=== PATIENT | male | born 1990 | race Caucasian/White ===

== ENCOUNTER 2023-05-20 00:02 | Emergency (ER) | payer OTHER, SELFPAY ==
[2023-05-20 00:04] VITALS: BP 143/91; PULSE 80; RESP 20; TEMP 37; O2SAT 100; BMI 19.9
--- NOTE | 2023-05-20 00:23 | CT_ITS ---
EXAM: CT ANGIOGRAPHY CHEST WITHOUT AND WITH INTRAVENOUS CONTRAST CLINICAL INDICATION: CP TECHNIQUE: Helically acquired angiography images were obtained of the chest without and with intravenous contrast. This CT exam was performed using one or more of the following dose reduction techniques: automated exposure control, adjustment of the mA and/or kV according to patient size, and/or use of iterative reconstruction technique. MIP reconstructed images were created and reviewed. CONTRAST: IV 100mL Isovue-370 RADIATION DOSE: CTDIvol = 5.55 mGy, DLP = 129.13 mGy-cm COMPARISON: No relevant prior studies available. FINDINGS: PULMONARY ARTERIES: Prior surgical changes involving the pulmonary outflow tract. No evidence of pulmonary embolism. AORTA: Unremarkable. Normal in caliber. No evidence of dissection. GREAT VESSELS OF AORTIC ARCH: Unremarkable. Normal in caliber. No evidence of dissection. SUPERIOR VENA CAVA: Left-sided SVC draining to the right atrium. LUNGS AND PLEURAL SPACES: No mass. No pleural effusion or thickening. No pneumothorax. HEART: Mild cardiomegaly. MEDIASTINUM: Unremarkable. No mediastinal or hilar adenopathy. Esophagus is unremarkable. No hiatal hernia. THYROID: Unremarkable. No thyroid lesions. BONES/JOINTS: Unremarkable. No suspicious lytic or blastic abnormality. CT/CTA Chest W/WO Contrast IMPRESSION: 1. No pulmonary embolism or other acute abnormality identified in the chest. 2. Cardiomegaly, and surgical changes consistent with the clinical history. Electronically Signed: Miguel Ángel Jackson MD at 1:26 EDT ,
[2023-05-20 00:30] LABS: Absolute Lymphocyte Count 2.98 X10^3/uL (0.83-4.51); Absolute Neutrophil Count 5.9 X10^3/uL (2.0-7.7); Basophil# 0.08 X10^3/uL; Basophil% 0.7 % (0-1); Eosinophil# 1.11 X10^3/uL; Eosinophils% 9.9 % (0-5); Hematocrit 49.3 % (40-54); Hemoglobin 16.4 g/dL (13.0-16.5); Lymphocyte # 2.98 X10^3/ul (0.83-4.51); Lymphocyte % 26.6 % (19-41); Mean Corp Hgb Conc 33.3 g/dL (32-36); Mean Corpuscular Hgb 29.7 pg (27.0-32.0); Mean Corpuscular Volume 89.2 fL (80-94); Mean Platelet Vol. 10.4 fl (6.2-12.0); Monocyte# 1.11 X10^3/uL; Monocyte% 9.9 % (0-10); NRBC Flagged by Analyzer 0 % (0-5); Neutrophil # 5.88 X10^3/uL (2.7-7.7); Neutrophil % 52.5 % (47-70); Platelet Count 153 K/mm3 (150-450); RBC Distribution Width CV 13.1 % (11.6-14.6); RBC Distribution Width SD 43.1 fl (35.1-43.9); Red Blood Count 5.53 M/mm3 (4.6-6.2); White Blood Count 11.2 K/mm3 (4.4-11.0)
[2023-05-20] MEDS: Ketorolac 30 MG/ML Syringe IV (00:40)
[2023-05-20] MEDS: 0.9% Normal Saline 1,000 ML 999 ML IV (00:40)
[2023-05-20 00:44] LABS: International Normalized Ratio 1.1; Prothrombin Time (Protime)PT. 13.9 SECONDS (11.7-14.9)
[2023-05-20 00:45] LABS: Partial Thromboplast Time 28.4 Seconds (24.1-36.2)
[2023-05-20 00:50] LABS: AST(SGOT) 32 U/L (15-37); Alanine Aminotransfer ALT/SGPT 36 U/L (16-61); Albumin, Serum 4.2 g/dL (3.2-5.0); Alkaline Phosphatase 98 U/L (45-117); Anion Gap 9 (5-15); BUN 12 mg/dL (7-18); BUN/Creat Ratio 12.4 RATIO (10-20); Bilirubin, Direct 0.23 mg/dL (0.00-0.30); Calcium,Total 8.9 mg/dL (8.5-10.1); Chloride 103 mmol/L (98-107); Creatinine, Serum 0.97 mg/dL (0.70-1.30); EST Glomerular Filtration Rate 96 mL/min (>60); Est Glom Filt Rate - Afr Amer 116 mL/min (>60); Globulin 4.1 g/dL (2.2-4.2); Glucose 112 mg/dL (74-106); Lipase 29 U/L (13-75); Magnesium 1.9 mg/dL (1.6-2.6); Potassium 3.4 mmol/L (3.5-5.1); Protein, Total 8.3 g/dL (6.4-8.2); Sodium Level 139 mmol/L (136-145); Troponin-I HS 10 pg/mL (3.0-78.0)
[2023-05-20 01:02] VITALS: BP 113/78; PULSE 65; RESP 19; O2SAT 98
--- NOTE | 2023-05-20 01:14 | EX.ED.DYSGE1 ---
HPI History of Present Illness Chief Complaint: Chest Pain Informant: patient and spouse/S.O. Narrative Narrative: Patient is a 32-year-old male with past medical history of Tetralogy of Fallot. He states he had 3 different cardiac surgeries when he was younger to correct this. He reports that he has been having chronic intermittent chest discomfort and has not been evaluated in multiple years. He does state he had similar event roughly 1 month ago and was seen at an outside hospital where his work-up was negative. He states that this evening he developed some midsternal to left-sided chest discomfort which has been constant for the last 3 hours. He states that this is abnormal for his recurrent chest pain as it is not typically last this long. Secondary to concern this could be cardiac in nature he does present for evaluation. He denies any previous surgery or history of DVT/PE. He states that there are no medications that he takes on a daily basis and he denies any history of illicit drug use 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 S/P TOF (tetralogy of Fallot) repair (~04/1996) Social History Smoking Status: Current every day smoker tobacco type: cigarettes alcohol intake: never substance use type: marijuana caffeine: Yes (all the time) Type: carbonated beverages ROS ROS ED Constitutional Constitutional ED: Denies chills or fever(s) ENT ENT ED: Denies sore throat Cardiovascular Cardiovascular: Reports chest pain; Denies palpitations or racing heartbeat Respiratory/Chest Respiratory/Chest: Denies cough or dyspnea Gastrointestinal Gastrointestinal: Denies abdominal pain, diarrhea, nausea or vomiting Genitourinary Genitourinary ED: Denies dysuria Musculoskeletal Musculoskeletal: Denies back pain, myalgias or neck pain Integumentary Denies rash Neurologic Neurologic: Denies headache(s) Hematologic/Lymphatic Hematologic/Lymphatic: Denies easy bleeding or easy bruising EXAM Physical Exam Const Vital Signs: 05/20/23 00:04 05/20/23 00:04 05/20/23 01:02 Temperature 98.6 F Temperature Source Oral Pulse Rate 80 65 Respiratory Rate 20 H 19 H Respiratory Effort Normal Blood Pressure 143/91 H 113/78 Blood Pressure Mean 108 89 Pulse Ox 100 98 05/20/23 02:00 Temperature Temperature Source Pulse Rate 65 Respiratory Rate 20 H Respiratory Effort Blood Pressure 111/85 H Blood Pressure Mean 93 Pulse Ox 97 Positive well nourished and well developed General Appearance ED: well developed HEENT Reports moist mucous membranes Eyes PERRL and EOMs intact bilaterally General Eye ED: Negative for scleral icterus Neck supple Neck Narrative: No nuchal rigidity or meningeal signs noted Chest Wall palpation of chest normal Chest Narrative: No bony deformity or crepitance palpated. Resp normal respiratory effort and clear to auscultation bilaterally Cardio regular rate and regular rhythm Rate: other Other Details: Radial and carotid pulses equal and symmetric Patient has a grade 5 out of 6 holosystolic murmur GI non-distended GI Narrative: There is faint tenderness to palpation in the midepigastric region without voluntary guarding or rigidity. No pulsatile mass or fluid wave Auscultation: normoactive bowel sounds Palpation: soft Extremity normal to inspection Extremity Narrative: No asymmetric edema no pitting edema negative Homans' sign bilaterally Neuro oriented x3, CN's II-XII intact bilaterally and no sensory deficits noted Sensorium / Orientation: alert Motor Exam: strength 5/5 throughout Psych mental status grossly normal Skin no rashes or lesions noted General Skin Exam: Negative for jaundice MDM MDM MDM Narrative Medical decision making narrative: Patient arrived to the ER no acute distress. He reported he has a history of recurrent chest pain but this 1 was lasting longer than his normal which was concerning for him. Chart review reveals he was seen roughly 1 month ago at an outside hospital for similar event and had a negative work-up. Therefore with recurrent symptoms I did elect to perform a CTA of the chest at this time along with cardiac work-up. Initial and delta troponin are normal at 10 his EKG is at his baseline with a right bundle branch block and his CTA reveals no acute chest pathology. On reevaluation the patient is resting comfortably. As differential is for acute coronary syndrome versus pulmonary embolus versus dissection versus pneumothorax versus pneumonia and those been ruled out by labs and imaging studies I do not feel there is need for further work-up and patient is otherwise safe for discharge. History & Record Review Discussion w/independent historian: Patient and Significant other Lab Data Attestation: I reviewed the patient's lab results. Labs: Laboratory Results - last 24 hr 05/20/23 05/20/23 00:06 01:57 WBC 11.2 H RBC 5.53 Hgb 16.4 Hct 49.3 MCV 89.2 MCH 29.7 MCHC 33.3 RDW Std Deviation 43.1 RDW Coeff of Boris 13.1 Plt Count 153 MPV 10.4 Immature Gran % (Auto) 0.400 Neut % (Auto) 52.5 Lymph % (Auto) 26.6 [place] % (Auto) 9.9 Eos % (Auto) 9.9 H Baso % (Auto) 0.7 Absolute Neuts (auto) 5.9 Absolute Lymphs (auto) 2.98 Nucleated RBC % 0 PT 13.9 INR 1.1 APTT 28.4 Sodium 139 Potassium 3.4 L Chloride 103 Carbon Dioxide 27.0 Anion Gap 9 BUN 12 Creatinine 0.97 Estim Creat Clear Calc 77.10 Est GFR (MDRD) Af Amer 116 Est GFR (MDRD) Non-Af 96 BUN/Creatinine Ratio 12.4 Glucose 112 H Calcium 8.9 Magnesium 1.9 Total Bilirubin 0.60 Direct Bilirubin 0.23 AST 32 ALT 36 Alkaline Phosphatase 98 Troponin I High Sens 10 10 Total Protein 8.3 H Albumin 4.2 Globulin 4.1 Lipase 29 Discharge Plan Triage Chief Complaint: Chest Pain ED Provider: Roman Palma Dx/Rx/DC Orders Clinical Impression: Nonspecific chest pain, Cardiac murmur, S/P TOF (tetralogy of Fallot) repair Instructions: ED Chest Pain, Uncertain Cause Prescriptions: No Action NK Primary Care Provider: Care Physician,No Primary Referrals: Care Physician,No Primary [Primary Care Provider] - Activity Restrictions/Additional Instructions: Your work-up today showed no signs of active heart damage blood clots or injury to your blood vessels. Follow-up with your health data administrator that you have scheduled for mid May and return to the ER should you have any further concerns Disposition Disposition: Home, Self Care
[2023-05-20 02:00] VITALS: BP 111/85; PULSE 65; RESP 20; O2SAT 97
[2023-05-20 02:25] LABS: Troponin-I HS 10 pg/mL (3.0-78.0)
[2023-05-20 02:46] VITALS: BP 109/83; PULSE 91; RESP 16; O2SAT 99
== END 2023-05-20 02:46 | disposition home or self-care (01) ==
PROVIDERS: Emergency Provider Emergency Medicine; Visit Provider Emergency Medicine
DX: R07.9 Chest pain, unspecified (principal); R01.1 Cardiac murmur, unspecified; Q21.3 Tetralogy of Fallot; F12.90 Cannabis use, unspecified, uncomplicated; F17.210 Nicotine dependence, cigarettes, uncomplicated
CPT/HCPCS: 71275; 80048; 80076; 83690; 83735; 84484; 85025; 85610; 85730; 93005; 96374; 99283; Q9967

== ENCOUNTER 2023-05-22 15:18 | Emergency (ER) | payer OTHER, SELFPAY ==
[2023-05-22 15:18] VITALS: BP 119/74; PULSE 71; RESP 16; TEMP 36.4; O2SAT 100; BMI 19.2
[2023-05-22 16:35] LABS: Absolute Lymphocyte Count 2.12 X10^3/uL (0.83-4.51); Absolute Neutrophil Count 8.1 X10^3/uL (2.0-7.7); Basophil# 0.09 X10^3/uL; Basophil% 0.7 % (0-1); Eosinophil# 0.79 X10^3/uL; Eosinophils% 6.5 % (0-5); Hematocrit 43.3 % (40-54); Lymphocyte # 2.12 X10^3/ul (0.83-4.51); Lymphocyte % 17.5 % (19-41); Mean Corp Hgb Conc 32.3 g/dL (32-36); Mean Corpuscular Hgb 29.5 pg (27.0-32.0); Mean Corpuscular Volume 91.4 fL (80-94); Mean Platelet Vol. 10.2 fl (6.2-12.0); Monocyte% 7.5 % (0-10); NRBC Flagged by Analyzer 0 % (0-5); Neutrophil # 8.14 X10^3/uL (2.7-7.7); Neutrophil % 67.5 % (47-70); Platelet Count 129 K/mm3 (150-450); RBC Distribution Width CV 13.1 % (11.6-14.6); RBC Distribution Width SD 44.1 fl (35.1-43.9); Red Blood Count 4.74 M/mm3 (4.6-6.2); White Blood Count 12.1 K/mm3 (4.4-11.0)
[2023-05-22 16:49] LABS: ALB/GLOB Ratio 1.2 RATIO (0.9-2.4); AST(SGOT) 50 U/L (15-37); Alanine Aminotransfer ALT/SGPT 59 U/L (16-61); Albumin, Serum 3.7 g/dL (3.2-5.0); Alkaline Phosphatase 84 U/L (45-117); Anion Gap 3 (5-15); BUN 21 mg/dL (7-18); BUN/Creat Ratio 19.3 RATIO (10-20); Calcium,Total 8.4 mg/dL (8.5-10.1); Chloride 108 mmol/L (98-107); Creatinine, Serum 1.09 mg/dL (0.70-1.30); EST Glomerular Filtration Rate 84 mL/min (>60); Est Glom Filt Rate - Afr Amer 101 mL/min (>60); Estimated Creatinine Clearance 66.15 ml/min; Globulin 3.2 g/dL (2.2-4.2); Glucose 103 mg/dL (74-106); Potassium 3.7 mmol/L (3.5-5.1); Protein, Total 6.9 g/dL (6.4-8.2); Sodium Level 139 mmol/L (136-145)
--- NOTE | 2023-05-22 17:29 | US_ITS ---
We are attempting to reach an attending provider to discuss findings. An addendum with communication details will be sent when the communication is complete. STUDY: ABDOMINAL ULTRASOUND - RIGHT UPPER QUADRANT REASON FOR VISIT: Male, 32 years old PAIN-RUQ TECHNIQUE: Ultrasound evaluation of the right upper quadrant was performed with real-time and static drummond-scale imaging. TECHNICAL QUALITY: Adequate. COMPARISON: None. FINDINGS: Liver: The liver measures 15.2 cm. There is normal echogenicity of the liver. The bile ducts are within normal limits. There is hepatic color flow. The direction of portal flow is hepatopetal. There is no demonstrated mass lesion. Gallbladder: Normal distended gallbladder. The gallbladder wall measures 7 mm. There is a positive sonographic Gaines''s sign. There is pericholecystic fluid. There are no gallstones. Common Bile Duct (C.B.D.): The common bile duct measures 3 mm. Pancreas: Normal size of the head, body and tail of the pancreas. There is normal echogenicity of the pancreas. There is no demonstrated pancreatic mass or cyst. Right Kidney: Normal size of the right kidney. The right kidney measures 9.5 cm. Normal renal cortex. The right cortex measures 1.1 cm. There is no demonstrated renal mass or cyst. There is no right hydronephrosis. US/Gallbladder IMPRESSION: Suspect acute acalculous cholecystitis. Electronically Signed: Sami Issa MD at 19:01 EDT ,
--- NOTE | 2023-05-22 17:30 | EX.ED.DYSGE1 ---
HPI <YONG Kathleen - Last Filed: 05/22/23 19:55> History of Present Illness Chief Complaint: Abd Pain Narrative Narrative: 32-year-old male with history of cardiac murmur, presenting to the emergency department with 3 days of right upper quad abdominal pain. Patient dates the pain started after he was eating, however now is all the time. Patient states the pain is worse with any movement, palpation. He did have 1 episode of vomitus however none the last 24 hours. He states he has been more constipated over the last several days. He states that his diet is poor, he does not eat a lot of fruits and vegetables, does not drink water and drinks a lot of soda. He denies any blood in his vomit or stool. 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 S/P TOF (tetralogy of Fallot) repair (~04/1996) Social History Smoking Status: Current every day smoker tobacco type: cigarettes alcohol intake: never substance use type: marijuana caffeine: Yes (all the time) Type: carbonated beverages ROS <YONG Kathleen - Last Filed: 05/22/23 19:55> ROS ED ROS Narrative Constitutional: Negative for fever, chills, weight loss, weakness Eyes: Negative for vision loss, vision change, double vision ENT: Negative for any sore throat, ear pain, congestion Cardiovascular: Negative for any chest pain, tightness, palpitations Respiratory: Negative for any cough, sputum production, hemoptysis, dyspnea, dyspnea on exertion, orthopnea Gastrointestinal: Negative for any nausea, vomiting, diarrhea, blood in stool, blood in vomit. Positive for abdominal pain, constipation : Negative for any urinary frequency, dysuria, retention, blood in urine Muscle skeletal: Negative for any muscle joint pain, stiffness, myalgias, arthralgias, neck pain, back pain Neurological: Negative for any headache, syncope, numbness or tingling, dizziness Skin: Negative for any rashes, lumps, itching, abrasions, lacerations Psychiatric: Negative for any depression, anxiety, stress, suicidal ideation, homicidal ideation Hematologic: Negative for any easy bruising, excessive bruising, easy bleeding Allergies: Negative for any eczema, hives, rash EXAM <YONG Kathleen - Last Filed: 05/22/23 19:55> Physical Exam Narrative Exam Narrative: Vital signs reviewed. HEET: Head normocephalic atraumatic, TMs clear bilaterally. Posterior pharynx is clear, moist mucous membranes. Nares clear bilaterally. Neck: Supple with no lymphadenopathy or tenderness. No signs of meningismus, negative jolt sign. Cardiac: Regular rate and rhythm no murmurs gallops or rubs, equal peripheral pulses bilaterally. Respiratory: Lungs clear to auscultation bilaterally. No chest tenderness. Abdomen: Soft, patient does have pain to the right upper quadrant, positive Gaines sign. No peritoneal signs. Nondistended. No abdominal bruit or pulsatile masses. No hepatosplenomegaly Extremities: No peripheral edema, no signs of gross trauma or deformity. Active full range of motion of all extremities. Neuro: Cranial nerves II through XII intact, no focal neurological deficits. Skin: Clean dry and intact with no rash, purpura, petechiae, vesicles or pustules. Backs/flank: No CVA tenderness, no midline spinal tenderness, no deformity. Psych: Normal mood and affect. No SI, HI or acute psychosis. Const Vital Signs: 05/22/23 15:18 05/22/23 19:35 05/22/23 20:23 Temperature 97.5 F L 98.0 F Temperature Source Temporal Pulse Rate 71 76 69 Respiratory Rate 16 18 16 Blood Pressure 119/74 126/83 H 116/84 H Blood Pressure Mean 89 97 94 Pulse Ox 100 99 96 Oxygen Delivery Method Room Air Room Air <Dr. Shane Porter MD - Last Filed: 05/22/23 20:36> Physical Exam Const Vital Signs: 05/22/23 15:18 05/22/23 19:35 05/22/23 20:23 Temperature 97.5 F L 98.0 F Temperature Source Temporal Pulse Rate 71 76 69 Respiratory Rate 16 18 16 Blood Pressure 119/74 126/83 H 116/84 H Blood Pressure Mean 89 97 94 Pulse Ox 100 99 96 Oxygen Delivery Method Room Air Room Air MDM <YONG Kathleen - Last Filed: 05/22/23 19:55> MDM Lab Data Labs: Laboratory Results - last 24 hr 05/22/23 05/22/23 16:18 18:33 WBC 12.1 H RBC 4.74 Hgb 14.0 Hct 43.3 MCV 91.4 MCH 29.5 MCHC 32.3 RDW Std Deviation 44.1 H RDW Coeff of Boris 13.1 Plt Count 129 L MPV 10.2 Immature Gran % (Auto) 0.300 Neut % (Auto) 67.5 Lymph % (Auto) 17.5 L [place] % (Auto) 7.5 Eos % (Auto) 6.5 H Baso % (Auto) 0.7 Absolute Neuts (auto) 8.1 H Absolute Lymphs (auto) 2.12 Nucleated RBC % 0 Sodium 139 Potassium 3.7 Chloride 108 H Carbon Dioxide 28.0 Anion Gap 3 L BUN 21 H Creatinine 1.09 Estim Creat Clear Calc 66.15 Est GFR (MDRD) Af Amer 101 Est GFR (MDRD) Non-Af 84 BUN/Creatinine Ratio 19.3 Glucose 103 Calcium 8.4 L Total Bilirubin 0.80 AST 50 H ALT 59 Alkaline Phosphatase 84 Total Protein 6.9 Albumin 3.7 Globulin 3.2 Albumin/Globulin Ratio 1.2 Lipase 18 Urine Color Yellow Urine Clarity Clear Urine pH 7.0 Ur Specific [place] 1.010 Urine Protein 30 H Urine Glucose (UA) Normal Urine Ketones Negative Urine Occult Blood Negative Urine Nitrite Negative Urine Bilirubin Negative Urine Urobilinogen 1 H Ur Leukocyte Esterase Negative Urine RBC 0 SEEN Urine WBC 0 SEEN Ur Squamous Epith Cells 0 SEEN Urine Bacteria 0 SEEN Urine Mucus 0 SEEN Radiography Diagnostic Testing: Clinical Impression(s) from Imaging Studies Gallbladder Ultrasound 05/22/23 17:29 IMPRESSION: Suspect acute acalculous cholecystitis. Electronically Signed: Sami Issa MD at 19:01 EDT , ADDENDUM: 05/22/231924 IMPRESSION: Suspect acute acalculous cholecystitis. N.B. : The above Results were Read Back by Sami Issa MD to Shane Porter MD, and understanding confirmed on 05/22/2023 19:18:57 (ET). Electronically Signed: Sami Issa MD at 19:01 EDT , Treatment and Re-Evaluation :: Patient appears to be in no obvious distress, patient's vital signs are stable, patient is in no distress. Patient presents to the emergency department for right upper quadrant abdominal pain. Secondary to the positive Gaines sign, patient will be given a right upper quadrant work-up. Patient received upper abdominal labs, right upper quadrant ultrasound. Patient laboratory values showed a CBC with a leukocytosis at 12.1. Patient's chemistries showed slight elevation in AST however no other abnormalities. Patient was given IV Toradol, GI cocktail. Patient reevaluate was feeling slightly improved. Patient's right upper quadrant ultrasound shows suspected acute acalculous cholecystitis. I spoke with surgery who came down to see the patient. Unfortunately patient does have tetralogy of Fallot, and has not had any work-up done on this for several years. Secondary this being a community hospital, the anesthesiologist feels uncomfortable. The patient will need to be transferred to a tertiary facility for work-up and cholecystectomy. Patient remained stable, patient looks nontoxic. We started on Zosyn, I spoke with Dr. Aguilera at [facility]. She will accept the patient, the patient be an ER to ER transfer. The patient was made aware, all questions answered, patient stable for transfer. <Dr. Shane Porter MD - Last Filed: 05/22/23 20:36> MDM MDM Narrative Medical decision making narrative: I have personally performed a face to face assessment of the patient and have reviewed the ANDREIA Note. I performed a substantive portion of the visit including all aspects of the following. My [place] findings include: History is remarkable for decreased appetite, right upper quadrant pain with nausea. He is uncertain whether his family history cholelithiasis. He denies intolerance to greasy or fried foods. He had 2 Samoan fries at 11:00. Pain presently does not radiate through to his back. Denies dysuria, frequency, urgency or hematuria. Denies history of renal ureterolithiasis. Denies cardiac or respiratory symptoms Exam is remarkable for significant tenderness in right upper quadrant with clinical Gaines sign. Patient states his pain did improve after the IV Toradol he was administered. With patient having decreased appetite clinical Gaines sign elevated white count ultrasound the gallbladder was obtained to assess for cholelithiasis, cholecystitis versus other etiology. Medical Decision Making differential diagnosis would include right lower lobe pneumonia, cholelithiasis, cholecystitis, liver disease, alcoholic liver disease etc. Other additions or changes: Because patient has history of tetralogy of Fallot that was repaired and has not had follow-up in 20 years anesthesia is reluctant to perform case here and recommends referral to tertiary care center. Patient was excepted by on-call surgeon at [facility]. Lab Data Attestation: I reviewed the patient's lab results. Lab results narrative: Count is elevated with no shift. Comprehensive metabolic panel is remarkable for an elevated BUN at 21. GFR is 84. AST is slightly elevated 50. Liver enzymes are otherwise unremarkable. Labs: Laboratory Results - last 24 hr 05/22/23 05/22/23 16:18 18:33 WBC 12.1 H RBC 4.74 Hgb 14.0 Hct 43.3 MCV 91.4 MCH 29.5 MCHC 32.3 RDW Std Deviation 44.1 H RDW Coeff of Boris 13.1 Plt Count 129 L MPV 10.2 Immature Gran % (Auto) 0.300 Neut % (Auto) 67.5 Lymph % (Auto) 17.5 L [place] % (Auto) 7.5 Eos % (Auto) 6.5 H Baso % (Auto) 0.7 Absolute Neuts (auto) 8.1 H Absolute Lymphs (auto) 2.12 Nucleated RBC % 0 Sodium 139 Potassium 3.7 Chloride 108 H Carbon Dioxide 28.0 Anion Gap 3 L BUN 21 H Creatinine 1.09 Estim Creat Clear Calc 66.15 Est GFR (MDRD) Af Amer 101 Est GFR (MDRD) Non-Af 84 BUN/Creatinine Ratio 19.3 Glucose 103 Calcium 8.4 L Total Bilirubin 0.80 AST 50 H ALT 59 Alkaline Phosphatase 84 Total Protein 6.9 Albumin 3.7 Globulin 3.2 Albumin/Globulin Ratio 1.2 Lipase 18 Urine Color Yellow Urine Clarity Clear Urine pH 7.0 Ur Specific [place] 1.010 Urine Protein 30 H Urine Glucose (UA) Normal Urine Ketones Negative Urine Occult Blood Negative Urine Nitrite Negative Urine Bilirubin Negative Urine Urobilinogen 1 H Ur Leukocyte Esterase Negative Urine RBC 0 SEEN Urine WBC 0 SEEN Ur Squamous Epith Cells 0 SEEN Urine Bacteria 0 SEEN Urine Mucus 0 SEEN Radiography Diagnostic Testing: Clinical Impression(s) from Imaging Studies Gallbladder Ultrasound 05/22/23 17:29 IMPRESSION: Suspect acute acalculous cholecystitis. Electronically Signed: Sami Issa MD at 19:01 EDT Reading Location ID and State: [id number] / [place] Tel , Service support , ADDENDUM: 05/22/231924 IMPRESSION: Suspect acute acalculous cholecystitis. N.B. : The above Results were Read Back by Sami Issa MD to Shane Porter MD, and understanding confirmed on 05/22/2023 19:18:57 (ET). Electronically Signed: Sami Issa MD at 19:01 EDT , Management Discussion w/another healthcare provider: Radiologist (Radiologist contacted me at 1916, Dr. Sami Issa to inform the patient has a calculus cholecystitis.) Discharge Plan Triage Chief Complaint: Abd Pain ED Midlevel Provider: James Dean ED Provider: Shane Porter Dx/Rx/DC Orders Clinical Impression: Tetralogy of Fallot, Acute acalculous cholecystitis Prescriptions: No Action NK Primary Care Provider: Care Physician,No Primary Referrals: Care Physician,No Primary [Primary Care Provider] - Disposition Disposition: Acute Care Hospital Discharge Location: [facility]
[2023-05-22] MEDS: Ketorolac 15 MG/ML Vial IV (18:00)
[2023-05-22] MEDS: 0.9% Normal Saline 1,000 ML 1000 ML IV (18:00)
[2023-05-22] MEDS: Mag Hydrox/Al Hydrox/Simeth 30 ML UDC PO (18:01)
[2023-05-22 18:35] LABS: Lipase 18 U/L (13-75)
[2023-05-22 18:46] LABS: Bacteria 0 SEEN /hpf (None Seen); Mucous, Urine 0 SEEN /hpf (<or=2+); Red Blood Cells-Urine 0 SEEN /hpf (0-5); Squamous Epithelial Cells - UA 0 SEEN /hpf (0-5); White Blood Cells 0 SEEN /hpf (0-5)
[2023-05-22 18:48] LABS: Color, Urine Yellow (Yellow); Glucose, Dipstick Normal (Normal); Ketone-Dipstick Negative (Negative); Leukocyte Esterase-Dipstick Negative /ul (Negative); Nitrite-Dipstick Negative (Negative); Occult Blood-Urine Negative /ul (Negative); Protein-Dipstick 30 mg/dl (Negative); Urine Bilirubin Dipstick Negative (Negative); Urine Clarity Clear (Clear); Urine Urobilinogen 1 mg/dl (Normal)
--- NOTE | 2023-05-22 19:26 | PCM.HP.STD ---
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 S/P TOF (tetralogy of Fallot) repair (~04/1996) Social History Smoking Status: Current every day smoker tobacco type: cigarettes alcohol intake: never substance use type: marijuana caffeine: Yes (all the time) Type: carbonated beverages Vital Signs Vital Signs Vital Signs: 05/22/23 15:18 Temperature 97.5 F L Temperature Source Temporal Pulse Rate 71 Respiratory Rate 16 Blood Pressure 119/74 Blood Pressure Mean 89 Pulse Ox 100 Oxygen Delivery Method Room Air Weight Weight: 105 lb Body Mass Index (BMI) 19.2 Results Lab / Micro Data 05/22/23 16:18 05/22/23 16:18 Labs: Laboratory Results - last 24 hr 05/22/23 16:18: WBC 12.1 H, RBC 4.74, Hgb 14.0, Hct 43.3, MCV 91.4, MCH 29.5, MCHC 32.3, RDW Std Deviation 44.1 H, RDW Coeff of Boris 13.1, Plt Count 129 L, MPV 10.2, Immature Gran % (Auto) 0.300, Neut % (Auto) 67.5, Lymph % (Auto) 17.5 L, [place] % (Auto) 7.5, Eos % (Auto) 6.5 H, Baso % (Auto) 0.7, Absolute Neuts (auto) 8.1 H, Absolute Lymphs (auto) 2.12, Nucleated RBC % 0, Sodium 139, Potassium 3.7, Chloride 108 H, Carbon Dioxide 28.0, Anion Gap 3 L, BUN 21 H, Creatinine 1.09, Estim Creat Clear Calc 66.15, Est GFR (MDRD) Af Amer 101, Est GFR (MDRD) Non-Af 84, BUN/Creatinine Ratio 19.3, Glucose 103, Calcium 8.4 L, Total Bilirubin 0.80, AST 50 H, ALT 59, Alkaline Phosphatase 84, Total Protein 6.9, Albumin 3.7, Globulin 3.2, Albumin/Globulin Ratio 1.2, Lipase 18 05/22/23 18:33: Urine Color Yellow, Urine Clarity Clear, Urine pH 7.0, Ur Specific [place] 1.010, Urine Protein 30 H, Urine Glucose (UA) Normal, Urine Ketones Negative, Urine Occult Blood Negative, Urine Nitrite Negative, Urine Bilirubin Negative, Urine Urobilinogen 1 H, Ur Leukocyte Esterase Negative, Urine RBC 0 SEEN, Urine WBC 0 SEEN, Ur Squamous Epith Cells 0 SEEN, Urine Bacteria 0 SEEN, Urine Mucus 0 SEEN Radiology Impression Gallbladder Ultrasound 05/22/23 17:29 IMPRESSION: Suspect acute acalculous cholecystitis. Electronically Signed: Sami Issa MD at 19:01 EDT , ADDENDUM: 05/22/23 192 IMPRESSION: Suspect acute acalculous cholecystitis. N.B. : The above Results were Read Back by Sami Issa MD to Shane Porter MD, and understanding confirmed on 05/22/2023 19:18:57 (ET). Electronically Signed: Sami Issa MD at 19:01 EDT ,
[2023-05-22 19:35] VITALS: BP 126/83; PULSE 76; RESP 18; O2SAT 99
--- NOTE | 2023-05-22 19:38 | CON.PCM.SX_ITS ---
Assessment & Plan Assessment/Plan (1) Acute cholecystitis: (2) Nonspecific chest pain: (3) S/P TOF (tetralogy of Fallot) repair: PLAN: Plan Patient has not followed up with cardiology for many years after his tetralogy of Fallot repair-about 15 years per pt. He does have appointment next month. Discussed with patient due to this along with the complex cardiac history would recommend transfer to tertiary care facility for surgery. Did discuss with anesthesia who also agreed. Mery Torrez M.D. Pager: [phone] [facility] [address] [place] [address], Outpatient Pavilion, [address] [place] [address] Office: [phone] HPI Consult Data Date of Consult: 05/22/23 HPI Narrative HPI Narrative: CECILIA LE, is a 32 M who presents to the ER due to right upper quadrant pain. Patient states has had this for about 3 days. Initially did come and go but for last day has been pretty constant. Patient has not really been able to eat much for the last 3 days. Patient states that did get worse try to eat some fries. Patient states in the past he did have symptoms like this but they did not last this long. Patient has a complex cardiac history with status post tetralogy of Fallot repair?in total 3 heart surgeries by the age of 11. Patient states he has not followed up with cardiology for about 15 years his first appointment is next month. Patient states he does have chest pain daily. Asked patient what he does for this he stated that he just breathes through it. Patient had ultrasound of the gallbladder showed gallbladder wall thickening of 7 mm no gallstones were seen on ultrasound, normal common bile duct, positive Gaines's. Patient's white blood count is 12.1. Patient's LFTs are within normal meds except for lipase AST. 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 S/P TOF (tetralogy of Fallot) repair (~04/1996) Social History Smoking Status: Current every day smoker tobacco type: cigarettes alcohol intake: never substance use type: marijuana caffeine: Yes (all the time) Type: carbonated beverages ROS Constitutional Constitutional: Reports anorexia Eyes Eyes: Denies change in vision ENT HEENT: Denies dysphagia Cardiovascular Cardiovascular: Reports chest pain Respiratory/Chest Respiratory/Chest: Denies cough Gastrointestinal Gastrointestinal: Reports abdominal pain and nausea; Denies dysphagia Genitourinary Genitourinary: Denies dysuria Musculoskeletal Musculoskeletal: Denies joint swelling Integumentary Integumentary: Denies jaundice Neurologic Neurologic: Denies dizziness Psychiatric Psychiatric: Denies depression Hematologic/Lymphatic Hematologic/Lymphatic: Denies easy bleeding Physical Exam Const alert and oriented x3 General Appearance: cooperative HEENT head/scalp atraumatic Neck supple Chest Chest Narrative: Well-healed sternal incision Resp normal respiratory effort Cardio Rate: regular rate GI soft to palpation Palpation: tender epigastric, RUQ and Gaines's sign Extremity normal to inspection Skin no rashes or lesions noted Neuro CN's II-XII intact bilaterally Psych mental status grossly normal Lab / Micro Data 05/22/23 16:18 05/22/23 16:18 Labs: Laboratory Results - last 24 hr 05/22/23 16:18: WBC 12.1 H, RBC 4.74, Hgb 14.0, Hct 43.3, MCV 91.4, MCH 29.5, MCHC 32.3, RDW Std Deviation 44.1 H, RDW Coeff of Boris 13.1, Plt Count 129 L, MPV 10.2, Immature Gran % (Auto) 0.300, Neut % (Auto) 67.5, Lymph % (Auto) 17.5 L, [place] % (Auto) 7.5, Eos % (Auto) 6.5 H, Baso % (Auto) 0.7, Absolute Neuts (auto) 8.1 H, Absolute Lymphs (auto) 2.12, Nucleated RBC % 0, Sodium 139, Potassium 3.7, Chloride 108 H, Carbon Dioxide 28.0, Anion Gap 3 L, BUN 21 H, Creatinine 1.09, Estim Creat Clear Calc 66.15, Est GFR (MDRD) Af Amer 101, Est GFR (MDRD) Non-Af 84, BUN/Creatinine Ratio 19.3, Glucose 103, Calcium 8.4 L, Total Bilirubin 0.80, AST 50 H, ALT 59, Alkaline Phosphatase 84, Total Protein 6.9, Albumin 3.7, Globulin 3.2, Albumin/Globulin Ratio 1.2, Lipase 18 05/22/23 18:33: Urine Color Yellow, Urine Clarity Clear, Urine pH 7.0, Ur Specific [place] 1.010, Urine Protein 30 H, Urine Glucose (UA) Normal, Urine Ketones Negative, Urine Occult Blood Negative, Urine Nitrite Negative, Urine Bilirubin Negative, Urine Urobilinogen 1 H, Ur Leukocyte Esterase Negative, Urine RBC 0 SEEN, Urine WBC 0 SEEN, Ur Squamous Epith Cells 0 SEEN, Urine Josette teria 0 SEEN, Urine Mucus 0 SEEN Radiology Impression Gallbladder Ultrasound 05/22/23 17:29 IMPRESSION: Suspect acute acalculous cholecystitis. Electronically Signed: Sami Issa MD at 19:01 EDT , ADDENDUM: 05/22/231924 IMPRESSION: Suspect acute acalculous cholecystitis. N.B. : The above Results were Read Back by Sami Issa MD to Shane Porter MD, and understanding confirmed on 05/22/2023 19:18:57 (ET). Electronically Signed: Sami Issa MD at 19:01 EDT , Charges/Coding Visit Charges Office Visits / Consults: [id number] OP Consult L4
[2023-05-22 20:23] VITALS: BP 116/84; PULSE 69; RESP 16; TEMP 36.7; O2SAT 96
== END 2023-05-22 22:58 | disposition short-term general hospital (02) ==
PROVIDERS: Nurse Practitioner; Emergency Provider Emergency Medicine; Visit Provider Emergency Medicine
DX: Q21.3 Tetralogy of Fallot (principal); K81.0 Acute cholecystitis; F12.90 Cannabis use, unspecified, uncomplicated; F17.210 Nicotine dependence, cigarettes, uncomplicated
CPT/HCPCS: 76705; 80053; 81001; 83690; 85025; 96365; 96366; 96375; 99283; J7030

== ENCOUNTER 2023-05-31 13:10 | Emergency (ER) | payer OTHER, MEDICAID, SELFPAY ==
[2023-05-31 13:11] VITALS: BP 132/97; PULSE 79; RESP 22; TEMP 36.4; O2SAT 99; BMI 18.6
--- NOTE | 2023-05-31 13:25 | EKG12_ITS ---
Test Reason : CP Blood Pressure : / mmHG Vent. Rate : 081 BPM Atrial Rate : 081 BPM P-R Int : 132 ms QRS Dur : 180 ms QT Int : 450 ms P-R-T Axes : 033 251 059 degrees QTc Int : 522 ms Normal sinus rhythm Right bundle branch block , plus right ventricular hypertrophy Abnormal ECG Confirmed by DARREL LEDEZMA, CLARA ([id number]), editorial writer KWAN PEREZ ([id number]) on 06/03/2023 10:45:32 AM Referred By: Confirmed By:CLARA ROJO MD
--- NOTE | 2023-05-31 13:26 | EDS_ITS ---
HPI History of Present Illness Chief Complaint: Chest Pain Narrative Narrative: 32-year-old male past medical history of tetralogy of Fallot, status postrepair in 1995, also states he has a leaky pulmonary valve presents with chest pain that he was having problems with yesterday evening, then again today. He relates history that he was admitted to [facility] on Thursday of last week and transferred up to [facility] for cholecystectomy. It was because he was having heart issues and he has had history of tetralogy of Fallot repair. They did not end up taking out his gallbladder because they found he did have a leaky pulmonary valve for which he takes Lasix. He was referred to [facility] to get his heart fixed prior to removal of his gallbladder. He states that he did not qualify because of his insurance so he quit his job and is trying to get Medicaid so he can have heart surgery. He states he was driving today, and felt chest pain and pressure all across his chest. He denies any nausea or vomiting. It is similar to when he had what he describes as a panic attack. 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 Severe pulmonic insufficiency Tetralogy of Fallot Home Medications NK 04/16/23 [History Last Taken Unknown] hydroxyzine pamoate 25 mg capsule (Vistaril) 25 mg PO TID PRN anxiety #15 caps 05/31/23 [Rx Last Taken Unknown] Allergy/AdvReac Type Severity Reaction Status Date / Time No Known Allergies Allergy Verified 05/31/23 13:11 Surgical History Hx of Kiko-Taussig shunt (~09/1991) Hx of cardiac catheterization (~05/12/01) Hx of pulmonic valve replacement (~11/03/00) 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 HEENT: No sore throat. No neck pain. No loss of vision. No rhinorrhea. Cardiovascular: Positive chest pressure/chest pain. No palpitations. No pedal edema. Respiratory: No cough, positive shortness of breath. Abdominal: No abdominal pain. No nausea. No vomiting. Genitourinary: No dysuria. No hematuria. Musculoskeletal: No myalgias. No arthralgias. Neurologic: No headaches. No dizziness. No lightheadedness. Skin: No rash. No change in color. Psychiatric: No depression. Mild anxiety. EXAM Physical Exam Narrative Exam Narrative: Afebrile. Vital signs noted. HEENT: Normocephalic. Atraumatic. PERRL, EOMI. Neck soft and supple. No point tenderness or step off. Cardiovascular: Regular rate and rhythm. Positive murmurs, rubs, or gallops appreciated. Respiratory: No tachypnea. Lungs clear to auscultation bilaterally. Gastrointestinal: Abdomen soft, nontender, with normoactive bowel sounds. No rebound or guarding. Neurological: Awake. Alert. Nonfocal, nonlateralizing. Skin: No rash. Normal color. No pallor. Musculoskeletal: No pedal edema. Full range of motion extremities. Const Vital Signs: 05/31/23 13:11 05/31/23 13:49 05/31/23 15:10 Temperature 97.5 F L Temperature Source Temporal Pulse Rate 79 74 Respiratory Rate 22 H 17 Blood Pressure 132/97 H 110/79 Blood Pressure Mean 108 89 Pulse Ox 99 97 Oxygen Delivery Method Room Air Room Air Room Air Heart Score History: Slightly/Non-Suspicious ECG: Normal Age: </= 45 years Risk Factors: 1 or 2 Risk Factors Score: 1 MDM MDM MDM Narrative Medical decision making narrative: I reviewed the patient's prior records. It had problems with chest pains and palpitations in the past and is a chronic cardiac murmur. He has had pulmonary insufficiency which is severe. There is no signs of fluid overload currently. Chest pain work-up will be pursued. EKG was obtained and interpreted by myself independently as normal sinus rhythm at 81 bpm without ectopy or acute ST changes. No STEMI. He does have a right bundle branch block and right ventricular hypertrophy, but no significant change from EKG dated May 20, 2023. Serial troponins will be obtained along with chest x-ray to rule out any pneumonia as a cause of his chest pressure. However, this is lower on the differential as he is afebrile and history and physical is not suggestive of this. He has had nonspecific chest pain in the past. I do feel that it may be related to panic attacks, and/or chronic conditions. I reviewed his laboratory work from today and he has slightly elevated leukocytosis of 16.2, but is chronically elevated, slight hemoconcentration of 17.4 with hematocrit 50.4, platelet count normal at 239. Review of his electrolyte panel shows sodium slightly low at 133, I am hesitant to give him a large amount of fluid given his pulmonic valve insufficiency. BUN slightly elevated 24 with creatinine 1.12. Glucose is appropriately elevated at 118 with a normal anion gap of 10. Initial high-sensitivity troponin is 6 with 2-hour being 8. I do feel he has been ruled out by biomarkers for cardiac ischemia. Chest x-ray in 1 view was interpreted by myself independently as no acute process, no pneumothorax or pneumonia. I reviewed the radiology report which confirms my independent interpretation. Upon repeat examination his blood pressure has normalized to 110/79. He is not hyperventilating any longer. I do feel that there is an anxiety component to this. He was told to follow-up with psychology and/or psych Yulia westbrook, or even his primary care physician. I do not feel benzodiazepines are indicated, but he will be given a short course of therapy of Vistaril to take as needed for anxiety. At this point in time, I feel he can be discharged safely home with follow-up and that he does not require observation. Return instructions to the emergency department were reviewed. Disposition is discharged home, in stable condition. History & Record Review Discussion w/independent historian: Patient Additional record(s) reviewed:: Prior ED visit and Prior labs Lab Data Attestation: I reviewed the patient's lab results. Labs: Laboratory Results - last 24 hr 05/31/23 05/31/23 13:25 15:26 WBC 16.2 H RBC 5.91 Hgb 17.4 H Hct 50.4 MCV 85.3 MCH 29.4 MCHC 34.5 RDW Std Deviation 38.9 RDW Coeff of Boris 12.6 Plt Count 239 MPV 10.1 Immature Gran % (Auto) 0.400 Neut % (Auto) 60.5 Lymph % (Auto) 21.7 [place] % (Auto) 6.9 Eos % (Auto) 9.3 H Baso % (Auto) 1.2 H Absolute Neuts (auto) 9.8 H Absolute Lymphs (auto) 3.50 Nucleated RBC % 0 Sodium 133 L Potassium 3.5 Chloride 99 Carbon Dioxide 24.0 Anion Gap 10 BUN 24 H Creatinine 1.12 Estim Creat Clear Calc 62.29 Est GFR (MDRD) Af Amer 98 Est GFR (MDRD) Non-Af 81 BUN/Creatinine Ratio 21.4 H Glucose 118 H Calcium 9.1 Troponin I High Sens 6 8 Radiography Diagnostic Testing: Clinical Impression(s) from Imaging Studies Chest X-Ray 05/31/23 13:50 IMPRESSION: No radiographic evidence of acute cardiopulmonary disease. Electronically Signed: Miguel Ángel Woodward MD at 14:05 EDT Reading Location ID and State: [facility] [place] , Service support , Discharge Plan Triage Chief Complaint: Chest Pain ED Provider: Nehemias Maldonado Dx/Rx/DC Orders Clinical Impression: Anxiety attack, S/P TOF (tetralogy of Fallot) repair, Chest pain Instructions: ED Chest Pain, Uncertain Cause, ED Panic Attack Prescriptions: New hydroxyzine pamoate [Vistaril] 25 mg capsule 25 mg PO TID PRN (Reason: anxiety) Qty: 15 0RF No Action NK Primary Care Provider: Care Physician,No Primary Referrals: James Covington MD [Med Staff - Active Staff] - As Needed Care Physician,No Primary [Primary Care Provider] - Activity Restrictions/Additional Instructions: Follow-up with your primary care provider as needed. Return with increased pain, new or worsening symptoms. Disposition Disposition: Home, Self Care
[2023-05-31 13:36] LABS: Absolute Neutrophil Count 9.8 X10^3/uL (2.0-7.7); Basophil# 0.19 X10^3/uL; Basophil% 1.2 % (0-1); Eosinophils% 9.3 % (0-5); Hematocrit 50.4 % (40-54); Hemoglobin 17.4 g/dL (13.0-16.5); Lymphocyte % 21.7 % (19-41); Mean Corp Hgb Conc 34.5 g/dL (32-36); Mean Corpuscular Hgb 29.4 pg (27.0-32.0); Mean Corpuscular Volume 85.3 fL (80-94); Mean Platelet Vol. 10.1 fl (6.2-12.0); Monocyte# 1.11 X10^3/uL; Monocyte% 6.9 % (0-10); NRBC Flagged by Analyzer 0 % (0-5); Neutrophil # 9.78 X10^3/uL (2.7-7.7); Neutrophil % 60.5 % (47-70); Platelet Count 239 K/mm3 (150-450); RBC Distribution Width CV 12.6 % (11.6-14.6); RBC Distribution Width SD 38.9 fl (35.1-43.9); Red Blood Count 5.91 M/mm3 (4.6-6.2); White Blood Count 16.2 K/mm3 (4.4-11.0)
--- NOTE | 2023-05-31 13:50 | RAD_ITS ---
EXAM: XR CHEST, 1 VIEW CLINICAL INDICATION: chest pain TECHNIQUE: Frontal view of the chest. COMPARISON: No relevant prior studies available. FINDINGS: LUNGS AND PLEURAL SPACES: Unremarkable. No consolidation or edema. No pneumothorax. No effusion. HEART: Unremarkable. Cardiac silhouette not enlarged. MEDIASTINUM: Central airways and mediastinal contour are unremarkable. BONES/JOINTS: Unremarkable. SOFT TISSUES: Unremarkable. RAD/Chest 1 View (Portable) IMPRESSION: No radiographic evidence of acute cardiopulmonary disease. Electronically Signed: Miguel Ángel Woodward MD at 14:05 EDT ,
[2023-05-31 13:56] LABS: Anion Gap 10 (5-15); BUN 24 mg/dL (7-18); BUN/Creat Ratio 21.4 RATIO (10-20); Calcium,Total 9.1 mg/dL (8.5-10.1); Chloride 99 mmol/L (98-107); Creatinine, Serum 1.12 mg/dL (0.70-1.30); EST Glomerular Filtration Rate 81 mL/min (>60); Est Glom Filt Rate - Afr Amer 98 mL/min (>60); Estimated Creatinine Clearance 62.29 ml/min; Glucose 118 mg/dL (74-106); Potassium 3.5 mmol/L (3.5-5.1); Sodium Level 133 mmol/L (136-145); Troponin-I HS (w/2H Reflex) 6 pg/mL (3.0-78.0)
[2023-05-31 15:10] VITALS: BP 110/79; PULSE 74; RESP 17; O2SAT 97
[2023-05-31 15:32] LABS: Reflex Troponin-HS? (from REC) Y
[2023-05-31 15:53] LABS: Troponin-I HS 8 pg/mL (3.0-78.0)
[2023-05-31 16:11] VITALS: BP 111/80
== END 2023-05-31 16:12 | disposition home or self-care (01) ==
PROVIDERS: Emergency Provider Emergency Medicine; Visit Provider Emergency Medicine
DX: F41.1 Generalized anxiety disorder (principal); Q21.3 Tetralogy of Fallot; R07.9 Chest pain, unspecified; F12.90 Cannabis use, unspecified, uncomplicated; F17.210 Nicotine dependence, cigarettes, uncomplicated; Z79.899 Other long term (current) drug therapy
CPT/HCPCS: 71045; 80048; 83880; 84484; 85025; 93005; 99284; A4216

== ENCOUNTER → 2023-10-15 | Outpatient (CLI) | payer OTHER, MEDICAID, SELFPAY ==
--- NOTE | 2023-10-15 11:06 | VDLE_ITS ---
Reason For Study: R/O Occlusion / DVT RIGHT LEFT GSV is normal. GSV is normal. CFV is compressible, spontaneous, competent CFV is compressible, spontaneous, competent, and demonstrates pulsatile venous flow. and demonstrates pulsatile venous flow. FV is compressible, spontaneous, competent FV is compressible, spontaneous, competent and demonstrates pulsatile venous flow. and demonstrates pulsatile venous flow. POP V is compressible, spontaneous, competent POP V is compressible, spontaneous, competent and demonstrates pulsatile venous flow. and demonstrates pulsatile venous flow. T/P Trunk is compressible. T/P Trunk is compressible. PTV is compressible. PTV is compressible. RT PerV is compressible. LT PerV is compressible. Procedure SSV is PARTIALLY COMPRESSIBLE with Vein Wall This is a venous duplex using B-mode, color thickening noted throughout the vessel. flow and spectral Doppler. Exam performed in department. The exam was diagnostic. VL/Venous Duplex US - Manjit Extrem Interpretation Summary Chronic superficial vein thrombosis is noted in the left small saphenous vein. Deep veins of the bilateral lower extremities are patent and compressible segme ntally. There is no evidence of bilateral lower extremity deep vein thrombosis. The bilateral great saphenous veins appear patent and compressible segmentally. Ordering Physician: LUKE CASAS Referring Physician: LUKE CASAS Performed By: Jag Pelletier RVT
--- OUTSIDE RECORDS SUMMARY | 2023-10-15 11:36 | XMS RPT_ITS | CCD ---
Author Name Unknown Address [address] [place] [address] Organization [facility] Care Team Providers Care Salon Designer Name Role Phone PHYSICIAN, NONE Primary Care Physician Unavailab dunia AYON MD, DR OBRIEN Attending Unavailab dunia PHYSICIAN, NONE Primary Care Unavailable NANY LEDEZMA, DR OBRIEN Attending Unavailab duque PHYSICIAN, NONE Primary Care Unavailable Unavailable Primary Care Provider Unavailabl e Unavailable Primary Care Provider Unavailabl e NONE, PCP Referring Unavailable VERNA BECKWITH Admitting Unavailable BRAD TOBAR Consulting Unavailable JERED BARRETO Attending Unavailable No algologist, Md Primary Care Provider Lesly vailable NO PRIMARY CAREMD Primary Care Unavailable TREE CARMONA Attending Unavailable TREE CARMONA Referring Unavailable NO PRIMARY MD CHARELNE Primary Care Unavailable TREE CARMONA Attending Unavailable KRISTINETREE ABDALLA P Referring Unavailable DOC, [facility] Primary Care Unavailable REFERRED, SELF Referring Unavailable KRISTINETREE ABDALLA Attending Unavailable DOC, MISC Primary Care Unavailable ARTIE MENDENHALL Attending Unavailable BELKIS, MISC Referring Unavailable NO PRIMARY CAREMD Primary Care Unavailable DOC, MISC Referring Unavailable KRISTINETREE ADBALLA P Attending Unavailable DOC, MISC Primary Care Unavailable JULIETA MARQUES Attending Unavailable JULIETA MARQUES Referring Unavailable Doc , [facility] [place] Care Provider Unavailabl e Medications Current Medications Medication Drug Class(es) Dates Sig (Normalized) Sig (Original) amoxicillin 500 mg oral capsule (3 sources) Penicillin-class Antibacterial Start: 06-12-2023 amoxicillin (AMOXIL) 500 MG capsule Take 4 Capsules (2,000 mg) by mouth as needed for Other (SBE prophylaxis) Take 1 hour before dental cleanings and procedures 4 Capsule 6 06/12/2023 Active amoxicillin 875 mg / clavulanate 125 mg oral tablet (6 sources) Penicillin-class Antibacterial Start: 05-25-2023 End: 05-28-2023 take 1 tablet by mouth in the morning amoxicillin-clavu lanate (Augmentin) 875-125 MG tablet Take 1 tablet by mouth in the morning and 1 tablet before bedtime. Do all this for 3 days. 6 tablet 0 05/25/2023 05/28/2023 Active Completed/Discontinued Medications Medication Drug Class(es) Dates Sig (Normalized) Sig (Original) Acetaminophen (2 sources) Start: 05-23-2023 End: 05-25-2023 take 1 tablet by mouth every six hours as needed for pain and fever acetaminophen (Tylenol) tablet 650 mg 100 ml calcium gluconate 20 mg/ml injection (2 sources) Start: 05-23-2023 End: 05-23-2023 calcium gluconate 2000 mg in 100 mL IVPB premix 1 ml HYDROmorphone hydrochloride 1 mg/ml cartridge (2 sources) Opioid Agonist Start: 05-23-2023 End: 05-25-2023 HYDROmorphone (Dilaudid) injection 0.5 mg melatonin 3 mg oral tablet (2 sources) Start: 05-23-2023 End: 05-25-2023 take 3 mg by mouth once daily as needed for sleep 3 mg, Oral, Nightly PRN, sleep, Starting on 05/23/23 at 0445 ondansetron ODT (Zofran-ODT) disintegrating tablet 4 mg (2 sources) Start: 05-23-2023 End: 05-25-2023 take 1 tablet by mouth every eight hours as needed for nausea and vomiting ondansetron ODT (Zofran-ODT) disintegrating tablet 4 mg oxyCODONE hydrochloride 5 mg oral tablet (2 sources) Opioid Agonist Start: 05-23-2023 End: 05-25-2023 take 1 tablet by mouth every four hours as needed for pain and pain oxyCODONE (Roxicodone) immediate release tablet 5 mg piperacillin 3000 mg / tazobactam 375 mg injection (2 sources) Penicillin-clas s Antibacterial, beta Lactamase Inhibitor Start: 05-23-2023 End: 05-24-2023 take 3375 mg intravenously every eight hours 3,375 mg, IntraVENous, at 12.5 mL/hr, Administer over 4 Hours, Every 8 hours, First dose on 05/23/23 at 0500, For 4 doses Dosage or interval has been adjusted per P&T Renal Dosing policy. premix bag Suspected Indication (Select all that apply): Intra-Abdominal Infection polyethylene glycol 3350 15021 mg powder for oral solution (2 sources) Osmotic Laxative Start: 05-23-2023 End: 05-25-2023 polyethylene glycol (PEG) 3350 (Miralax) packet 17 g Problems Problem Classification Problem Date Documented Date Episodic/Chronic Abdominal pain (11 sources) Right upper quadrant pain; Translations: [Right upper quadrant pain] Onset: 05-23-2023 05-22-2023 Episodic Cardiac and circulatory congenital anomalies (2 sources) Tetralogy of Fallot; Translations: [Tetralogy of Fallot] Onset: 08-28-2023 06-02-2023 Chronic Cardiac and circulatory congenital anomalies (8 sources) History of repair of tetralogy of Fallot; Translations: [Personal history of (corrected) congenital malformations of heart and circulatory system] Onset: 05-23-2023 05-23-2023 Episodic Complication of device; implant or graft (2 sources) Cardiac complication; Translations: [Other mechanical complication of other cardiac and vascular devices and implants, initial encounter] Onset: 08-28-2023 10-14-2023 Episodic Hemorrhoids (1 source) Thrombosed hemorrhoids; Translations: [Perianal venous thrombosis] Onset: 01-20-2023 Episodic Nonspecific chest pain (1 source) Chest pain; Translations: [Other chest pain] Onset: 04-01-2023 Episodic Other and ill-defined heart disease (1 source) Disorder of right cardiac ventricle ; Translations: [Cardiomegaly] Onset: 08-28-2023 08-28-2023 Chronic Other lower respiratory disease (3 sources) Orthopnea; Translations: [Orthopnea] Onset: 05-23-2023 05-23-2023 Episodic Other lower respiratory disease (1 source) Orthopnea; Translations: [Orthopnea] Onset: 05-23-2023 Episodic Residual codes; unclassified (1 source) H/O cardiac surgery; Translations: [Other specified postprocedural states] Onset: 08-28-2023 08-28-2023 Episodic Results Test Name Value Interpretation Reference Range Facil ity Vital Signs Date Time Vital Sign Value Performing Clinician Facility 05-25-2023 10:00-0400 Body mass index (BMI) [Ratio] 18.39 kg/m2 Glaileo Weathers MD Work Phone: [facility] 05-25-2023 10:00-0400 Body weight 45.6 kg Galileo Weathers MD Work Phone: [facility] 05-25-2023 09:02-0400 Body temperature 97.59 [degF] Galileo Weathers MD Work Phone: [facility] 05-25-2023 09:02-0400 Diastolic blood pressure 70 mm[Hg] Galileo Weathers MD Work Phone: [facility] 05-25-2023 09:02-0400 Heart rate 59 /min Galileo Weathers MD Work Phone: [facility] 05-25-2023 09:02-0400 Respiratory rate 15 /min Galileo Weathers MD Work Phone: [facility] 05-25-2023 09:02-0400 SaO2% (BldA) [Mass fraction] 100 % Galileo Weathers MD Work Phone: [facility] 05-25-2023 09:02-0400 Systolic blood pressure 105 mm[Hg] Galileo Weathers MD Work Phone: [facility] 05-25-2023 08:55-0400 Body height 157.5 cm Galileo Weathers MD Work Phone: [facility] 05-22-2023 14:39-0400 Body temperature 97.9 [degF] Misty Schwab APRN.ELECTRICAL LABORATORY TECHNICIAN Work Phone: [facility] 05-22-2023 14:39-0400 Body weight 49.9 kg Misty Schwab APRN.ELECTRICAL LABORATORY TECHNICIAN Work Phone: [facility] 05-22-2023 14:39-0400 Diastolic blood pressure 82 mm[Hg] Misty Schwab APRN.ELECTRICAL LABORATORY TECHNICIAN Work Phone: [facility] 05-22-2023 14:39-0400 Heart rate 68 /min Misty Schwab [employer] CAPTAIN.ELECTRICAL LABORATORY TECHNICIAN Work Phone: [facility] 05-22-2023 14:39-0400 Respiratory rate 18 /min Misty Schwab [employer] CAPTAIN.ELECTRICAL LABORATORY TECHNICIAN Work Phone: [facility] 05-22-2023 14:39-0400 SaO2% (BldA) [Mass fraction] 100 % Misty Zaheer [employer] CAPTAIN.ELECTRICAL LABORATORY TECHNICIAN Work Phone: [facility] 05-22-2023 14:39-0400 Systolic blood pressure 117 mm[Hg] Misty Schwab [employer] CAPTAIN.ELECTRICAL LABORATORY TECHNICIAN Work Phone: [facility] 04-01-2023 11:34-0400 Diastolic Blood Pressure Non-Invasive [address] MICAH AYON MD [facility] 04-01-2023 11:34-0400 Heart rate 60 /min DR MICAH AYON MD [facility] 04-01-2023 11:34-0400 Respiratory rate 19 /min DR MICAH AYON MD [facility] 04-01-2023 11:34-0400 Systolic Blood Pressure Non-Invasive [address] MICAH AYON MD [facility] 04-01-2023 10:13-0400 Diastolic Blood Pressure Non-Invasive [address] MICAH AYON MD [facility] 04-01-2023 10:13-0400 Systolic Blood Pressure Non-Invasive [address] MICAH AYON MD [facility] 04-01-2023 10:09-0400 Heart rate 63 /min DR MICAH AYON MD [facility] 04-01-2023 10:09-0400 Respiratory rate 15 /min DR MICAH AYON MD [facility] 04-01-2023 09:10-0400 Body height 157.[address] MICAH AYON MD [facility] 04-01-2023 09:10-0400 Body temperature 98.06 [degF] DR MICAH AYON MD [facility] 04-01-2023 09:10-0400 Body weight 47.[address] MICAH AYON MD [facility] 04-01-2023 09:10-0400 Diastolic Blood Pressure Non-Invasive [address] MICAH AYON MD [facility] 04-01-2023 09:10-0400 Heart rate 68 /min DR MICAH AYON MD [facility] 04-01-2023 09:10-0400 Respiratory rate 18 /min DR MICAH AYON MD [facility] 04-01-2023 09:10-0400 Systolic Blood Pressure Non-Invasive [address] MICAH AYON MD [facility] 01-20-2023 16:06-0400 Body temperature 98.78 [degF] DR MICAH AYON MD [facility] 01-20-2023 16:06-0400 Body weight [address] MICAH AYON MD [facility] 01-20-2023 16:06-0400 Diastolic Blood Pressure Non-Invasive [address] MICAH AYON MD [facility] 01-20-2023 16:06-0400 Heart rate 75 /min DR MICAH AYON MD [facility] 01-20-2023 16:06-0400 Respiratory rate 16 /min DR MICAH AYON MD [facility] 01-20-2023 16:06-0400 Systolic Blood Pressure Non-Invasive [address] MICAH AYON MD [facility] Encounters Encounter Date Encounter Type Care Provider Facility Start: 10-14-2023 End: 10-14-2023 Subsequent hospital visit by physician Verónica Lamb Handwork [employer]TAIN-ELECTRICAL LABORATORY TECHNICIAN Work Phone: [facility] - [facility] Procedures Date Procedure Procedure Detail Performing Clinician Start: 10-14-2023 Basic metabolic 2000 panel - Serum or Plasma Verónica Lamb Handwork [employer] CAPTAIN-ELECTRICAL LABORATORY TECHNICIAN Work Phone: Start: 10-14-2023 COMPLETE BLOOD COUNT WITH DIFFERENTIAL Verónica Adonis Handwork [employer] CAPTAIN-ELECTRICAL LABORATORY TECHNICIAN Work Phone: Start: 10-14-2023 TYPE & SCREEN Verónica Lmab Handwork [employer] CAPTAIN-ELECTRICAL LABORATORY TECHNICIAN Work Phone: Start: 06-24-2023 Natriuretic peptide Jose julia Carmona MD Work Phone: Start: 05-25-2023 Echo tthrc r-t 2d w/wom-mode compl spec&colr d Zachary Curry MD Work Phone: Start: 05-24-2023 Comprehensive metabo lic panel Verna Beckwith MD Work Phone: Start: 05-23-2023 Us abdominal real ti me w/image limited Karthikeyan Mccall MD Work Phone: Start: 05-23-2023 Radiologic exam ches t single view Karthikeyan Mccall MD Work Phone: Start: 05-23-2023 ABO and Rh group [Ty pe] in Blood by Confirmatory method Karthikeyan Mccall MD Work Phone: Start: 05-23-2023 Basic metabolic pane l calcium total Karthikeyan Mccall MD Work Phone: Start: 05-23-2023 C-reactive protein Gregory Baker MD Work Phone: Start: 05-23-2023 Ecg routine ecg w/le ast 12 lds trcg only w/o i&r Karthikeyan Mccall MD Work Phone: Plan of Treatment Date Care Activity Detail Author Start: 2041 Zoster Vaccines (1 of 2) Zoste r Vaccines (1 of 2) [employer] Start: 11-13-2023 End: 11-13-2023 Patient encounter procedure 11/13/2023 1:30 PM EST Office Visit [place] [address] [place], [place] [id number] Tree Carmona MD [address] [place], [place] [id number] [facility] Start: 10-20-2023 End: 10-20-2023 Admission to same day surgery center 10/20/2023 8:00 AM EST - 10/20/2023 1:40 PM EST Surgery [facility] [address] [place], [place] [id number] Artie Mendenhall MD [address] [place], [place] [id number] Cardiac Right Ventricle To Pulmonary Artery Conduit Placement [facility] Payers Date Payer Category [place] [id number] 2023-Present [address] [place] [address] [id number] 2023 Unknown [id number] 2022 Unknown [id number] 2022 Unknown [id number] 1990 Unknown [id number] 1990 Unknown [id number] 1990 Unknown [id number] 1990 Unknown [id number] 1990 Unknown [id number] Unknown [id number] Unknown [id number] Unknown [id number] Unknown [id number] Unknown [id number] Social History Date Type Detail Facility Tobacco smoking status [facility] Start: 1990 Sex Assigned At Male A [facility] Start: 05-22-2023 Tobacco smoking stat [facility] Never smoked tobacco [facility] Start: 05-22-2023 End: 05-23-2023 Tobacco use and exposure Smokeless tobacco non-user [facility] Start: 05-22-2023 End: 05-23-2023 History of Social function [facility] Start: 05-22-2023 End: 05-23-2023 Tobacco use panel [facility] Start: 1990 Sex Assigned At Not on file [facility] Start: 05-23-2023 [facility] History of tobacco use Cigarette Smoker [facility] Start: 05-23-2023 Alcohol intake Ex-drinker (finding) [facility] Within the last year , have you been afraid of your partner or ex-partner? No [facility] How often to you hav e a drink containing alcohol? Never [facility] How many standard drinks containing alcohol do you have on a typical day? Patient does not drink [facility] Start: 05-23-2023 Sexual orientation Heterosexual (fin ding) [facility] Start: 05-13-2023 End: 05-23-2023 Exposure to SARS-CoV-2 (event) Not sure [facility] Tobacco smoking stat [facility] Tobacco smoking consumption unknown [facility] Functional Status Date Assessment Result Facility 04-01-2023 Functional Status Up ad dustin [facility] 01-20-2023 Functional Status Independent [facility] 01-20-2023 Functional Status Standard Safet y ID band on, Call device within reach, Bed in low position, Wheels locked, Visitor at bedside [facility] Mental Status Date Assessment Result Facility 04-01-2023 Mental Status Orientation Oriented x 4 [facility] 04-01-2023 Mental [facility] 01-20-2023 Mental Status Orientation Oriented x 4 [facility] Clinical Notes 01-20-2023 to 08-14-2023 Telephone Encounter - Aishwarya Escobar - 06/03/2023 8:51 AM EDTTelephone Encounter - Penelope Finnegan RN - 05/27/2023 4:22 PM EDTTelephone Encounter - Penelope Finnegan RN - 05/27/2023 4:22 PM EDTAppointments Note Date & Type Note Facility 08-14-2023 Note CARDIAC CATHERIZATIO N CONFERENCE DISCUSSION Date of Discussion: 08/14/2023 Name: Omega Le : 1990 Age: 32 y.o. Traffic Survey Technician: FARHAT Discussed by: FARHAT Discussion: Omega Le is a 32 y.o. 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 He is s/p left lateral thoracotomy and subsequent 2 sternotomies. He had placement of 20 mm pulmonary homograft as RV to PA conduit in 2000. This conduit is dysfunctional and now has severe conduit stenosis. Omega has exercise intolerance and documented decreased exercise capacity on cardiopulmonary stress testing. He has not had any significant documented tachy or bradycardia arrhythmias. There is mild tricuspid valve regurgitation. His right ventricle is hypertrophied plus dilated. There is right atrial dilatation also. Reason(s) for discussion: Surgical versus transcatheter conduit replacement Studies reviewed: Cardiac MRI and echocardiogram Recommendations/Plan: Because of the size of the previous RV to PA conduit (20 mm) as well as prior history of endocarditis, he is not an ideal candidate for transcatheter replacement of the RV to PA conduit. Transcatheter replacement perhaps is technically feasible but will not serve this patient over her lifetime. It was felt that if we perform surgical re-replacement of the RV to PA conduit with the hope of placing a larger size valve such as 27 mm or so, then the future interventions could be transcatheter based. Although he has history of substance abuse, he has been clean for last few months. He quit smoking about 3 months ago. No other comorbidities noted. The group felt that he could not have his surgical RV to PA conduit replacement here at [facility]. Schedule CT surgery consult with Dr. Mendenhall Omega's is and due in November, it would be preferred to schedule this Omega in early September so that he recovers by the time his delivers. Summarized By: Tree Carmona MD Portions of this medical record have been created using voice recognition software and may have minor errors which are inherent in voice recognition systems. [facility] 08-13-2023 Note Omega gu is here for consultation at the request of Self Referred for Chief Complaint Patient presents with Follow Up TOF repair History of Presenting Problem Omega is a 32 y.o. male who returns for routine follow up. He reports no new complaints. Omega was born in July 1990, born at 32 weeks of gestation, stayed at [facility] for 8 weeks. First operation was left-sided BT shunt by Dr. 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 It was a 20 mm pulmonary homograft valve. Surgery performed in October 2000 at [facility] by Dr. Yo Zuniga. Subsequent to admissions for rule out endocarditis No medical records subsequent to April 2001 were available. Overall, it appears that he has a left lateral thoracotomy as well as 2 previous sternotomies. History of suspected endocarditis twice with no prior cardiac surgeries for endocarditis. He is adopted. He said his biological mother did a lot of drugs. His adopted mother in 2020 and his father is still alive. He is here with his younger brother today, who is also adopted. He was admitted 05/22-05/25 at [facility]. He was being evaluated for RUQ abdominal pain, concern for gallbladder disease. An echocardiogram was completed, it showed RV is severely dilated w moderately reduced systolic function,Tricuspid Valve: Severe (4+) regurgitation. He was started on IV Lasix and transitioned to daily oral dosing with Aldactone. His symptoms improved and he was discharged home. He has had shortness of breath recently with stair climbing, he feels heaviness in his chest. 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 He has 2 sons, a 10 and an 8 y.o and a baby on the way with his current girlfriend. Cardiac Review of System Cardiovascular: Patient's ECG reviewed. Patient has a murmur and palpitations (frequent). Patient has no chest pain, cyanosis, dizziness, edema or syncope. Patient has dyspnea with vigorous activity. He has no diaphoresis. He has no hypertension. Patient has a history of congenital heart defect. 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 Review of Systems Constitutional: Negative for diaphoresis and fever. Respiratory: Negative for cough, hemoptysis and shortness of breath. Cardiovascular: Positive for dyspnea on exertion (going up steps) and palpitations (frequent). Negative for syncope and cyanosis. Gastrointestinal: Positive for abdominal pain (3 weeks ago; resolved now). Negative for nausea and vomiting. Neurological: Negative for dizziness and weakness. Psychiatric/Behavioral: Positive for substance abuse (History of substance abuse, he is clean now. Occasionally takes weed). Negative for depression. The patient is not nervous/anxious. Past Medical History Past Medical History: Diagnosis Date TOF (tetralogy of Fallot) Past Surgical History: Procedure Laterality Date TETRALOGY OF FALLOT REPAIR Medications: Current Outpatient Medications: amoxicillin (AMOXIL) 500 MG capsule, Take 4 Capsules (2,000 mg) by mouth as needed for Other (SBE prophylaxis) Take 1 hour before dental cleanings and procedures, Disp: 4 Capsule, Rfl: 6 hydrOXYzine (VISTARIL) 25 MG capsule, Take by mouth every 6 hours (Patient not taking: Reported on 08/13/2023), Disp: , Rfl: Allergies: No Known Allergies Family Medical History: Omega is adopted. Omega History reviewed. No pertinent family history. Social History: Lives with his girlfriend. He is expecting a baby in November 2023. Past history of smoking. No current smoking or illicit drug use. Physical Exam: Vitals: 08/13/23 1142 BP: 119/72 Pulse: 83 Resp: 16 SpO2: 98% Height: (!) 156.9 cm Weight - Scale: 50 kg Body mass index is 20.31 kg/m . Physical Exam Vitals reviewed. Constitutional: General: He is not in acute distress. Appearance: He is well-developed. He is not diaphoretic. Eyes: General: No scleral icterus. Neck: Thyroid: No thyromegaly. Vascular: No JVD. Trachea: No tracheal deviation. Cardiovascular: Normal rate, regular rhythm and S1 normal. No extrasystoles are present. PMI is (more content not included)... [facility] 06-25-2023 Note CARDIAC CATHETERIZAT ION CONFERENCE DISCUSSION Date of Discussion: 06/25/2023 Name: Omega Le : 1990 Age: 32 y.o. Traffic Survey Technician: Kristine Discussed by: Mary Carmona Discussion: 32 y.o. male with history of Tetralogy of Fallot, poor historian. Two surgeries as an - likely BT shunt then full repair based on thoracotomy and sternotomy scars. Reports two additional surgeries for infections, could not clarify. No surgical records available - procedures not done at [facility]. 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 Symptomatic with SOB and easy fatigue with activity. Admitted at OSH for heart failure, and RUQ pain. Echo done, showing moderate to severe TR = 81 mm Hg, dilated RV with depressed systolic function, significant valvar PS with peak 67 mm Hg, at least moderate PI, small LV with good function. Holter with scattered PVC's, wide QRS with duration about 200 msec. Cardiac MRI performed and reviewed. Moderate to significant RVH with RV mass 53.1g. RV EDV/BSA is 103.8 cc/m2. RVEF is depressed, EF = 33%. LV mildly decreased in size, function normal. Flow void/dark oblong density seen adherent to the MPA wall in the region of the pulmonary valve which significantly restricts valve leaflet motion and creates PS. Peak velocity on MRI = 3.1 m/sec. There is moderate W[place] with PRF = 26-32%. Tricuspid regurgitant fraction is only 11% on this study, not well characterized. Normal MPA and branch PA dimensions. Cannot determine etiology of dark flow void/oblong density at the pulmonary valve - could be calcification, could be vestige of endocarditis. Given the symptoms present and depressed RV function, patient should have an intervention at this time. Discussion regarding next best steps in management. Recommendations/Plan: Obtain surgical records to understand what repair was done, if surgery done for endocarditis as patient suggests. Plan for cardiac catheterization once surgical notes are reviewed and history determined so as to plan for best intervention to help alleviate the gradient present and hopefully restore RV function. Summarized By: Mar Hernandez MD [facility] Television Operator [facility] Clinical Inspector Balance Wheel Motion of Pediatrics [facility] 06-12-2023 Note Omega Chandra Liana gu is here for consultation at the request of [facility] for Chief Complaint Patient presents with New Patient Visit H/O tetralogy of Fallot repair History of Presenting Problem Omega presents today to establish care with [facility]. He has Tetralogy of Fallot. He had 2 surgeries in infancy, his first was from the left thoracotomy approach and the second from the front, sternal approach. He has had 2 other surgeries, one around 6 y.o. and the last around 11 y.o. He thinks those were needed because of infections. His surgeries were done at [facility]. He was seen at [facility] by Dr Saucedo until age 13. He has not seen a Traffic Survey Technician since that time (about 19 to 20 years of lost to follow-up). He is adopted. He said his biological mother did a lot of drugs. His adopted mother in 2020 and his father is still alive. He is here with his younger brother today, who is also adopted. He was admitted 05/22-05/25 at [facility]. He was being evaluated for RUQ abdominal pain, concern for gallbladder disease. An echocardiogram was completed, it showed RV is severely dilated w moderately reduced systolic function,Tricuspid Valve: Severe (4+) regurgitation. He was started on IV Lasix and transitioned to daily oral dosing with Aldactone. His symptoms improved and he was discharged home. He has had shortness of breath recently with stair climbing, he feels heaviness in his chest. He had been smoking about a pack of cigarettes a day, but quit during the hospitalization. 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 He has 2 sons, a 10 and an 8 y.o and a baby on the way with his current girlfriend. Cardiac Review of System Cardiovascular: Patient's ECG reviewed. Patient has a murmur and palpitations (frequent). Patient has no chest pain, cyanosis, dizziness, edema or syncope. Patient has dyspnea with vigorous activity. He has no diaphoresis. He has no hypertension. Patient has a history of congenital heart defect. 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 Review of Systems Constitutional: Negative for diaphoresis and fever. Respiratory: Negative for cough, hemoptysis and shortness of breath. Cardiovascular: Positive for dyspnea on exertion (going up steps) and palpitations (frequent). Negative for syncope and cyanosis. Gastrointestinal: Positive for abdominal pain (3 weeks ago; resolved now). Negative for nausea and vomiting. Neurological: Negative for dizziness and weakness. Psychiatric/Behavioral: Positive for substance abuse (History of substance abuse, he is clean now. Occasionally takes weed). Negative for depression. The patient is not nervous/anxious. Past Medical History Past Medical History: Diagnosis Date TOF (tetralogy of Fallot) Past Surgical History: Procedure Laterality Date TETRALOGY OF FALLOT REPAIR Medications: Outpatient Encounter Medications as of 06/12/2023 Medication Sig Dispense Refill hydrOXYzine (VISTARIL) 25 MG capsule Take by mouth every 6 hours spironolactone (ALDACTONE) 25 MG tablet Take by mouth furosemide (LASIX) 20 MG TABS tablet Take by mouth 2 times daily No facility-administered encounter medications on file as of 06/12/2023. Allergies: Not on File Family Medical History: Omega is adopted. Omega History reviewed. No pertinent family history. Social History: Lives with his girlfriend. He is expecting a baby in November 2023. Past history of smoking. No current smoking or illicit drug use. Physical Exam: Vitals: 06/12/23 0934 BP: 134/89 Resp: 20 SpO2: 100% Height: 157.5 cm Weight - Scale: (!) 46.5 kg Body mass index is 18.75 kg/m . Physical Exam Vitals reviewed. Constitutional: General: He is not in acute distress. Appearance: He is well-developed. He is not diaphoretic. Eyes: General: No scleral icterus. Neck: Thyroid: No thyromegaly. Vascular: No JVD. Trachea: No tracheal deviation. Cardiovascular: Normal rate, regular rhythm and S1 normal. No extrasystoles are present. PMI is not displaced. Exam reveals no gallop, no S3, no friction rub and no aortic ejection click. Pulses are strong and palpable. Murmur heard. Systolic murmur is present with a grade of 3/6. No diastolic murmur is present. Pulses: Radial pulses are 2+ on the right side. Femoral pulses are 2+ on the right side. S2 to appear to be single and loud Pulmonary: Effort: Pulmonary effort is normal. No respiratory distress. Breath sounds: Normal breath sounds. No wheezing. Abdominal: General: Bowel sounds are normal. There is no distension. Palpations: Abdomen is soft. Tenderness: There is no abdominal tenderness. Musculoskeletal: Cervical back: Neck supple. Skin: General: Skin is dry. Coloration: Skin is not pale. Nails: There is no clubbing or cyanosis. Sternotomy scar and left thoracotamy scar noted (more content not included)... [facility] 06-03-2023 Miscellaneous Notes Reminder has been placed in the mail. Aishwarya Escobar June 03, 2023 8:52 AM documented in this encounter [facility] 05-27-2023 Telephone encounter Note LMOVM for pt with meds and follow up appt information s/p hsop call. [facility] 05-27-2023 Miscellaneous Notes LMOVM for pt with meds and follow up appt information s/p hsop call. Discharged with heart failure on 05/25. Needs 72 hour post discharge phone call. (Has appointment [facility]12 with congenital cardiology) documented in this encounter [facility] 05-25-2023 Telephone encounter Note Discharged with heart failure on 05/25. Needs 72 hour post discharge phone call. (Has appointment with [facility] on 06/12 with congenital cardiology) [facility] Work Phone: 05-25-2023 Miscellaneous Notes Discharged with heart failure on 05/25. Needs 72 hour post discharge phone call. (Has appointment with [facility] on 06/12 with congenital cardiology) documented in this encounter [facility] 05-25-2023 Note Discharge Summary Omega Le : 1990 ADMIT DATE: 05/22/2023 DISCHARGE DATE: 05/25/2023 PRIMARY CARE PHYSICIAN: No primary care provider on file. VISIT STATUS: Admission CODE STATUS: Full Code DISCHARGE DIAGNOSES: Principal Problem: RUQ pain HOSPITAL COURSE: Omega is a 32 y.o. male who was diagnosed with chest wall pain one month ago (04/01/23) at [facility], then on the day of ED presentation he went to [facility] for 3-days of progressively worsening RUQ pain that was exacerbated by eating. He had peritoneal signs and was directed to the ED. Went to [place] ED where he reported several months of intermittent chest & years of intermittent abdominal pain. US was c/f acute cholecystitis, so he was transferred to [facility] ED. Imaging here with edematous gallbladder wall and negative sonographic Gaines's. Patient also complaining of orthopnea & CALDERÓN there was concern that he might be in decompensated CHF given his tetrology, with cholecystalgia due to congestion--with potential to resolve GB issues by treating his cardiac status without resorting to cholecystectomy. Was lost to cardiology follow-up and has not been seen since age 13, though he has an upcoming appt in May to reestablish care. The following is a summary of his diagnosis/management during his stay here at [facility]: Acute, acute on chronic, unstable/uncontrolled chronic problems: # Volume overload possibly pulmonary insufficiency with RV dysfunction - cardiology saw. Dr. Hernandez states severe RV dysfunction, 4+ TR, possible severe pulmonic stenosis. He appears euvolemic on exam and feels well today. He's had 2 doses of Lasix 20 mg IV. He will likely need further imaging and repeat procedure/surgery. Given his young age, he should also establish with a transplant program as well. This would be best established at [facility] or [facility]. Otherwise, Dr. Hernandez states okay for discharge on lasix 20mg daily and aldactone daily as well. # Acute cholecystalgia suspected d/t #1 - surgery has seen, states no surgery. EXTREMELY low probability of cholecystitis given prior evaluation and unequivocally normal CRP & PCT this AM, dc'd pip/tazo earlier, however as per surgery rec will order amox/clav with final day 05/28; discussed this with patient, agrees to remain on antibx # Thrombocytopenia, mild # Elevated AST, mild # Elevated INR, mild # Leukocytosis, resolved # Hypocalcemia, resolved Stable chronic problems affecting care, new non-acute diagnoses: Tetrology of Fallot s/p repair & PV replacement Bifascicular block/RBBB and LAFB Polysubstance abuse (tobacco, cocaine, heroin) Physical exam: Eyes: no scleral icterus Oral: moist Heart: S1S2 heard, RRR, loud SM 3-4/6 heard Lungs: CTAB Abdomen: soft NT ND BS+ SIGNIFICANT DIAGNOSTIC STUDIES: 2D echo: Left Ventricle: Left ventricle is smaller than normal. Normal wall thickness. Normal left ventricular systolic function. The EF by visual approximation is 70%. Normal wall motion. Septal flattening in diastole and systole consistent with right ventricular volume and pressure overload. Right Ventricle: Right ventricle is severely dilated. Moderately reduced systolic function. Tricuspid Valve: Severe (4+) regurgitation. Unable to assess RVSP reliably because of severe PS/Moderate PI. However the RVSP is severely elevated as TR peak velocity is 4.5 m/s (peak gradient 81 mmhg) Pulmonic Valve: The pulmonic valve was not well visualized. Severely thickened cusps. Moderate (2+) regurgitation. Severe stenosis noted. PV mean gradient is 39 mmHg. PV peak velocity is 4.1 m/s. PV peak gradient is 68 mmHg. Right Atrium: Right atrium is severely dilated. Patient has had had TOF repair surgeries as a child, but no details are available . Recommend Cardiac MR for further evaluation of anatomy, RV and pulmonic valve. CONSULTANTS: Cardiology General surgery RECOMMENDED NEXT STEPS: Follow up at DISCHARGE MEDICATIONS: Medication List START taking these medications amoxicillin-clavulanate 875-125 MG tablet Commonly known as: Augmentin Take 1 tablet by mouth in the morning and 1 tablet before bedtime. Do all this for 3 days. furosemide 20 MG tablet Commonly known as: Lasix Take 1 tablet (20 mg) by mouth daily. Do not start before May 26, 2023. Start taking on: May 26, 2023 spironolactone 25 MG tablet Commonly known as: Aldactone Take 1 tablet (25 mg) by mouth daily. Where to Get Your Medications These medications were sent to [id number] - [place], [place] - [address] [place] [address] amoxicillin-clavulanate 875-125 MG tablet furosemide 20 MG tablet spironolactone 25 MG tablet DIET: Adult diet Regular ACTIVITY: as recommended per cardiology (Dr. Hernandez spoke with him about avoiding heavy lifting/pulling but states he's okay to go back to work. ) (more content not included)... [facility] 05-25-2023 Hospital Discharg e instructions Corky Hernandez MD - 05/25/2023 2:08 PM EDT Activity restrictions: Patient advised to avoid heavy pushing, pulling, and lifting (>15 lbs). Low- to moderate-level activity such as walking, light lifting, climbing step stools/ladders are not restricted. Margaret Sprague RN - 05/25/2023 2:22 PM EDT [place] [phone] [place] [address] Next Steps: Appointment: TBD Instructions: Dr Pauline Oilvia [address] [place] [phone] Cardiology [facility] Next Steps: Appointment: TBD Instructions: Heart and Vascular [facility] [phone] Cardiology documented in this encounter [facility] 05-25-2023 Hospital course Narrative Discharge Summary Omega Le : 1990 ADMIT DATE: 05/22/2023 DISCHARGE DATE: 05/25/2023 PRIMARY CARE PHYSICIAN: No primary care provider on file. VISIT STATUS: Admission CODE STATUS: Full Code DISCHARGE DIAGNOSES: Principal Problem: RUQ pain HOSPITAL COURSE: Omega is a 32 y.o. male who was diagnosed with chest wall pain one month ago (04/01/23) at [facility], then on the day of ED presentation he went to [facility] for 3-days of progressively worsening RUQ pain that was exacerbated by eating. He had peritoneal signs and was directed to the ED. Went to [place] ED where he reported several months of intermittent chest & years of intermittent abdominal pain. US was c/f acute cholecystitis, so he was transferred to [facility] ED. Imaging here with edematous gallbladder wall and negative sonographic Gaines's. Patient also complaining of orthopnea & CALDERÓN there was concern that he might be in decompensated CHF given his tetrology, with cholecystalgia due to congestion--with potential to resolve GB issues by treating his cardiac status without resorting to cholecystectomy. Was lost to cardiology follow-up and has not been seen since age 13, though he has an upcoming appt in May to reestablish care. The following is a summary of his diagnosis/management during his stay here at [facility]: Acute, acute on chronic, unstable/uncontrolled chronic problems: # Volume overload possibly pulmonary insufficiency with RV dysfunction - cardiology saw. Dr. Hernandez states severe RV dysfunction, 4+ TR, possible severe pulmonic stenosis. He appears euvolemic on exam and feels well today. He's had 2 doses of Lasix 20 mg IV. He will likely need further imaging and repeat procedure/surgery. Given his young age, he should also establish with a transplant program as well. This would be best established at [facility] or [facility]. Otherwise, Dr. Hernandez states okay for discharge on lasix 20mg daily and aldactone daily as well. # Acute cholecystalgia suspected d/t #1 - surgery has seen, states no surgery. EXTREMELY low probability of cholecystitis given prior evaluation and unequivocally normal CRP & PCT this AM, dc'd pip/tazo earlier, however as per surgery rec will order amox/clav with final day 05/28; discussed this with patient, agrees to remain on antibx # Thrombocytopenia, mild # Elevated AST, mild # Elevated INR, mild # Leukocytosis, resolved # Hypocalcemia, resolved Stable chronic problems affecting care, new non-acute diagnoses: Tetrology of Fallot s/p repair & PV replacement Bifascicular block/RBBB and LAFB Polysubstance abuse (tobacco, cocaine, heroin) Physical exam: Eyes: no scleral icterus Oral: moist Heart: S1S2 heard, RRR, loud SM 3-4/6 heard Lungs: CTAB Abdomen: soft NT ND BS+ SIGNIFICANT DIAGNOSTIC STUDIES: 2D echo: Left Ventricle: Left ventricle is smaller than normal. Normal wall thickness. Normal left ventricular systolic function. The EF by visual approximation is 70%. Normal wall motion. Septal flattening in diastole and systole consistent with right ventricular volume and pressure overload. Right Ventricle: Right ventricle is severely dilated. Moderately reduced systolic function. Tricuspid Valve: Severe (4+) regurgitation. Unable to assess RVSP reliably because of severe PS/Moderate PI. However the RVSP is severely elevated as TR peak velocity is 4.5 m/s (peak gradient 81 mmhg) Pulmonic Valve: The pulmonic valve was not well visualized. Severely thickened cusps. Moderate (2+) regurgitation. Severe stenosis noted. PV mean gradient is 39 mmHg. PV peak velocity is 4.1 m/s. PV peak gradient is 68 mmHg. Right Atrium: Right atrium is severely dilated. Patient has had had TOF repair surgeries as a child, but no details are available . Recommend Cardiac MR for further evaluation of anatomy, RV and pulmonic valve. CONSULTANTS: Cardiology General surgery RECOMMENDED NEXT STEPS: Follow up at DISCHARGE MEDICATIONS: Medication List START taking these medications amoxicillin-clavulanate 875-125 MG tablet Commonly known as: Augmentin Take 1 tablet by mouth in the morning and 1 tablet before bedtime. Do all this for 3 days. furosemide 20 MG tablet Commonly known as: Lasix Take 1 tablet (20 mg) by mouth daily. Do not start before May 26, 2023. Start taking on: May 26, 2023 spironolactone 25 MG tablet Commonly known as: Aldactone Take 1 tablet (25 mg) by mouth daily. Where to Get Your Medications These medications were sent to [id number] - [place], [place] - [address] [place] [address] amoxicillin-clavulanate 875-125 MG tablet furosemide 20 MG tablet spironolactone 25 MG tablet DIET: Adult diet Regular ACTIVITY: as recommended per cardiology (Dr. Hernadnez spoke with him about avoiding heavy lifting/pulling but states he's okay to go back to work. ) COMPLEXITY OF FOLLOW UP: [] Moderate Complexity: follow up within 7-14 calendar days (10122) [] Severe Complexity: follow up within 7 calendar days (63212) FOLLOW UP TESTING, PENDING RESULTS OR REFERRALS AT TRANSITIONAL CARE VISIT: [] Yes [] No PENDING STUDIES: DISPOSITION: Home FACILITY/HOME CARE AGENCY NAME: Follow up with Loretta Aguilera MD [address] [place] [address] [address] [facility] [phone] Schedule an appointment as soon as possible for a visit if right upper quadrant pain persists. [place] [address] [facility] [phone] INSTRUCTIONS TO MA/SW: Please call patient on day after discharge (must document patient contacted within 2 business days of discharge). FOLLOW UP QUESTIONS FOR MA/SW: 1. Did you get medications filled and taking them as instructed from discharge? 2. Are you following your discharge instructions from your hospital stay? 3. Please confirm patient is scheduled for a follow up appointment within the above time frame. DISCHARGE TIME: > 31 minutes SIGNED: JERED BARRETO MD 05/25/2023, 12:51 PM documented in this encounter [facility] 05-25-2023 Note Formatting of this n ote might be different from the original. Care Managment Initial Assessment Date: 05/25/2023 Patient Name: Omega Le : 1990 Patient Information Source of Information: Patient Cognition/Language: WFL - Within Functional Limits Permission given to speak with patient residential sales representative/caregiver as indicated: Confirmation of Payer with patient/family: Payer Name: : No Confirmation of Primary Care Physician: No PCP Primary Caregiver: Self If assistance needed, confirmed caregiver ready, willing and able to care for patient at discharge: Confirmed with: Living Arrangements Current Residence: Apartment Number of Floors 2 Number of Entry Steps: 5 or more Bed/Bath Levels: Both second floor Facility: Facility Name: Plan to Return: Lives with: Spouse/significant other Support Systems: Spouse/significant other Activities of Daily Living Ambulation: Independent Bathing/Dressing: Independent Elimination/Continence/Toileting : Independent Feeding: Independent Who Assists with Activities of Daily Living: Instrumental Activities of Daily Living Prescription Coverage: Yes Pharmacy Used: [facility] [place] Medication Management: Independent Transportation/Shopping: Independent Transportation Mode: Car Needs Assistance with Transportation at Discharge: No Meal Preparation: Independent Laundry/Cleaning: Independent Finances/Bill Paying: Independent Communication: Independent Types of Care Services/Equipment Utilized Care Services: Dialysis Type: Durable Medical Equipment: Patient's Goal/Discharge Plan Patient expects to be discharged to: home Discharge Planning Actions: No needs identified Patient's Choice Rights and [employer] and Collaborative Relationships Disclosed as Indicated for Post-Acute Care: Interdisciplinary Team Engagement: Social Work Referral for: Additional Information: Pt admitted for orthopnea, acute cholecystitis, RUQ pain. HX Tof. His pain has resolved, denies SOB, orthopnea. Diuresed with 2 doses of Lasix. Cardiology, gen surg following. Met with pt at bedside, introduced self and role. Pt resides with his girlfriend, is ind with ADLs, drives. States he has healthcare ins - copy of insurance cards given to bed control to be entered into system. States he is in the process of getting set up with a PCP in [place] and plans to follow up with cardiology - it's all catching up with me now. Anticipate home, no needs. Sherine Baker RN [facility] [employer] 05-25-2023 Note Formatting of this n ote might be different from the original. Care Managment Initial Assessment Date: 05/25/2023 Patient Name: Omega Le : 1990 Patient Information Source of Information: Patient Cognition/Language: WFL - Within Functional Limits Permission given to speak with patient residential sales representative/caregiver as indicated: Confirmation of Payer with patient/family: Payer Name: [place]: No Confirmation of Primary Care Physician: No PCP Primary Caregiver: Self If assistance needed, confirmed caregiver ready, willing and able to care for patient at discharge: Confirmed with: Living Arrangements Current Residence: Apartment Number of Floors 2 Number of Entry Steps: 5 or more Bed/Bath Levels: Both second floor Facility: Facility Name: Plan to Return: Lives with: Spouse/significant other Support Systems: Spouse/significant other Activities of Daily Living Ambulation: Independent Bathing/Dressing: Independent Elimination/Continence/Toileting : Independent Feeding: Independent Who Assists with Activities of Daily Living: Instrumental Activities of Daily Living Prescription Coverage: Yes Pharmacy Used: [facility] [place] Medication Management: Independent Transportation/Shopping: Independent Transportation Mode: Car Needs Assistance with Transportation at Discharge: No Meal Preparation: Independent Laundry/Cleaning: Independent Finances/Bill Paying: Independent Communication: Independent Types of Care Services/Equipment Utilized Care Services: Dialysis Type: Durable Medical Equipment: Patient's Goal/Discharge Plan Patient expects to be discharged to: home Discharge Planning Actions: No needs identified Patient's Choice Rights and [employer] and Collaborative Relationships Disclosed as Indicated for Post-Acute Care: Interdisciplinary Team Engagement: Social Work Referral for: Additional Information: Pt admitted for orthopnea, acute cholecystitis, RUQ pain. HX Tof. His pain has resolved, denies SOB, orthopnea. Diuresed with 2 doses of Lasix. Cardiology, gen surg following. Met with pt at bedside, introduced self and role. Pt resides with his girlfriend, is ind with ADLs, drives. States he has healthcare ins - copy of insurance cards given to bed control to be entered into system. States he is in the process of getting set up with a PCP in [place] and plans to follow up with cardiology - it's all catching up with me now. Anticipate home, no needs. Sherine Baker RN T [facility] 05-25-2023 Miscellaneous Notes Care Managment Initial Assessment Date: 05/25/2023 Patient Name: Omega Le : 1990 Patient Information Source of Information: Patient Cognition/Language: WFL - Within Functional Limits Permission given to speak with patient residential sales representative/caregiver as indicated: Confirmation of Payer with patient/family: Payer Name: : No Confirmation of Primary Care Physician: No PCP Primary Caregiver: Self If assistance needed, confirmed caregiver ready, willing and able to care for patient at discharge: Confirmed with: Living Arrangements Current Residence: Apartment Number of Floors 2 Number of Entry Steps: 5 or more Bed/Bath Levels: Both second floor Facility: Facility Name: Plan to Return: Lives with: Spouse/significant other Support Systems: Spouse/significant other Activities of Daily Living Ambulation: Independent Bathing/Dressing: Independent Elimination/Continence/Toileting : Independent Feeding: Independent Who Assists with Activities of Daily Living: Instrumental Activities of Daily Living Prescription Coverage: Yes Pharmacy Used: [facility] [place] Medication Management: Independent Transportation/Shopping: Independent Transportation Mode: Car Needs Assistance with Transportation at Discharge: No Meal Preparation: Independent Laundry/Cleaning: Independent Finances/Bill Paying: Independent Communication: Independent Types of Care Services/Equipment Utilized Care Services: Dialysis Type: Durable Medical Equipment: Patient's Goal/Discharge Plan Patient expects to be discharged to: home Discharge Planning Actions: No needs identified Patient's Choice Rights and [employer] and Collaborative Relationships Disclosed as Indicated for Post-Acute Care: Interdisciplinary Team Engagement: Social Work Referral for: Additional Information: Pt admitted for orthopnea, acute cholecystitis, RUQ pain. HX Tof. His pain has resolved, denies SOB, orthopnea. Diuresed with 2 doses of Lasix. Cardiology, gen surg following. Met with pt at bedside, introduced self and role. Pt resides with his girlfriend, is ind with ADLs, drives. States he has healthcare ins - copy of insurance cards given to bed control to be entered into system. States he is in the process of getting set up with a PCP in [place] and plans to follow up with cardiology - it's all catching up with me now. Anticipate home, no needs. Sherine Baker RN Problem: Pain - Adult Goal: Verbalizes/displays adequate comfort level or baseline comfort level Outcome: Progressing Problem: Safety - Adult Goal: Free from fall injury Outcome: Progressing The patient is Moderately Stable - Low risk of patient condition declining or worsening The patient's goals for the shift include good night sleep The clinical goals for the shift include keep me safe Still having RUQ pain, but vastly improved. On exam does still have +Gaines. Tolerating CLD w/o issue, would like to advance. Two loose stools overnight, currently feels bloated but does not feel that it is constipation. - advance to FLD, if tolerating can go to regular - pain & bowel regimen available Gregory Baker MD Division of Hospitalist Medicine Inpatient Medical Services[place] documented in this encounter [facility] 05-25-2023 History of Presen t illness Narrative Spoke with patient about echo results. He has severe RV dysfunction, 4+ TR, possible severe pulmonic stenosis. He appears euvolemic on exam and feels well today. He's had 2 doses of Lasix 20 mg IV. He will likely need further imaging and repeat procedure/surgery. Given his young age, he should also establish with a transplant program as well. This would be best established at [facility] or [facility]. All questions answered. Will provide him low dose Lasix and Spironolactone to maintain euvolemia. 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 on 05/22/23 with right upper quadrant pain- concern for cholecystitis. Cardiology consulted due to elevated NT Pro BNP and cardiac clearance for possible surgical intervention. He was given Lasix 20 mg IV x1 dose. Today he reports he is feeling much better than before. He denies shortness of breath, chest pain, leg swelling, light-headedness, dizziness, and syncope. Assessment/Plan #Hx of tetrology of fallot s/p repair -Patient is warm and does appear mildly hypervolemic today, + JVD mid-neck -He is s/p Lasix 20 mg IV x1 dose, we will give one more dose today, monitor response, may need Lasix PO at time of discharge -Last labs show stable renal function, Na and K+ WNL, CTM with diuretic therapy -Repeat echocardiogram pending, suspected RV dysfunction per Dr. Cardona note -Has follow-up scheduled with [facility] on 06/12/2023 -Strict I&Os, daily standing weights, 1.8 g Na diet, and 64 oz fluid restriction Addendum: Discussed plan with Dr. Cardona. Medications: polyethylene glycol (PEG) 3350, 17 g, Oral, BID Infusion Medications: Physical Examination: Vitals: 05/23/23 1053 05/23/23 2007 05/24/23 0814 05/24/23 1119 BP: 116/81 108/75 108/57 108/64 BP Location: Left arm Left arm Left arm Left arm Patient Position: Sitting Sitting Lying Lying Pulse: 60 63 57 58 Resp: 17 18 16 16 Temp: 36.1 C (97 F) 36.6 C (97.8 F) 36 C (96.8 F) 36.4 C (97.6 F) TempSrc: Temporal Temporal Temporal Temporal SpO2: 98% 98% 98% 100% Weight: Height: Intake/Output Summary (Last 24 hours) at 05/24/2023 1131 Last data filed at 05/24/2023 1100 Gross per 24 hour Intake 200 ml Output -- Net 200 ml Wt Readings from Last 3 Encounters: 05/23/23 107 lb 9.4 oz (48.8 kg) Physical Exam Vitals reviewed. Constitutional: General: He is not in acute distress. Appearance: Normal appearance. He is not ill-appearing or toxic-appearing. HENT: Head: Normocephalic and atraumatic. Neck: Vascular: JVD present. Comments: Mid-neck Cardiovascular: Rate and Rhythm: Normal rate and regular rhythm. Heart sounds: Murmur heard. Musculoskeletal: Right lower leg: No edema. Left lower leg: No edema. Skin: General: Skin is warm and dry. Neurological: General: No focal deficit present. Mental Status: He is alert and oriented to person, place, and time. Psychiatric: Mood and Affect: Mood normal. Behavior: Behavior normal. Laboratory Tests: Recent Labs 05/23/235405/24/23219 NA 138 138 K 3.6 3.7 CL 107 103 CO2 22 25 BUN 20 20 CREATININE 0.92 0.94 Recent Labs 05/23/235405/24/23219 WBC 11.1* 10.1 HGB 13.6 13.7 HCT 41.1 40.7 MCV 90.4 89.8 PLT 112* 114* Recent Labs 05/23/2354 TROPONINI <0.012 Recent Labs 05/23/2354 BNP 1,390* No results for input(s): TRIG, HDL, LDLCALC, CHOL in the last 72 hours. No results found for: LDLCHOLESTER No results found for: TSH No results found for: EFBP, PLVEF, LVEFPHYS, LVEF2D, EF No results found for this or any previous visit. Other reports reviewed: Cardiac Tests: Telemetry findings reviewed: NSR No results found for: EFBP, PLVEF, LVEFPHYS, LVEF2D, EF Cornell Rowe PA-C Date Of Service 05/24/2023 Nutrition rescreen completed. Chart reviewed. Patient to be monitored and followed by the diet field operations technician. Images from the original note were not included. Hospitalist Progress Note 05/24/2023 [id number]: Please page [facility] Hospitalist for any issues. Admit Date: 05/22/2023 PCP: No primary care provider on file. Room#: E5517/D9-220 A Brief hospital course: Patient admitted 05/22/2023 for acute acalculus cholecystitis, later determined to be cholecystalgia. Chronic medical conditions include tetrology of Fallot s/p repair and PV replacement, bifasc/BRBB & LAFB, polysubstance abuse (tobacco, cocaine, heroin). Initially presented with progressively worsening acute on chronic/intermittent RUQ pain exacerbated by eating. Was transferred from OSH due to c/f cholecystitis in setting of heightened surgical risk due to TOF. On arrival, also reported orthopnea and had elevated JVD & BNP, raising c/f CHF. On surgery eval they were concerned that patient with cholecystalgia secondary to CHF, not cholecystitis, with need for addressing the cardiac issues rather than cholecystectomy; cardiology was consulted. PCT and CRP were both normal, which also argued strongly against cholecystitis so antibx were discontinued. On cardiology eval, patient with volume overload and c/f pulmonary insufficiency with RV dysfunction. Subjective: Interval History: No overnight issues. Has had complete resolution of pain, including when eating. We discussed findings, the cholecystalgia, the very low probability of ever having had cholecystitis, and the plan for today and into tomorrow. Dawit squires and father were present, all questions answered. Adult diet Regular 24HR INTAKE/OUTPUT: No intake or output data in the 24 hours ending 05/24/23 0811 Past Medical History: Past Medical History: Diagnosis Date Tetralogy of Fallot Objective: Vitals: BP 108/75 (BP Location: Left arm, Patient Position: Sitting) Pulse 63 Temp 36.6 C (97.8 F) (Temporal) Resp 18 Ht 5' 2 (1.575 m) Wt 107 lb 9.4 oz (48.8 kg) SpO2 98% BMI 19.68 kg/m Pulse Ox: SpO2 Av % Min: 98 % Max: 98 % General appearance: NAD. Cooperative with exam. Respiratory: CTAB. Normal effort. Cardiovascular: RRR. 4+ systolic murmur. No pedal edema. Abdomen: NBS. Soft. Nontender to deep palpation. Labs/Studies: The following labs and/or studies were reviewed by me as part of today's encounter. HEME: Recent Labs 05/23/23 0055 05/24/23 0220 WBC 11.1* 10.1 RBC 4.55 4.53 HGB 13.6 13.7 HCT 41.1 40.7 MCV 90.4 89.8 RDW 13.9 13.5 PLT 112* 114* CHEM: Recent Labs 05/23/23 0055 05/24/23 0220 NA 138 138 K 3.6 3.7 CL 107 103 CO2 22 25 BUN 20 20 CREATININE 0.92 0.94 EGFR >90.0 >90.0 GLUCOSE 80 80 CALCIUM 7.9* 8.4 ANIONGAP 9 10 CRP 7.8 -- LIVER: Recent Labs 05/23/235405/24/23 0220 AST 51* 44 ALT 47 41 BILITOT 1.3 1.2 ALKPHOS 67 63 ALBUMIN 3.9 2.5* PROT 6.5 6.7 COAG: Recent Labs 05/23/2354 PROTIME 12.3* INR 1.2* CARDIAC: Recent Labs 05/23/2354 TROPONINI <0.012 Lab Results Component Value Date BNP 1,390 (H) 05/23/2023 No results for input(s): POCGLU in the last 72 hours. No results for input(s): LACTATE in the last 72 hours. Lab Results Component Value Date PROCAL 0.02 05/23/2023 Urine Culture: No results found for this or any previous visit. Blood Culture: No results found for this or any previous visit. CXR portable: Prominence of the cardiac silhouette. Lesion within the left humeral neck and greater tuberosity. Imaging features are nonaggressive. If the patient has or develops corresponding focal pain, recommend further evaluation with dedicated left shoulder radiographs. US RUQ: Nonspecific edematous gallbladder wall thickening and mild pericholecystic edema. No gallstones. Negative sonographic Gaines's sign. Minimal right upper quadrant ascites. Currently Ordered Medications: Current Facility-Administered Medications: acetaminophen (Tylenol) tablet 650 mg, 650 mg, Oral, q6h PRN OR acetaminophen (Tylenol) suppository 650 mg, 650 mg, Rectal, q6h PRN, Verna Beckwith MD HYDROmorphone (Dilaudid) injection 0.5 mg, 0.5 mg, IntraVENous, q3h PRN, Gregory Baker MD melatonin tablet 3 mg, 3 mg, Oral, Nightly PRN, Verna Beckwith MD ondansetron ODT (Zofran-ODT) disintegrating tablet 4 mg, 4 mg, Oral, q8h PRN OR ondansetron (Zofran) injection 4 mg, 4 mg, IntraVENous, q6h PRN, Verna Beckwith MD oxyCODONE (Roxicodone) immediate release tablet 5 mg, 5 mg, Oral, q4h PRN, Gregory Baker MD piperacillin-tazobactam (Zosyn) IVPB 3,375 mg, 3,375 mg, IntraVENous, q8h, Verna Beckwith MD, Last Rate: 12.5 mL/hr at 05/24/23 0458, 3,375 mg at 05/24/23 0458 polyethylene glycol (PEG) 3350 (Miralax) packet 17 g, 17 g, Oral, BID, Gregory Baker MD Medical Decision Making: Acute, acute on chronic, unstable/uncontrolled chronic problems: Volume overload possibly pulmonary insufficiency with RV dysfunction Acute cholecystalgia suspected d/t #1 Thrombocytopenia, mild Elevated AST, mild Elevated INR, mild Leukocytosis, resolved Hypocalcemia, resolved Stable chronic problems affecting care, new non-acute diagnoses: Tetrology of Fallot s/p repair & PV replacement Bifascicular block/RBBB and LAFB Polysubstance abuse (tobacco, cocaine, heroin) As a result of the above findings & factors, the following mgmt was pursued: - cardiology following, appreciate recs - echo remains pending - one more dose today, still some evidence of volume excess, reassess tomorrow - may need daily/standing diuretic as home med - already scheduled to re-establish care with 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 on 06/12 - general surgery following, appreciate recs - no surgery planned, outpatient follow-up if there is any recurrence - recommend 4-days more days antbx with amox/clav - EXTREMELY low probability of cholecystitis given prior evaluation and unequivocally normal CRP & PCT this AM, dc'd pip/tazo earlier, however as per surgery rec will order amox/clav with final day 05/28; discussed this with patient, agrees to remain on antibx - pain control (acetaminophen PO prn, oxycodone PO prn, hydromorphone IV prn); bowel regimen - delirium precautions: increase activity - DVT prophylaxis: SCDs and encourage ambulation Data: (CAT1) Reviewed 3 or more notes from different specialty or health system (each=1). (CAT1) Reviewed 3 or more labs/studies previously ordered by me not previously counted (each=1, panels count as 1). (Note: labs/studies can only be counted once--either when ordered or when reviewed--not both.) Data: Moderate (3x CAT1 -OR- 1x CAT2 -OR- 1x CAT3) Complexity: Acute illness with systemic symptoms (MOD). Risk: Prescription drug/IVF/colloid was initiated, discontinued, adjusted; or reviewed with decision to maintain current orders (MOD). Advance Directive: Full Code Anticipated Discharge - Date - 05/25 - Location - Home - Pending the following - anya, cardio recs Gregory Baker MD [facility] MDM: Medium ([id number]) Department of Surgery - Progress Note PATIENT NAME: Omega Le : 1990 ATTENDING PHYSICIAN: Gregory Baker MD ADMIT DATE: 05/22/2023 TODAY'S DATE: 05/24/2023 SUBJECTIVE Patient doing well. Pain has resolved completely. States that it improved significantly after lasix yesterday. Does report that the pain had been worse with eating. Review of Systems Constitutional: Negative for chills and fever. HENT: Negative for ear discharge and facial swelling. Eyes: Negative for discharge and redness. Respiratory: Negative for shortness of breath and stridor. Cardiovascular: Negative for chest pain and palpitations. Gastrointestinal: Negative for abdominal distention and abdominal pain. Genitourinary: Negative for difficulty urinating and hematuria. Musculoskeletal: Negative for joint swelling and myalgias. Skin: Negative for color change and rash. Neurological: Negative for tremors and seizures. Psychiatric/Behavioral: Negative for agitation and behavioral problems. OBJECTIVE VITALS: BP 108/75 (BP Location: Left arm, Patient Position: Sitting) Pulse 63 Temp 36.6 C (97.8 F) (Temporal) Resp 18 Ht 1.575 m (5' 2 ) Wt 48.8 kg (107 lb 9.4 oz) SpO2 98% BMI 19.68 kg/m PHYSICAL EXAM: Physical Exam Constitutional: Appearance: He is not ill-appearing. HENT: Right Ear: External ear normal. Left Ear: External ear normal. Mouth/Throat: Pharynx: Oropharynx is clear. No oropharyngeal exudate. Eyes: Extraocular Movements: Extraocular movements intact. Pupils: Pupils are equal, round, and reactive to light. Cardiovascular: Rate and Rhythm: Normal rate and regular rhythm. Pulmonary: Effort: No respiratory distress. Breath sounds: No stridor. Abdominal: General: There is no distension. Tenderness: There is abdominal tenderness. Comments: Very minor pain in RUQ with deep palpation Musculoskeletal: General: No deformity or signs of injury. Cervical back: No rigidity or tenderness. Skin: Coloration: Skin is not jaundiced. Findings: No bruising. Neurological: Mental Status: He is alert. Sensory: No sensory deficit. Motor: No weakness. Psychiatric: Mood and Affect: Mood normal. Behavior: Behavior normal. Data Recent Labs 05/23/235405/24/23219 WBC 11.1* 10.1 HGB 13.6 13.7 HCT 41.1 40.7 PLT 112* 114* Recent Labs 05/23/235405/24/23219 NA 138 138 K 3.6 3.7 CL 107 103 CO2 22 25 BUN 20 20 CREATININE 0.92 0.94 GLUCOSE 80 80 Recent Labs 05/23/235405/24/23219 AST 51* 44 ALT 47 41 BILITOT 1.3 1.2 ALKPHOS 67 63 ASSESSMENT AND PLAN 32 y.o. male with concern for acalculous cholecystitis versus liver congestion from heart failure. He has improved on antibiotics and lasix. -Suspect symptoms were from liver congestion related to CHF; however, we cannot be completely sure since he has also been on antibiotics. Recommend 4 days of abx for treatment of cholecystitis. Ok to be discharged on Augmentin when leaving the hospital. -General surgery will signoff. He will follow up with us if he has abdominal pain with eating moving forward now that he will be on appropriate CHF medications. Associated attestation - Loretta Aguilera MD - 05/24/2023 10:43 AM EDT ~~~~~~~~~~~~~~~~~~~~~~~~~~~~~~~~ ~~~~~~~~~~~~~~~~~~~~~~~~~~~~~ ATTENDING ADDENDUM Patient Active Problem List Diagnosis RUQ pain I independently saw the above patient and reviewed the recent events, imaging, labs, vital signs; I performed a physical exam and ROS on the same date of service as above. My findings agree with the above note except for any details corrected below. A complete review of systems was obtained and is negative except as stated in HPI. 32M pmhx of ToF s/p repair as an infant, no follow up, previous cocaine and heroin abuse pw RUQ pain RUQ pain resolved Tolerating diet Leukocytosis resolved Afebrile ULT -nonspecific edematous gallbladder wall thickening and mild pericholecystic fluid, no sonographic Gaines signs, no gallstones, right upper quadrant ascites Problem list: Right upper quadrant pain ToF Management: Appreciate medical admission and management Diet Bowel regimen Recommend cardiology consultation and work-up - concern for congestive hepatopathy less likely acute acalculous cholecystitis Follow up outpatient PRN RUQ pain Thank you for this consultation and allowing us to participate in the management of your patient. Please contact me for any concerns or questions regarding the recommendations above. Level of Medical Decision Making: risk of morbidity from additional diagnostic testing or treatment due to RUQ pain []High [x]Moderate []Low Personally Reviewed/Independently interpreted patient's: [x]Epic notes []Radiology studies [x]Labs []EKG []Ordering tests []Other Discussed/ With: [x]Patient/Family []RN []Consultants []SW/TCC []Other I spent total time of 45 minutes reviewing previous notes, test results, and face to face with Omega Le discussing the diagnosis and importance of compliance with the treatment plan as well as documenting on the day of the visit. Time was spent, Reviewing medical record including recent tests and results Ordering prescription medications/tests and procedures Communicating results to the patient/family/caregiver Counseling/educating the patient/family/caregiver Documenting clinical information the patient's electronic record Coordination of care for the patient Performing a medical appropriate exam and evaluation Loretta Aguilera MD, FACS Division of Trauma Department of Surgery [facility] ~~~~~~~~~~~~~~~~~~~~~~~~~~~~~~~~ ~~~~~~~~~~~~~~~~~~~~~~~~~~~~~ This note may have been dictated using [id number] Edition 2.6 and/or [employer] Voice Recognition Feature. The document was proofread; however, unrecognized voice recognition cargo station worker errors may be present. documented in this encounter [facility] 05-24-2023 Note 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 on 05/22/23 with right upper quadrant pain- concern for cholecystitis. Cardiology consulted due to elevated NT Pro BNP and cardiac clearance for possible surgical intervention. He was given Lasix 20 mg IV x1 dose. Today he reports he is feeling much better than before. He denies shortness of breath, chest pain, leg swelling, light-headedness, dizziness, and syncope. Assessment/Plan #Hx of tetrology of fallot s/p repair -Patient is warm and does appear mildly hypervolemic today, + JVD mid-neck -He is s/p Lasix 20 mg IV x1 dose, we will give one more dose today, monitor response, may need Lasix PO at time of discharge -Last labs show stable renal function, Na and K+ WNL, CTM with diuretic therapy -Repeat echocardiogram pending, suspected RV dysfunction per Dr. Cardona note -Has follow-up scheduled with [facility] on 06/12/2023 -Strict I&Os, daily standing weights, 1.8 g Na diet, and 64 oz fluid restriction Addendum: Discussed plan with Dr. Cardona. Medications: polyethylene glycol (PEG) 3350, 17 g, Oral, BID Infusion Medications: Physical Examination: Vitals: 05/23/23 1053 05/23/23200605/24/23 0814 05/24/23 1119 BP: 116/81 108/75 108/57 108/64 BP Location: Left arm Left arm Left arm Left arm Patient Position: Sitting Sitting Lying Lying Pulse: 60 63 57 58 Resp: 17 18 16 16 Temp: 36.1 ?C (97 ?F) 36.6 ?C (97.8 ?F) 36 ?C (96.8 ?F) 36.4 ?C (97.6 ?F) TempSrc: Temporal Temporal Temporal Temporal SpO2: 98% 98% 98% 100% Weight: Height: Intake/Output Summary (Last 24 hours) at 05/24/2023 1131 Last data filed at 05/24/2023 1100 Gross per 24 hour Intake 200 ml Output -- Net 200 ml Wt Readings from Last 3 Encounters: 05/23/23 107 lb 9.4 oz (48.8 kg) Physical Exam Vitals reviewed. Constitutional: General: He is not in acute distress. Appearance: Normal appearance. He is not ill-appearing or toxic-appearing. HENT: Head: Normocephalic and atraumatic. Neck: Vascular: JVD present. Comments: Mid-neck Cardiovascular: Rate and Rhythm: Normal rate and regular rhythm. Heart sounds: Murmur heard. Musculoskeletal: Right lower leg: No edema. Left lower leg: No edema. Skin: General: Skin is warm and dry. Neurological: General: No focal deficit present. Mental Status: He is alert and oriented to person, place, and time. Psychiatric: Mood and Affect: Mood normal. Behavior: Behavior normal. Laboratory Tests: Recent Labs 05/23/235405/24/230 NA 138 138 K 3.6 3.7 CL 107 103 CO2 22 25 BUN 20 20 CREATININE 0.92 0.94 Recent Labs 05/23/235 05/24/23 0220 WBC 11.1* 10.1 HGB 13.6 13.7 HCT 41.1 40.7 MCV 90.4 89.8 PLT 112* 114* Recent Labs 05/23/23 0055 TROPONINI <0.012 Recent Labs 05/23/23 005 BNP 1,390* No results for input(s): TRIG, HDL, LDLCALC, CHOL in the last 72 hours. No results found for: LDLCHOLESTER No results found for: TSH No results found for: EFBP, PLVEF, LVEFPHYS, LVEF2D, EF No results found for this or any previous visit. Other reports reviewed: Cardiac Tests: Telemetry findings reviewed: NSR No results found for: EFBP, PLVEF, LVEFPHYS, LVEF2D, EF Cornell Rowe PA-C Date Of Service 05/24/2023 [facility] 05-24-2023 Note Hospitalist Progress Note 05/24/2023 [id number]: Please page [facility] Hospitalist for any issues. Admit Date: 05/22/2023 PCP: No primary care provider on file. Room#: Q5-523/E5-302 A Brief hospital course: Patient admitted 05/22/2023 for acute acalculus cholecystitis, later determined to be cholecystalgia. Chronic medical conditions include tetrology of Fallot s/p repair and PV replacement, bifasc/BRBB & LAFB, polysubstance abuse (tobacco, cocaine, heroin). Initially presented with progressively worsening acute on chronic/intermittent RUQ pain exacerbated by eating. Was transferred from OSH due to c/f cholecystitis in setting of heightened surgical risk due to TOF. On arrival, also reported orthopnea and had elevated JVD & BNP, raising c/f CHF. On surgery eval they were concerned that patient with cholecystalgia secondary to CHF, not cholecystitis, with need for addressing the cardiac issues rather than cholecystectomy; cardiology was consulted. PCT and CRP were both normal, which also argued strongly against cholecystitis so antibx were discontinued. On cardiology eval, patient with volume overload and c/f pulmonary insufficiency with RV dysfunction. Subjective: Interval History: No overnight issues. Has had complete resolution of pain, including when eating. We discussed findings, the cholecystalgia, the very low probability of ever having had cholecystitis, and the plan for today and into tomorrow. Fianc?e and father were present, all questions answered. Adult diet Regular 24HR INTAKE/OUTPUT: No intake or output data in the 24 hours ending 05/24/23 0811 Past Medical History: Past Medical History: Diagnosis Date Tetralogy of Fallot Objective: Vitals: BP 108/75 (BP Location: Left arm, Patient Position: Sitting) Pulse 63 Temp 36.6 ?C (97.8 ?F) (Temporal) Resp 18 Ht 5' 2 (1.575 m) Wt 107 lb 9.4 oz (48.8 kg) SpO2 98% BMI 19.68 kg/m? Pulse Ox: SpO2 Av % Min: 98 % Max: 98 % General appearance: NAD. Cooperative with exam. Respiratory: CTAB. Normal effort. Cardiovascular: RRR. 4+ systolic murmur. No pedal edema. Abdomen: NBS. Soft. Nontender to deep palpation. Labs/Studies: The following labs and/or studies were reviewed by me as part of today's encounter. HEME: Recent Labs 05/23/23 0055 08/27/23 0220 WBC 11.1* 10.1 RBC 4.55 4.53 HGB 13.6 13.7 HCT 41.1 40.7 MCV 90.4 89.8 RDW 13.9 13.5 PLT 112* 114* CHEM: Recent Labs 05/23/235405/24/23219 NA 138 138 K 3.6 3.7 CL 107 103 CO2 22 25 BUN 20 20 CREATININE 0.92 0.94 EGFR >90.0 >90.0 GLUCOSE 80 80 CALCIUM 7.9* 8.4 ANIONGAP 9 10 CRP 7.8 -- LIVER: Recent Labs 05/23/235405/24/23219 AST 51* 44 ALT 47 41 BILITOT 1.3 1.2 ALKPHOS 67 63 ALBUMIN 3.9 2.5* PROT 6.5 6.7 COAG: Recent Labs 05/23/2354 PROTIME 12.3* INR 1.2* CARDIAC: Recent Labs 05/23/2354 TROPONINI <0.012 Lab Results Component Value Date BNP 1,390 (H) 05/23/2023 No results for input(s): POCGLU in the last 72 hours. No results for input(s): LACTATE in the last 72 hours. Lab Results Component Value Date PROCAL 0.02 05/23/2023 Urine Culture: No results found for this or any previous visit. Blood Culture: No results found for this or any previous visit. CXR portable: Prominence of the cardiac silhouette. Lesion within the left humeral neck and greater tuberosity. Imaging features are nonaggressive. If the patient has or develops corresponding focal pain, recommend further evaluation with dedicated left shoulder radiographs. US RUQ: Nonspecific edematous gallbladder wall thickening and mild pericholecystic edema. No gallstones. Negative sonographic Gaines's sign. Minimal right upper quadrant ascites. Currently Ordered Medications: Current Facility-Administered Medications: acetaminophen (Tylenol) tablet 650 mg, 650 mg, Oral, q6h PRN OR acetaminophen (Tylenol) suppository 650 mg, 650 mg, Rectal, q6h PRN, Verna Beckwith MD HYDROmorphone (Dilaudid) injection 0.5 mg, 0.5 mg, IntraVENous, q3h PRN, Gregory Baker MD melatonin tablet 3 mg, 3 mg, Oral, Nightly PRN, Verna Beckwith MD ondansetron ODT (Zofran-ODT) disintegrating tablet 4 mg, 4 mg, Oral, q8h PRN OR ondansetron (Zofran) injection 4 mg, 4 mg, IntraVENous, q6h PRN, Verna Beckwith MD oxyCODONE (Roxicodone) immediate release tablet 5 mg, 5 mg, Oral, q4h PRN, Gregory Baker MD piperacillin-tazobactam (Zosyn) IVPB 3,375 mg, 3,375 mg, IntraVENous, q8h, Verna Beckwith MD, Last Rate: 12.5 mL/hr at 05/24/23 0458, 3,375 mg at 05/24/23 0458 polyethylene glycol (PEG) 3350 (Miralax) packet 17 g, 17 g, Oral, BID, Gregory Baker MD Medical Decision Making: Acute, acute on chronic, unstable/uncontrolled chronic problems: Volume overload 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 [facility] 05-23-2023 Plan of care note Problem: Pain - Adult Goal: Verbalizes/displays adequate comfort level or baseline comfort level Outcome: Progressing Problem: Safety - Adult Goal: Free from fall injury Outcome: Progressing The patient is Moderately Stable - Low risk of patient condition declining or worsening The patient's goals for the shift include good night sleep The clinical goals for the shift include keep me safe [facility] 05-23-2023 Consult note Associated Order (s): IP CONSULT TO CARDIOLOGY [facility] [place] [facility]iology Consult Note Reason for Consult/Chief Complaint: Hx of TOF. Cardiac clearance for possible need for surgery in the future. Referring provider: Dr. Baker Established well surveying engineer: None (Has appointment with [facility] on 06/12 with congenital cardiology) History of Present Illness: Omega Le is a 32 y.o. male with hx of TOF presenting for RUQ pain. He has hx of TOF (s/p repair with PV replacement), he is unsure about his other surgeries but reports he had three in total and last one was when he was 11 years old and lost to follow-up since he was 13 years of age. He denies SOB with exertion but reports orthopnea of the last 6 months to 1 year. He denies chest pain. He presents for 3 day hx of progressively worsening RUQ pain that was exacerbated by eating. He had peritoneal signs and was directed to the ED. Imaging showed acalculous cholecystitis and currently its being treated conservatively with antibiotics and possible plan for surgery as outpatient. Assessment/Plan Hx of TOF Elevated pro BNP. Exam JVD positive mild volume overload/elevated right sided filling pressures. - Will give 1x lasix 20mg once and re-assess tomorrow. He will likely need to be on standing lasix pill daily depending on echocardiogram findings. - Echocardiogram ordered. Based on murmur and history of TOF repairs , suspect PI/RV issues. - Will need to follow-up with congenital well surveying engineer on 06/12. He used to see Dr. Saucedo at [facility]. Preop risk stratification He denies any CP on exertion. ECG showing bifascicular block/RBBB and LAFB. - Will need echocardiogram to further risk stratify him due to concern for RV dilation and RV failure. I, Dr. Cardona, saw and evaluated the patient. I personally obtained the camargo and critical portions of the history and physical exam. I reviewed the chart, the fellow's documentation, and discussed the patient with the fellow. I agree with the fellow's medical decision making and have edited the note to reflect my clinical findings and my assessment and plan. Medications: furosemide, 20 mg, IntraVENous, Once piperacillin-tazobactam, 3,375 mg, IntraVENous, q8h polyethylene glycol (PEG) 3350, 17 g, Oral, BID Infusion Medications: Physical Examination: Vitals: 05/23/23 0316 05/23/23 0431 05/23/23 0829 05/23/23 1053 BP: 107/76 112/73 108/68 116/81 BP Location: Left arm Left arm Left arm Patient Position: Sitting Lying Sitting Pulse: 61 60 61 60 Resp: 16 18 17 17 Temp: 36.2 C (97.1 F) 36.5 C (97.7 F) 36.1 C (97 F) TempSrc: Temporal Temporal Temporal SpO2: 100% 98% 98% 98% Weight: 107 lb 9.4 oz (48.8 kg) Height: 5' 2 (1.575 m) No intake or output data in the 24 hours ending 05/23/23 1426 Wt Readings from Last 3 Encounters: 05/23/23 107 lb 9.4 oz (48.8 kg) Physical Exam Constitutional: General: He is not in acute distress. HENT: Head: Normocephalic and atraumatic. Right Ear: External ear normal. Left Ear: External ear normal. Mouth/Throat: Mouth: Mucous membranes are moist. Eyes: General: No scleral icterus. Conjunctiva/sclera: Conjunctivae normal. Neck: Thyroid: No thyromegaly. Vascular: JVD present. Cardiovascular: Rate and Rhythm: Regular rhythm. Chest Wall: PMI is not displaced. Heart sounds: Murmur heard. No S3 or S4 sounds. Pulmonary: Effort: Pulmonary effort is normal. Breath sounds: Normal breath sounds. No wheezing or rales. Abdominal: General: Bowel sounds are normal. There is no distension. Palpations: Abdomen is soft. Tenderness: There is no abdominal tenderness. Musculoskeletal: General: No swelling. Cervical back: Neck supple. Right lower leg: No edema. Left lower leg: No edema. Skin: General: Skin is warm and dry. Findings: No rash. Nails: There is no clubbing. Neurological: General: No focal deficit present. Mental Status: He is alert and oriented to person, place, and time. Gait: Gait is intact. Psychiatric: Mood and Affect: Mood normal. Thought Content: Thought content normal. Laboratory Tests: Recent Labs 05/23/2354 NA 138 K 3.6 CL 107 CO2 22 BUN 20 CREATININE 0.92 EGFR >90.0 Recent Labs 05/23/2354 TROPONINI <0.012 Recent Labs 05/23/2354 WBC 11.1* HGB 13.6 HCT 41.1 MCV 90.4 PLT 112* No results found for: HGBA1C No results found for: TSH No results found for: CHOL No results found for: HDL No results found for: LDLCALC No results found for: TRIG No results found for: CHOLHDL No results found for: LDLCHOLESTER Recent Labs 08/26/23 0055 BNP 1,390* Recent Labs 05/23/23 0055 INR 1.2* Results from last 7 days Lab Units 05/23/23 0055 AST U/L 51* ALT U/L 47 No results found for: IRON, TIBC, FERRITIN Radiology: CXR: personally reviewed: Cardiac Tests Personally Reviewed: Last EKG 05/22/23 ECG 12-LEAD 05/23/2023 10:23 AM (Final) Impression Sinus rhythm RBBB and LAFB no previous ecg for comparison LVH WITH IVCD, LAD AND SECONDARY REPOL ABNRM Electronically Signed On 05-23-2023 10:23:05 EDT by Julian Luevano Signed by: Julian Luevano DO on 05/23/2023 10:23 AM Telemetry findings: NSR Reports reviewed: Last Echo No results found for this or any previous visit. Last Cath No results found for this or any previous visit. Last Stress Test No results found for this or any previous visit. Last EP study No results found for this or any previous visit. No results found for: EFBP, PLVEF, LVEFPHYS, LVEF2D, EF Zachary Curry MD DATE of SERVICE: 05/23/2023 [facility]23-[facility]23 Consult note Associated Order (s): IP CONSULT TO CARDIOLOGY [facility] [place] [facility]Electrophysiology Consult Note Reason for Consult/Chief Complaint: Hx of TOF. Cardiac clearance for possible need for surgery in the future. Referring provider: Dr. Baker Established well surveying engineer: None (Has appointment with [facility] on [facility]/12 with congenital cardiology) History of Present Illness: Omega Le is a 32 y.o. male with hx of TOF presenting for RUQ pain. He has hx of TOF (s/p repair with PV replacement), he is unsure about his other surgeries but reports he had three in total and last one was when he was 11 years old and lost to follow-up since he was 13 years of age. He denies SOB with exertion but reports orthopnea of the last 6 months to 1 year. He denies chest pain. He presents for 3 day hx of progressively worsening RUQ pain that was exacerbated by eating. He had peritoneal signs and was directed to the ED. Imaging showed acalculous cholecystitis and currently its being treated conservatively with antibiotics and possible plan for surgery as outpatient. Assessment/Plan Hx of TOF Elevated pro BNP. Exam JVD positive mild volume overload/elevated right sided filling pressures. - Will give 1x lasix 20mg once and re-assess tomorrow. He will likely need to be on standing lasix pill daily depending on echocardiogram findings. - Echocardiogram ordered. Based on murmur and history of TOF repairs , suspect PI/RV issues. - Will need to follow-up with congenital well surveying engineer on 06/12. He used to see Dr. Saucedo at [facility]. Preop risk stratification He denies any CP on exertion. ECG showing bifascicular block/RBBB and LAFB. - Will need echocardiogram to further risk stratify him due to concern for RV dilation and RV failure. I, Dr. Cardona, saw and evaluated the patient. I personally obtained the camargo and critical portions of the history and physical exam. I reviewed the chart, the fellow's documentation, and discussed the patient with the fellow. I agree with the fellow's medical decision making and have edited the note to reflect my clinical findings and my assessment and plan. Medications: furosemide, 20 mg, IntraVENous, Once piperacillin-tazobactam, 3,375 mg, IntraVENous, q8h polyethylene glycol (PEG) 3350, 17 g, Oral, BID Infusion Medications: Physical Examination: Vitals: 05/23/23 0316 05/23/23 0431 05/23/23 0829 05/23/23 1053 BP: 107/76 112/73 108/68 116/81 BP Location: Left arm Left arm Left arm Patient Position: Sitting Lying Sitting Pulse: 61 60 61 60 Resp: 16 18 17 17 Temp: 36.2 C (97.1 F) 36.5 C (97.7 F) 36.1 C (97 F) TempSrc: Temporal Temporal Temporal SpO2: 100% 98% 98% 98% Weight: 107 lb 9.4 oz (48.8 kg) Height: 5' 2 (1.575 m) No intake or output data in the 24 hours ending 05/23/23 1426 Wt Readings from Last 3 Encounters: 05/23/23 107 lb 9.4 oz (48.8 kg) Physical Exam Constitutional: General: He is not in acute distress. HENT: Head: Normocephalic and atraumatic. Right Ear: External ear normal. Left Ear: External ear normal. Mouth/Throat: Mouth: Mucous membranes are moist. Eyes: General: No scleral icterus. Conjunctiva/sclera: Conjunctivae normal. Neck: Thyroid: No thyromegaly. Vascular: JVD present. Cardiovascular: Rate and Rhythm: Regular rhythm. Chest Wall: PMI is not displaced. Heart sounds: Murmur heard. No S3 or S4 sounds. Pulmonary: Effort: Pulmonary effort is normal. Breath sounds: Normal breath sounds. No wheezing or rales. Abdominal: General: Bowel sounds are normal. There is no distension. Palpations: Abdomen is soft. Tenderness: There is no abdominal tenderness. Musculoskeletal: General: No swelling. Cervical back: Neck supple. Right lower leg: No edema. Left lower leg: No edema. Skin: General: Skin is warm and dry. Findings: No rash. Nails: There is no clubbing. Neurological: General: No focal deficit present. Mental Status: He is alert and oriented to person, place, and time. Gait: Gait is intact. Psychiatric: Mood and Affect: Mood normal. Thought Content: Thought content normal. Laboratory Tests: Recent Labs 05/23/2354 NA 138 K 3.6 CL 107 CO2 22 BUN 20 CREATININE 0.92 EGFR >90.0 Recent Labs 05/23/2354 TROPONINI <0.012 Recent Labs 05/23/2354 WBC 11.1* HGB 13.6 HCT 41.1 MCV 90.4 PLT 112* No results found for: HGBA1C No results found for: TSH No results found for: CHOL No results found for: HDL No results found for: LDLCALC No results found for: TRIG No results found for: CHOLHDL No results found for: LDLCHOLESTER Recent Labs 05/23/2354 BNP 1,390* Recent Labs 05/23/2354 INR 1.2* Results from last 7 days Lab Units 05/23/23 005 AST U/L 51* ALT U/L 47 No results found for: IRON, TIBC, FERRITIN Radiology: CXR: personally reviewed: Cardiac Tests Personally Reviewed: Last EKG 05/22/23 ECG 12-LEAD 05/23/2023 10:23 AM (Final) Impression Sinus rhythm RBBB and LAFB no previous ecg for comparison LVH WITH IVCD, LAD AND SECONDARY REPOL ABNRM Electronically Signed On 05-23-2023 10:23:05 EDT by Julian Luevano Signed by: Julian Luevano DO on 05/23/2023 10:23 AM Telemetry findings: NSR Reports reviewed: Last Echo No results found for this or any previous visit. Last Cath No results found for this or any previous visit. Last Stress Test No results found for this or any previous visit. Last EP study No results found for this or any previous visit. No results found for: EFBP, PLVEF, LVEFPHYS, LVEF2D, EF Zachary Curry MD DATE of SERVICE: 05/23/2023 Associated Order(s): IP CONSULT TO GENERAL SURGERY Department of General Surgery Surgical Service - ACS Consult 05/23/2023 PATIENT NAME: Omega Le DATE OF : 1990 CHIEF COMPLAINT: Chief Complaint Patient presents with Abdominal Pain Patient sent from [facility] for cholecystitis. 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 Patient states he has been having right upper quadrant abdominal pain for 3 days. Denies nausea or vomiting, no fever. Reason for Admission: acute cholecystitis ADMIT DATE: 05/22/2023 Reason for Consult: RUQ pain HISTORY OF PRESENT ILLNESS: Omega Le is a 32 y.o. male with significant past medical history of Tetralogy of Fallot status post multiple pediatric cardiac surgeries, tobacco abuse, prior cocaine/heroin abuse who presents as a transfer from [facility] with RUQ pain. General surgery consulted for evaluation and treatment. Patient states about 3 days ago, he had sudden onset right upper quadrant abdominal pain that has persisted until now. For much of his life, he had had similar pain that had come on without identifiable pattern or precipitating factors, but all prior episodes had resolved spontaneously after a much shorter duration and without intervention. He had not seen any physicians for those symptoms in the past. 1 day prior to onset of symptoms during this episode, he endorsed feeling very ill with subjective fevers, nausea, emesis, and feeling as if he was having a heart attack. He presented to [facility] ED that day with a negative work-up. Denies recent travel or sick contacts. States he is passing flatus and having nonbloody BMs. Was tolerating PO at home. Denies fevers, chills. States he normally has exertional chest pain and shortness of breath at baseline. States abd pain is worse when upright, active, and eating and abates when lying flat. Has not seen a well surveying engineer since age 13 (all care previously at [facility]). Denies prior abdominal surgeries and has never had a colonoscopy. Unaware of family history due to being adopted. Endorses smoking 1 pack/day since the age of 10, cocaine and heroin abuse in 2016 and most recent cocaine use 6 months ago, daily marijuana use. Denies EtOH use. Upon evaluation, patient is AF, HDS. Labs notable for WBC 11.1, Cr 0.92, Hb 13.6, Plt 112, AST 51, ALT 47, TB 1.3, DB 0, INR 1.2, trop wnl. ECG SR. RUQ US shows nonspecific edematous GB wall thickening and mild pericholecystic edema, no stones, negative Gaines's sign, CBD 2mm. Past Medical History Past Medical History: Diagnosis Date Tetralogy of Fallot Past Surgical History No past surgical history on file. Medications Prior to Admission: No current facility-administered medications for this encounter. No current outpatient medications on file. Allergies: Patient has no known allergies. Social History Social History Socioeconomic History Marital status: Single Tobacco Use Smoking status: Every Day Types: Cigarettes Substance and Sexual Activity Alcohol use: Not Currently Drug use: Yes Types: Marijuana Family History No family history on file. REVIEW OF SYSTEMS: Review of Systems Constitutional: Negative for chills and fever. HENT: Negative for ear pain and trouble swallowing. Eyes: Negative for pain and discharge. Respiratory: Positive for chest tightness and shortness of breath. Cardiovascular: Negative for chest pain and palpitations. Gastrointestinal: Positive for abdominal distention and abdominal pain. Negative for blood in stool, constipation, diarrhea, nausea and vomiting. Endocrine: Negative for cold intolerance and heat intolerance. Genitourinary: Negative for flank pain and hematuria. Musculoskeletal: Negative for arthralgias and myalgias. Skin: Negative for pallor and wound. Neurological: Negative for speech difficulty and headaches. Psychiatric/Behavioral: Negative for agitation and confusion. PHYSICAL EXAM: Vitals: 05/23/23 0058 BP: 113/68 Pulse: 66 Resp: 16 Temp: 36.6 C (97.9 F) SpO2: 100% No intake/output data recorded. Physical Exam Constitutional: General: He is not in acute distress. HENT: Head: Normocephalic and atraumatic. Right Ear: External ear normal. Left Ear: External ear normal. Nose: Nose normal. No congestion. Mouth/Throat: Mouth: Mucous membranes are moist. Pharynx: Oropharynx is clear. Eyes: Extraocular Movements: Extraocular movements intact. Pupils: Pupils are equal, round, and reactive to light. Cardiovascular: Rate and Rhythm: Normal rate and regular rhythm. Pulses: Normal pulses. Pulmonary: Effort: Pulmonary effort is normal. No respiratory distress. Abdominal: General: There is distension. Palpations: Abdomen is soft. There is no mass. Tenderness: There is abdominal tenderness. There is no guarding or rebound. Hernia: No hernia is present. Musculoskeletal: General: No deformity or signs of injury. Normal range of motion. Cervical back: Normal range of motion and neck supple. Skin: General: Skin is warm and dry. Capillary Refill: Capillary refill takes less than 2 seconds. Neurological: General: No focal deficit present. Mental Status: He is alert and oriented to person, place, and time. DATA: CBC: Lab Results Component Value Date WBC 11.1 (H) 05/23/2023 RBC 4.55 05/23/2023 HGB 13.6 05/23/2023 HCT 41.1 05/23/2023 MCV 90.4 05/23/2023 MCH 29.9 05/23/2023 MCHC 33.1 05/23/2023 RDW 13.9 05/23/2023 PLT 112 (L) 05/23/2023 MPV 8.7 05/23/2023 BMP: Lab Results Component Value Date NA 138 05/23/2023 K 3.6 05/23/2023 CL 107 05/23/2023 CO2 22 05/23/2023 BUN 20 05/23/2023 CREATININE 0.92 05/23/2023 CALCIUM 7.9 (L) 05/23/2023 GLUCOSE 80 05/23/2023 Hepatic Function Panel: Lab Results Component Value Date ALKPHOS 67 05/23/2023 ALT 47 05/23/2023 AST 51 (H) 05/23/2023 PROT 6.5 05/23/2023 BILITOT 1.3 05/23/2023 BILIDIR 0.0 05/23/2023 PT/INR: Lab Results Component Value Date PROTIME 12.3 (H) 05/23/2023 INR 1.2 (H) 05/23/2023 Troponin: Lab Results Component Value Date TROPONINI <0.012 05/23/2023 LIPASE: No results found for: LIPASE Body mass index is 19.2 kg/m . IMAGING: All relevant imaging reviewed by surgery team US abdomen limited Result Date: 05/23/2023 Patient Name: OMEGA LE : 1990 Exam Date/Time: 05/23/2023 01:54 Procedure: US ABDOMEN LIMITED Ordering Provider: WEATHERS JAY Reason For Exam: Upper quadrant pain concern for cholecystitis, outside hospital ultrasound showed wall thickening and pericholecystic fluid ULTRASOUND ABDOMEN LIMITED CLINICAL INDICATION: Upper quadrant pain concern for cholecystitis, outside hospital ultrasound showed wall thickening and pericholecystic fluid TECHNIQUE: Ultrasound of the Right upper quadrant COMPARISON: No relevant prior study is available. FINDINGS: Pancreas: Imaged portion of the pancreas appears within normal limits. Liver: Liver is smooth in contour. No discrete lesion. Gallbladder: Marked gallbladder wall thickening. The gallbladder wall appears edematous. Thickness measures up to 8 mm. Mild pericholecystic fluid. No discrete gallstone. No abnormal gallbladder distention. Gaines's sign: Negative sonographic Gaines's sign. Bile ducts: Unremarkable Common bile duct: 2 mm Right kidney: No hydronephrosis. Right kidney is normal in contour. No calculus. No discrete renal lesion. Ascites: Minimal right upper quadrant ascites. Nonspecific edematous gallbladder wall thickening and mild pericholecystic edema. No gallstones.Negative sonographic Gaines's sign. Minimal right upper quadrant ascites. Report Dictated on Electronically Signed By: Terra Lobo MD Electronically Signed Date/Time: 05/23/2023 2:06 AM EDT XR chest 1 view Result Date: 05/23/2023 [facility] 1990 [id number] Exam Date/Time: 05/23/2023 01:01 Procedure: XR CHEST 1 VIEW Ordering Provider: WEATHERS JAY Reason For Exam: preop, hx of tetrology of fallot CHEST CLINICAL INDICATION: preop, hx of tetrology of fallot TECHNIQUE: AP portable chest COMPARISON: No relevant prior study. FINDINGS: SUPPORT DEVICES: None HEART AND MEDIASTINUM: Prominence of the cardiac silhouette. LUNGS AND PLEURA: No focal consolidation. No sizable pleural effusion . No pneumothorax is identified. OSSEOUS STRUCTURES: Chronic deformity of the left third rib. There is a subtle lucent lesion within the left humeral neck and greater tuberosity, measuring approximately 3.6 cm x 3.3 cm. This appears to have a narrow zone of transition. No cortical breakthrough or periosteal reaction. Lesion contains thin bony septations. This is suggestive of a benign lesion such as an intraosseous cyst, intraosseous lipoma, or hemangioma. Prominence of the cardiac silhouette. Lesion within the left humeral neck and greater tuberosity. Imaging features are nonaggressive. If the patient has or develops corresponding focal pain, recommend further evaluation with dedicated left shoulder radiographs. Report Dictated on Electronically Signed By: Terra Lobo MD Electronically Signed Date/Time: 05/23/2023 1:53 AM EDT ECG 12 lead Sinus rhythm RBBB and LAFB ASSESSMENT AND PLAN: This is a 32 y.o. male with h/o Tetralogy of Fallot and tobacco/cocaine/heroin abuse p/w RUQ pain likely d/t cholecystalgia 2/2 GB wall edema in setting of patient's chronic cardiac condition. Less likely acute cholecystitis at this time. - No acute surgical intervention - Pain control prn - Ok for diet from surgery standpoint - Recommend cardiology consult and perioperative risk stratification if patient were to need surgery at a later date - Recommend medical admission Discussed with attending, Dr. Willy VAZQUEZ MD General Surgery, PGY-3 #[id number] 05/23/2023 1:50 AM Associated attestation - Loretta Aguilera MD - 05/24/2023 10:41 AM EDT ~~~~~~~~~~~~~~~~~~~~~~~~~~~~~~~~ ~~~~~~~~~~~~~~~~~~~~~~~~~~~~~ ATTENDING ADDENDUM Patient Active Problem List Diagnosis RUQ pain I independently saw the above patient and reviewed the recent events, imaging, labs, vital signs; I performed a physical exam and ROS on the same date of service as above. My findings agree with the above note except for any details corrected below. A complete review of systems was obtained and is negative except as stated in HPI. 32M pmhx of ToF s/p repair as an infant, no follow up, previous cocaine and heroin abuse pw RUQ pain TTP RUQ ULT -nonspecific edematous gallbladder wall thickening and mild pericholecystic fluid, no sonographic Gaines signs, no gallstones, right upper quadrant ascites Problem list: Right upper quadrant pain ToF Management: Appreciate medical admission and management Okay for diet Recommend cardiology consultation and work-up - concern for congestive hepatopathy less likely acute acalculous cholecystitis Thank you for this consultation and allowing us to participate in the management of your patient. Please contact me for any concerns or questions regarding the recommendations above. Level of Medical Decision Making: risk of morbidity from additional diagnostic testing or treatment due to right upper quadrant pain []High [x]Moderate []Low Personally Reviewed/Independently interpreted patient's: [x]Epic notes [x]Radiology studies [x]Labs []EKG []Ordering tests []Other Discussed/ With: [x]Patient/Family []RN []Consultants []SW/TCC []Other I spent total time of 62 minutes reviewing previous notes, test results, and face to face with Omega Le discussing the diagnosis and importance of compliance with the treatment plan as well as documenting on the day of the visit. Time was spent, Reviewing medical record including recent tests and results Ordering prescription medications/tests and procedures Communicating results to the patient/family/caregiver Counseling/educating the patient/family/caregiver Documenting clinical information the patient's electronic record Coordination of care for the patient Performing a medical appropriate exam and evaluation Loretta Aguilera MD, FACS Division of Trauma Department of Surgery [facility] ~~~~~~~~~~~~~~~~~~~~~~~~~~~~~~~~ ~~~~~~~~~~~~~~~~~~~~~~~~~~~~~ This note may have been dictated using [id number] Edition 2.6 and/or [employer] Voice Recognition Feature. The document was proofread; however, unrecognized voice recognition cargo station worker errors may be present. documented in this encounter [facility] 05-23-2023 Plan of care note Still having RUQ pain, but vastly improved. On exam does still have +Gaines. Tolerating CLD w/o issue, would like to advance. Two loose stools overnight, currently feels bloated but does not feel that it is constipation. - advance to FLD, if tolerating can go to regular - pain & bowel regimen available Gregory Baker MD Division of Hospitalist Medicine Inpatient Medical Services[place] 05-23-2023 Note Attending History an d Physical Admit Date: 05/22/2023 PCP: No primary care provider on file. CHIEF COMPLAINT: RUQ pain Reason for Admission: acute cholecystitis History Obtained From: Patient HISTORY OF PRESENT ILLNESS: Omega is a 32 y.o. male with past medical history below who presents with chief complaint listed above. Was diagnosed with chest wall pain one month ago (04/01/23) at [facility], then on the day of ED presentation he went to [facility] for 3-days of progressively worsening RUQ pain that was exacerbated by eating. He had peritoneal signs and was directed to the ED. Went to [facility] ED where he reported several months of intermittent chest & years of intermittent abdominal pain. US was c/f acute cholecystitis, so he was transferred to [facility] ED. Imaging here with edematous gallbladder wall and negative sonographic Gaines's. Patient also complaining of orthopnea & CALDERÓN there was concern that he might be in decompensated CHF given his tetrology, with cholecystalgia due to congestion--with potential to resolve GB issues by treating his cardiac status without resorting to cholecystectomy. Was lost to cardiology follow-up and has not been seen since age 13, though he has an upcoming appt in May to reestablish care, so he will be admitted with cardiology & general surgery consults for further evaluation and management. Past Medical History: Past Medical History: Diagnosis Date Tetralogy of Fallot Past Surgical History: History reviewed. No pertinent surgical history. Social History: Social History Socioeconomic History Marital status: Single Spouse name: Not on file Number of children: Not on file Years of education: Not on file Highest education level: Not on file Occupational History Not on file Tobacco Use Smoking status: Every Day Packs/day: 1.50 Types: Cigarettes Smokeless tobacco: Never Vaping Use Vaping Use: Never used Substance and Sexual Activity Alcohol use: Not Currently Drug use: Yes Types: Marijuana Sexual activity: Yes Partners: Female control/protection: None Other Topics Concern Not on file Social History Narrative Not on file Social Determinants of Health Financial Resource Strain: Not on file Food Insecurity: Not on file Transportation Needs: No Transportation Needs (05/23/2023) PRAPARE - Transportation Lack of Transportation (Medical): No Lack of Transportation (Non-Medical): No Physical Activity: Not on file Stress: Not on file Social Connections: Not on file Intimate Partner Violence: Not At Risk (05/23/2023) Humiliation, Afraid, Rape, and Kick questionnaire Fear of Current or Ex-Partner: No Emotionally Abused: No Physically Abused: No Sexually Abused: No Housing Stability: Low Risk (05/23/2023) Housing Stability Vital Sign Unable to Pay for Housing in the Last Year: No Number of Places Lived in the Last Year: 1 Unstable Housing in the Last Year: No Family History: No family history on file. Medications Prior to Admission: No current facility-administered medications on file prior to encounter. No current outpatient medications on file prior to encounter. Allergies: No Known Allergies REVIEW OF SYSTEMS: See HPI. Vitals: BP 112/73 (BP Location: Left arm, Patient Position: Sitting) Pulse 60 Temp 36.2 ?C (97.1 ?F) (Temporal) Resp 18 Ht 5' 2 (1.575 m) Wt 107 lb 9.4 oz (48.8 kg) SpO2 98% BMI 19.68 kg/m? BMI Classification: Normal Weight (BMI 18.5-24.9) Pulse Ox: SpO2 Av.3 % Min: 98 % Max: 100 % Supplemental O2: PHYSICAL EXAM: General appearance: Appearance/dress appropriate to situation. NAD. Cooperative with exam. Fianc?e at bedside. HEENT: Atraumatic. PERRL. Conjunctiva/sclera clear. Bilateral plug earrings. Neck: Supple. Trachea midline. Moving neck w/o issue. Respiratory: CTAB. Normal effort. Cardiovascular: RRR. 4+ systolic murmur and clearly palpable pulse on anterior chest. No pedal edema. Abdomen: NBS. Soft. Moderately TTP to palpation RUQ, with +Gaines's. Integument: Examined skin was appropriately warm, with unremarkable turgor and color. Neurologic: Alert. Answering questions & following directions appropriately. LABS/STUDIES/REVIEW OF EXTERNAL RECORDS: The following labs and/or studies were reviewed by me as part of the admissions process. HEME: Recent Labs 05/23/2354 WBC 11.1* RBC 4.55 HGB 13.6 HCT 41.1 MCV 90.4 RDW 13.9 PLT 112* CHEM: Recent Labs 05/23/2354 NA 138 K 3.6 CL 107 CO2 22 BUN 20 CREATININE 0.92 EGFR >90.0 GLUCOSE 80 CALCIUM 7.9* ANIONGAP 9 LIVER: Recent Labs 05/23/2354 AST 51* ALT 47 BILITOT 1.3 ALKPHOS 67 ALBUMIN 3.9 PROT 6.5 COAG: Recent Labs 05/23/2354 PROTIME 12.3* INR 1.2* CARDIAC: Recent Labs 05/23/2354 TROPONINI <0.012 Encounter Date: 05/22/23 ECG 12 lead Result Value Heart Rate 61 QRSD Interval 193 QT Interval 51 (more content not included)... [facility] 05-23-2023 History and physical note Images from the original note were not included. Attending History and Physical Admit Date: 05/22/2023 PCP: No primary care provider on file. CHIEF COMPLAINT: RUQ pain Reason for Admission: acute cholecystitis History Obtained From: Patient HISTORY OF PRESENT ILLNESS: Omega is a 32 y.o. male with past medical history below who presents with chief complaint listed above. Was diagnosed with chest wall pain one month ago (04/01/23) at [facility], then on the day of ED presentation he went to [facility] for 3-days of progressively worsening RUQ pain that was exacerbated by eating. He had peritoneal signs and was directed to the ED. Went to [facility] ED where he reported several months of intermittent chest & years of intermittent abdominal pain. US was c/f acute cholecystitis, so he was transferred to [facility] ED. Imaging here with edematous gallbladder wall and negative sonographic Gaines's. Patient also complaining of orthopnea & CALDERÓN there was concern that he might be in decompensated CHF given his tetrology, with cholecystalgia due to congestion--with potential to resolve GB issues by treating his cardiac status without resorting to cholecystectomy. Was lost to cardiology follow-up and has not been seen since age 13, though he has an upcoming appt in May to reestablish care, so he will be admitted with cardiology & general surgery consults for further evaluation and management. Past Medical History: Past Medical History: Diagnosis Date Tetralogy of Fallot Past Surgical History: History reviewed. No pertinent surgical history. Social History: Social History Socioeconomic History Marital status: Single Spouse name: Not on file Number of children: Not on file Years of education: Not on file Highest education level: Not on file Occupational History Not on file Tobacco Use Smoking status: Every Day Packs/day: 1.50 Types: Cigarettes Smokeless tobacco: Never Vaping Use Vaping Use: Never used Substance and Sexual Activity Alcohol use: Not Currently Drug use: Yes Types: Marijuana Sexual activity: Yes Partners: Female control/protection: None Other Topics Concern Not on file Social History Narrative Not on file Social Determinants of Health Financial Resource Strain: Not on file Food Insecurity: Not on file Transportation Needs: No Transportation Needs (05/23/2023) PRAPARE - Transportation Lack of Transportation (Medical): No Lack of Transportation (Non-Medical): No Physical Activity: Not on file Stress: Not on file Social Connections: Not on file Intimate Partner Violence: Not At Risk (05/23/2023) Humiliation, Afraid, Rape, and Kick questionnaire Fear of Current or Ex-Partner: No Emotionally Abused: No Physically Abused: No Sexually Abused: No Housing Stability: Low Risk (05/23/2023) Housing Stability Vital Sign Unable to Pay for Housing in the Last Year: No Number of Places Lived in the Last Year: 1 Unstable Housing in the Last Year: No Family History: No family history on file. Medications Prior to Admission: No current facility-administered medications on file prior to encounter. No current outpatient medications on file prior to encounter. Allergies: No Known Allergies REVIEW OF SYSTEMS: See HPI. Vitals: BP 112/73 (BP Location: Left arm, Patient Position: Sitting) Pulse 60 Temp 36.2 C (97.1 F) (Temporal) Resp 18 Ht 5' 2 (1.575 m) Wt 107 lb 9.4 oz (48.8 kg) SpO2 98% BMI 19.68 kg/m BMI Classification: Normal Weight (BMI 18.5-24.9) Pulse Ox: SpO2 Av.3 % Min: 98 % Max: 100 % Supplemental O2: PHYSICAL EXAM: General appearance: Appearance/dress appropriate to situation. NAD. Cooperative with exam. Fianc e at bedside. HEENT: Atraumatic. PERRL. Conjunctiva/sclera clear. Bilateral plug earrings. Neck: Supple. Trachea midline. Moving neck w/o issue. Respiratory: CTAB. Normal effort. Cardiovascular: RRR. 4+ systolic murmur and clearly palpable pulse on anterior chest. No pedal edema. Abdomen: NBS. Soft. Moderately TTP to palpation RUQ, with +Gaines's. Integument: Examined skin was appropriately warm, with unremarkable turgor and color. Neurologic: Alert. Answering questions & following directions appropriately. LABS/STUDIES/REVIEW OF EXTERNAL RECORDS: The following labs and/or studies were reviewed by me as part of the admissions process. HEME: Recent Labs 05/23/2354 WBC 11.1* RBC 4.55 HGB 13.6 HCT 41.1 MCV 90.4 RDW 13.9 PLT 112* CHEM: Recent Labs 05/23/2354 NA 138 K 3.6 CL 107 CO2 22 BUN 20 CREATININE 0.92 EGFR >90.0 GLUCOSE 80 CALCIUM 7.9* ANIONGAP 9 LIVER: Recent Labs 05/23/2354 AST 51* ALT 47 BILITOT 1.3 ALKPHOS 67 ALBUMIN 3.9 PROT 6.5 COAG: Recent Labs 05/23/2354 PROTIME 12.3* INR 1.2* CARDIAC: Recent Labs 05/23/2354 TROPONINI <0.012 Encounter Date: 05/22/23 ECG 12 lead Result Value Heart Rate 61 QRSD Interval 193 QT Interval 513 QTC Interval 515 P Dows 0 QRS Dows -54 T Wave Dows 54 [place] Interval 163 Impression Sinus rhythm RBBB and LAFB CXR portable: Prominence of the cardiac silhouette. Lesion within the left humeral neck and greater tuberosity. Imaging features are nonaggressive. If the patient has or develops corresponding focal pain, recommend further evaluation with dedicated left shoulder radiographs. US RUQ: Nonspecific edematous gallbladder wall thickening and mild pericholecystic edema. No gallstones. Negative sonographic Gaines's sign. Minimal right upper quadrant ascites. Records reviewed from other sources: - Records from ED provider, Dr. Mccall , were reviewed. - Records from ED peoplesoft financials consultant, Dr. Vazquez, were reviewed. - Records from [facility], on date 04/01/23, were reviewed. - Records from [facility], on date 05/22/23, were reviewed. MEDICAL DECISION MAKING: Acute, acute on chronic, unstable/uncontrolled chronic problems: Acute cholecystalgia possibly d/t #2 Decompensated CHF? 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 Bifascicular block/RBBB and LAFB Polysubstance abuse (tobacco, cocaine, heroin) As a result of the above findings & factors, the following mgmt was pursued: - general surgery consulted, appreciate recs - hold-off on any surgical intervention for now, potentially outpatient / later date - okay for diet - await cardiology recs - pip/tazo (05/23-present) -- will check CRP & PCT, if wnl then this strongly argues against cholecystitis & supports cholecystalgia, would double-check with general surgery but likely okay to dc antibx at that point - pain control (acetaminophen PO prn, oxycodone PO prn, hydromorphone IV prn); bowel regimen - check BNP - cardiology consulted, appreciate recs - delirium precautions: increase activity - DVT prophylaxis: SCDs and encourage ambulation Data: (CAT1) Reviewed 3 or more labs and/or studies obtained by the ED (each=1, lab panels count as 1). (CAT1) Reviewed 1 notes from different specialty or health system (each=1). Data: Moderate (3x CAT1 -OR- 1x CAT2 -OR- 1x CAT3) Complexity: Acute or chronic illness or injury posing a threat to life or body function (HIGH). Risk: Admission to hospital-level care was considered or occurred (HIGH). Code status: Full Code Please forward a copy of this H&P to the patient's PCP. Thank you. Gregory Baker MD Division of Hospitalist Medicine Inpatient Medical Services/[facility] MDM: High ([id number]) [facility] 05-23-2023 History and physical note Images from the original note were not included. Attending History and Physical Admit Date: 05/22/2023 PCP: No primary care provider on file. CHIEF COMPLAINT: RUQ pain Reason for Admission: acute cholecystitis History Obtained From: Patient HISTORY OF PRESENT ILLNESS: Omega is a 32 y.o. male with past medical history below who presents with chief complaint listed above. Was diagnosed with chest wall pain one month ago (04/01/23) at [facility], then on the day of ED presentation he went to [facility] for 3-days of progressively worsening RUQ pain that was exacerbated by eating. He had peritoneal signs and was directed to the ED. Went to [facility] ED where he reported several months of intermittent chest & years of intermittent abdominal pain. US was c/f acute cholecystitis, so he was transferred to [facility] ED. Imaging here with edematous gallbladder wall and negative sonographic Gaines's. Patient also complaining of orthopnea & CALDERÓN there was concern that he might be in decompensated CHF given his tetrology, with cholecystalgia due to congestion--with potential to resolve GB issues by treating his cardiac status without resorting to cholecystectomy. Was lost to cardiology follow-up and has not been seen since age 13, though he has an upcoming appt in May to reestablish care, so he will be admitted with cardiology & general surgery consults for further evaluation and management. Past Medical History: Past Medical History: Diagnosis Date Tetralogy of Fallot Past Surgical History: History reviewed. No pertinent surgical history. Social History: Social History Socioeconomic History Marital status: Single Spouse name: Not on file Number of children: Not on file Years of education: Not on file Highest education level: Not on file Occupational History Not on file Tobacco Use Smoking status: Every Day Packs/day: 1.50 Types: Cigarettes Smokeless tobacco: Never Vaping Use Vaping Use: Never used Substance and Sexual Activity Alcohol use: Not Currently Drug use: Yes Types: Marijuana Sexual activity: Yes Partners: Female control/protection: None Other Topics Concern Not on file Social History Narrative Not on file Social Determinants of Health Financial Resource Strain: Not on file Food Insecurity: Not on file Transportation Needs: No Transportation Needs (05/23/2023) PRAPARE - Transportation Lack of Transportation (Medical): No Lack of Transportation (Non-Medical): No Physical Activity: Not on file Stress: Not on file Social Connections: Not on file Intimate Partner Violence: Not At Risk (05/23/2023) Humiliation, Afraid, Rape, and Kick questionnaire Fear of Current or Ex-Partner: No Emotionally Abused: No Physically Abused: No Sexually Abused: No Housing Stability: Low Risk (05/23/2023) Housing Stability Vital Sign Unable to Pay for Housing in the Last Year: No Number of Places Lived in the Last Year: 1 Unstable Housing in the Last Year: No Family History: No family history on file. Medications Prior to Admission: No current facility-administered medications on file prior to encounter. No current outpatient medications on file prior to encounter. Allergies: No Known Allergies REVIEW OF SYSTEMS: See HPI. Vitals: BP 112/73 (BP Location: Left arm, Patient Position: Sitting) Pulse 60 Temp 36.2 C (97.1 F) (Temporal) Resp 18 Ht 5' 2 (1.575 m) Wt 107 lb 9.4 oz (48.8 kg) SpO2 98% BMI 19.68 kg/m BMI Classification: Normal Weight (BMI 18.5-24.9) Pulse Ox: SpO2 Av.3 % Min: 98 % Max: 100 % Supplemental O2: PHYSICAL EXAM: General appearance: Appearance/dress appropriate to situation. NAD. Cooperative with exam. Fianc e at bedside. HEENT: Atraumatic. PERRL. Conjunctiva/sclera clear. Bilateral plug earrings. Neck: Supple. Trachea midline. Moving neck w/o issue. Respiratory: CTAB. Normal effort. Cardiovascular: RRR. 4+ systolic murmur and clearly palpable pulse on anterior chest. No pedal edema. Abdomen: NBS. Soft. Moderately TTP to palpation RUQ, with +Gaines's. Integument: Examined skin was appropriately warm, with unremarkable turgor and color. Neurologic: Alert. Answering questions & following directions appropriately. LABS/STUDIES/REVIEW OF EXTERNAL RECORDS: The following labs and/or studies were reviewed by me as part of the admissions process. HEME: Recent Labs 05/23/2354 WBC 11.1* RBC 4.55 HGB 13.6 HCT 41.1 MCV 90.4 RDW 13.9 PLT 112* CHEM: Recent Labs 05/23/2354 NA 138 K 3.6 CL 107 CO2 22 BUN 20 CREATININE 0.92 EGFR >90.0 GLUCOSE 80 CALCIUM 7.9* ANIONGAP 9 LIVER: Recent Labs 05/23/2354 AST 51* ALT 47 BILITOT 1.3 ALKPHOS 67 ALBUMIN 3.9 PROT 6.5 COAG: Recent Labs 05/23/2354 PROTIME 12.3* INR 1.2* CARDIAC: Recent Labs 05/23/2354 TROPONINI <0.012 Encounter Date: 05/22/23 ECG 12 lead Result Value Heart Rate 61 QRSD Interval 193 QT Interval 513 QTC Interval 515 P Dows 0 QRS Dows -54 T Wave Dows 54 [place] Interval 163 Impression Sinus rhythm RBBB and LAFB CXR portable: Prominence of the cardiac silhouette. Lesion within the left humeral neck and greater tuberosity. Imaging features are nonaggressive. If the patient has or develops corresponding focal pain, recommend further evaluation with dedicated left shoulder radiographs. US RUQ: Nonspecific edematous gallbladder wall thickening and mild pericholecystic edema. No gallstones. Negative sonographic Gaines's sign. Minimal right upper quadrant ascites. Records reviewed from other sources: - Records from ED provider, Dr. Mccall , were reviewed. - Records from ED peoplesoft financials consultant, Dr. Vazquez, were reviewed. - Records from [facility], on date 04/01/23, were reviewed. - Records from [facility], on date 05/22/23, were reviewed. MEDICAL DECISION MAKING: Acute, acute on chronic, unstable/uncontrolled chronic problems: Acute cholecystalgia possibly d/t #2 Decompensated CHF? 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 Bifascicular block/RBBB and LAFB Polysubstance abuse (tobacco, cocaine, heroin) As a result of the above findings & factors, the following mgmt was pursued: - general surgery consulted, appreciate recs - hold-off on any surgical intervention for now, potentially outpatient / later date - okay for diet - await cardiology recs - pip/tazo (05/23-present) -- will check CRP & PCT, if wnl then this strongly argues against cholecystitis & supports cholecystalgia, would double-check with general surgery but likely okay to dc antibx at that point - pain control (acetaminophen PO prn, oxycodone PO prn, hydromorphone IV prn); bowel regimen - check BNP - cardiology consulted, appreciate recs - delirium precautions: increase activity - DVT prophylaxis: SCDs and encourage ambulation Data: (CAT1) Reviewed 3 or more labs and/or studies obtained by the ED (each=1, lab panels count as 1). (CAT1) Reviewed 1 notes from different specialty or health system (each=1). Data: Moderate (3x CAT1 -OR- 1x CAT2 -OR- 1x CAT3) Complexity: Acute or chronic illness or injury posing a threat to life or body function (HIGH). Risk: Admission to hospital-level care was considered or occurred (HIGH). Code status: Full Code Please forward a copy of this H&P to the patient's PCP. Thank you. Gregory Baker MD Division of Hospitalist Medicine Inpatient Medical Services/[facility] MDM: High ([id number]) documented in this encounter [facility] 05-23-2023 Emergency department Note Report given to Jenniffer Lopez RN 05/23/23 0332 [facility] 05-23-2023 Emergency department Note Report given to Jenniffer Lopez RN 05/23/23 0332 EMERGENCY DEPARTMENT ENCOUNTER Pt Name: Omega Le Birthdate 1990 Date of evaluation: 05/22/2023 ED Provider: Karthikeyan Mccall MD CHIEF COMPLAINT Chief Complaint Patient presents with Abdominal Pain Patient sent from [facility] for cholecystitis. 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 Patient states he has been having right upper quadrant abdominal pain for 3 days. Denies nausea or vomiting, no fever. HISTORY OF PRESENT ILLNESS (Location/Symptom, Timing/Onset, Context/Setting, Quality, Duration, Modifying Factors, Severity) Note limiting factors. I wore appropriate PPE for the entirety of this encounter. HPI Omega Le is a 32 y.o. male who presents to the emergency department as a transfer from [facility] emergency department with concern for acute cholecystitis. Patient has a complicated cardiac history of tetralogy of Fallot who follows with [facility] as a child had 3 repairs surgically most recent at the age of 11. He has been having 1 week of on and off symptoms of orthopnea and some shortness of breath on exertion. He does not currently follow with cardiology. Has no PCP. He also saw outside hospital emergency department for shortness of breath and received CT chest abdomen pelvis which showed no significant abnormality. He then developed for the past 2 to 3 days right upper quadrant pain worse after meals and was seen again in [facility] emergency department today and had an ultrasound which showed anterior wall thickening of 7 mm and pericholecystic fluid. Patient was sent over to our emergency department for further evaluation is enough cardiology in house and would like cardiology evaluation prior to any possible surgical intervention given his complicated cardiac history. Nursing Notes were reviewed. Limitations to history: None Outside historians: Outside hospital REVIEW OF SYSTEMS Review of Systems Constitutional: Positive for appetite change. Respiratory: Positive for shortness of breath. Gastrointestinal: Positive for abdominal pain. All other systems reviewed and are negative. Pertinent positives and negatives as per HPI. PAST MEDICAL HISTORY Past Medical History: Diagnosis Date Tetralogy of Fallot SURGICAL HISTORY History reviewed. No pertinent surgical history. CURRENT MEDICATIONS Previous Medications No medications on file ALLERGIES Patient has no known allergies. FAMILY HISTORY No family history on file. SOCIAL HISTORY Social History Socioeconomic History Marital status: Single Tobacco Use Smoking status: Every Day Types: Cigarettes Substance and Sexual Activity Alcohol use: Not Currently Drug use: Yes Types: Marijuana SCREENINGS Mitzy Coma Scale Best Eye Response: Spontaneous Best Verbal Response: Oriented Best Motor Response: Follows commands Mitzy Coma Scale Score: 15 PHYSICAL EXAM Physical Exam Constitutional: Appearance: He is not toxic-appearing or diaphoretic. HENT: Head: Normocephalic and atraumatic. Mouth/Throat: Mouth: Mucous membranes are moist. Pharynx: Oropharynx is clear. Eyes: Extraocular Movements: Extraocular movements intact. Pupils: Pupils are equal, round, and reactive to light. Cardiovascular: Rate and Rhythm: Normal rate and regular rhythm. Heart sounds: Murmur heard. Pulmonary: Effort: Pulmonary effort is normal. Breath sounds: Normal breath sounds. Abdominal: General: There is no distension. Tenderness: There is abdominal tenderness in the right upper quadrant. There is no guarding or rebound. Positive signs include Gaines's sign. Negative signs include McBurney's sign. Hernia: No hernia is present. Neurological: Mental Status: He is alert and oriented to person, place, and time. Motor: No weakness. Psychiatric: Mood and Affect: Mood normal. Behavior: Behavior normal. DIAGNOSTIC RESULTS RADIOLOGY (Per Emergency Physician): Interpretation per the Radiologist below, if available at the time of this note: US abdomen limited Final Result Nonspecific edematous gallbladder wall thickening and mild pericholecystic edema. No gallstones.Negative sonographic Gaines's sign. Minimal right upper quadrant ascites. Report Dictated on Electronically Signed By: Terra Lobo MD Electronically Signed Date/Time: 05/23/2023 2:06 AM EDT XR chest 1 view Final Result Prominence of the cardiac silhouette. Lesion within the left humeral neck and greater tuberosity. Imaging features are nonaggressive. If the patient has or develops corresponding focal pain, recommend further evaluation with dedicated left shoulder radiographs. Report Dictated on Electronically Signed By: Terra Lobo MD Electronically Signed Date/Time: 05/23/2023 1:53 AM EDT LABS: Labs Reviewed BASIC METABOLIC PANEL - Abnormal Result Value SODIUM 138 POTASSIUM 3.6 CHLORIDE 107 CARBON DIOXIDE 22 UREA NITROGEN 20 CREATININE 0.92 GLUCOSE 80 CALCIUM 7.9 (*) ANION GAP 9 eGFR >90.0 CBC WITH AUTO DIFFERENTIAL - Abnormal Auto WBC 11.1 (*) RBC 4.55 Hemoglobin 13.6 Hematocrit 41.1 MCV 90.4 MCH 29.9 MCHC 33.1 RDW 13.9 Platelets 112 (*) MPV 8.7 nRBC 0.1 Neutrophils Relative 62.6 Lymphocytes Relative 21.0 Monocytes Relative 8.2 Eosinophils Relative 7.7 (*) Basophils Relative 0.5 Neutrophils Absolute 6.9 Lymphocytes Absolute 2.3 Monocytes Absolute 0.9 (*) Eosinophils Absolute 0.9 (*) Basophils Absolute 0.1 HEPATIC FUNCTION PANEL - Abnormal BILIRUBIN, TOTAL 1.3 BILIRUBIN, DIRECT 0.0 ALKALINE PHOSPHATASE 67 AST (SGOT) 51 (*) ALT 47 ALBUMIN 3.9 TOTAL PROTEIN 6.5 PROTHROMBIN TIME - Abnormal PROTHROMBIN TIME 12.3 (*) INR 1.2 (*) TROPONIN I - Normal TROPONIN I <0.012 Narrative: Patients with high levels of Biotin oral intake (ie >5 mg/day) may have falsely decreased Troponin levels. BLOOD TYPE AND SCREEN GEL ABO Grouping A Antibody Screen NEG Rh Type POS CONFIRMATORY ABO/RH ABO Grouping A Rh Type POS All other labs were within normal range or not returned as of this dictation. EMERGENCY DEPARTMENT COURSE and DIFFERENTIAL DIAGNOSIS/MDM: Vitals: Vitals: 05/23/23 0035 05/23/23 0058 05/23/23 0316 BP: 113/78 113/68 107/76 Pulse: 57 66 61 Resp: 16 16 16 Temp: 36.6 C (97.9 F) TempSrc: Oral SpO2: 99% 100% 100% Weight: 47.6 kg (105 lb) Height: 1.575 m (5' 2 ) The patient presented with a chief complaint of right upper quadrant abdominal pain with outside ultrasound reviewed which showed evidence of cholecystitis a calculus. Repeat ultrasound again shows 7.7 mm anterior wall thickening pericholecystic fluid. He does have some symptoms of heart failure. Chest x-ray not show any pulmonary edema does not appear volume overloaded but with his significant cardiac history is possible he is having congestive heart failure in this setting. 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 Patient was discussed with general surgery admitting hospitalist and general surgery believes this may be related to congestion from congestive heart failure and this may not need surgical intervention. Patient already received Zosyn antibiotics discussed admitting hospitalist will continue antibiotics with surgical consultation for possible cholecystitis and further evaluation from cardiology was Tetralogy of Fallot and potential preop clearance. Patient admitted. Diagnoses as of 05/23/23 0357 RUQ pain Hx of tetralogy of Fallot repair Orthopnea External records reviewed: Outside emergency department ultrasound and lab work showing leukocytosis and signs of cholecystitis. Diagnostics interpreted by me: EKG showing right bundle block and left anterior fascicular block with abnormal T waves no clear ischemic changes no previous for comparison. Ultrasound gallbladder shows wall thickening and pericholecystic fluid concerning for cholecystitis Discussions with other clinicians: General surgery admitting hospitalist Chronic conditions impacting care: Previous Tetralogy of Fallot repair Social determinants of health affecting care: No PCP ED Medications managed: Pain was well controlled did not require any further pain control and already received Zosyn Prescription drugs considered: Antibiotics pain medications PROCEDURES: Unless otherwise noted below, none Procedures FINAL IMPRESSION 1. RUQ pain 2. Hx of tetralogy of Fallot repair 3. Orthopnea DISPOSITION Admit 05/23/2023 02:25:39 AM PATIENT REFERRED TO: No follow-up provider specified. DISCHARGE MEDICATIONS: New Prescriptions No medications on file (Comment: Please note this report has been produced using speech recognition software and may contain errors related to that system including errors in grammar, punctuation, and spelling, as well as words and phrases that may be inappropriate. If there are any questions or concerns please feel free to contact the dictating provider for clarification.) Karthikeyan Mccall MD (electronically signed) Emergency Medicine Provider Karthikeyan Mccall MD Resident 05/23/23 0357 Emergency Department Encounter [facility] EMERGENCY DEPT Patient: Omega Le : 1990 Date of Evaluation: 05/22/2023 ED Supervising Physician: Galileo Weathers MD I independently examined and evaluated Omega Le. This will serve as my Supervisory note as the research software engineer of record and shared attestation. I did perform a substantive portion of the visit including all aspects of the Medical Decision Making. I wore appropriate PPE for the entirety of this encounter. In brief, Omega Le is a 32 y.o. male that presents to the emergency department with concern of cholecystitis. Patient has a history of tetralogy of Fallot has had surgeries in the past although most recently was when he was 11 years old. Went to outside facility as he been having 3 days worth of right upper quadrant Arthur pain. Seem to be worse with eating, moving although is now present while sitting. Did have some episodes of nausea and vomiting although none today. Denies any fevers or chills. Ultrasound was done at outside facility that showed 7 mm wall thickening of gallbladder along with white count of 12 was discussed with general surgery on-call and recommended ED evaluation as he would like any cardiac clearance for procedure Focused exam: Patient laying in hospital cot no apparent distress has midline surgical scar in the sternum although nontender to palpation he does have tenderness to palpation of his right upper quadrant and does have voluntary guarding. Brief ED course/MDM: EMERGENCY DEPARTMENT COURSE and DIFFERENTIAL DIAGNOSIS/MDM: Vitals: Vitals: 05/23/23 0035 05/23/23 0058 05/23/23 0316 BP: 113/78 113/68 107/76 Pulse: 57 66 61 Resp: 16 16 16 Temp: 36.6 C (97.9 F) TempSrc: Oral SpO2: 99% 100% 100% Weight: 47.6 kg (105 lb) Height: 1.575 m (5' 2 ) The patient presented with a chief complaint of right upper quadrant pain. The differential diagnosis associated with this patient's presentation includes cholecystitis, electrolyte derangement, new, ACS. Our workup consisted of ordering/reviewing blood work including cardiac clearance as well as preoperative clearance with EKG, CBC, BMP as well as a chest x-ray. Will discuss with general surgery as they were the ones who had accepted patient for transfer to this facility. Will likely require admission for cardiac clearance prior to procedure as he likely does have actual cholecystitis. Patient blood work resulted with elevated white blood cell count 11.1, AST of 51 otherwise bilirubin is within normal limits. Troponin was negative.Ultrasound commented on nonspecific edematous gallbladder wall thickening and mild cholecystic edema. No gallstones and negative sonographic Gaines sign was noted. Did discuss this with surgery and they are not sure that this is related to actual cholecystitis. They believe this may be related to hepatic congestion from cytology below and are recommending medicine evaluation for further work-up and management. Diagnoses as of 05/23/23350 RUQ pain Hx of tetralogy of Fallot repair Orthopnea Diagnostic tests considered but not performed: None External records reviewed: Diagnostics interpreted by me: Discussions with other clinicians: Chronic conditions impacting care: Social determinants of health affecting care: ED Medications managed: Medications calcium gluconate 2000 mg in 100 mL IVPB premix (2,000 mg IntraVENous New Bag 05/23/23313) Prescription drugs considered: Disposition and plan: Right upper quadrant pain, gallbladder wall thickening, admission All diagnostic, treatment, and disposition decisions were made by myself in conjunction with the Resident/ANDREIA. I also supervised [place] portions of any procedures performed by the Resident/ANDREIA. For all further details of the patient's emergency department visit, please see their documentation. (Comment: Please note this report has been produced using speech recognition software and may contain errors related to that system including errors in grammar, punctuation, and spelling, as well as words and phrases that may be inappropriate. If there are any questions or concerns please feel free to contact the dictating provider for clarification.) Galileo Weathers MD [employer] Galileo Weathers MD 05/23/23350 Bed: 42 Expected date: Expected time: Means of arrival: Comments: EMS 32M abd pain Nai De Luna 05/22/23 6827 documented in this encounter [facility] 05-23-2023 Consult note Associated Order (s): IP CONSULT TO GENERAL SURGERY Department of General Surgery Surgical Service - ACS Consult 05/23/2023 PATIENT NAME: Omega Le DATE OF : 1990 CHIEF COMPLAINT: Chief Complaint Patient presents with Abdominal Pain Patient sent from [facility] for cholecystitis. 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 Patient states he has been having right upper quadrant abdominal pain for 3 days. Denies nausea or vomiting, no fever. Reason for Admission: acute cholecystitis ADMIT DATE: 05/22/2023 Reason for Consult: RUQ pain HISTORY OF PRESENT ILLNESS: Omega Le is a 32 y.o. male with significant past medical history of Tetralogy of Fallot status post multiple pediatric cardiac surgeries, tobacco abuse, prior cocaine/heroin abuse who presents as a transfer from [facility] with RUQ pain. General surgery consulted for evaluation and treatment. Patient states about 3 days ago, he had sudden onset right upper quadrant abdominal pain that has persisted until now. For much of his life, he had had similar pain that had come on without identifiable pattern or precipitating factors, but all prior episodes had resolved spontaneously after a much shorter duration and without intervention. He had not seen any physicians for those symptoms in the past. 1 day prior to onset of symptoms during this episode, he endorsed feeling very ill with subjective fevers, nausea, emesis, and feeling as if he was having a heart attack. He presented to [facility] ED that day with a negative work-up. Denies recent travel or sick contacts. States he is passing flatus and having nonbloody BMs. Was tolerating PO at home. Denies fevers, chills. States he normally has exertional chest pain and shortness of breath at baseline. States abd pain is worse when upright, active, and eating and abates when lying flat. Has not seen a well surveying engineer since age 13 (all care previously at [facility]). Denies prior abdominal surgeries and has never had a colonoscopy. Unaware of family history due to being adopted. Endorses smoking 1 pack/day since the age of 10, cocaine and heroin abuse in 2016 and most recent cocaine use 6 months ago, daily marijuana use. Denies EtOH use. Upon evaluation, patient is AF, HDS. Labs notable for WBC 11.1, Cr 0.92, Hb 13.6, Plt 112, AST 51, ALT 47, TB 1.3, DB 0, INR 1.2, trop wnl. ECG SR. RUQ US shows nonspecific edematous GB wall thickening and mild pericholecystic edema, no stones, negative Gaines's sign, CBD 2mm. Past Medical History Past Medical History: Diagnosis Date Tetralogy of Fallot Past Surgical History No past surgical history on file. Medications Prior to Admission: No current facility-administered medications for this encounter. No current outpatient medications on file. Allergies: Patient has no known allergies. Social History Social History Socioeconomic History Marital status: Single Tobacco Use Smoking status: Every Day Types: Cigarettes Substance and Sexual Activity Alcohol use: Not Currently Drug use: Yes Types: Marijuana Family History No family history on file. REVIEW OF SYSTEMS: Review of Systems Constitutional: Negative for chills and fever. HENT: Negative for ear pain and trouble swallowing. Eyes: Negative for pain and discharge. Respiratory: Positive for chest tightness and shortness of breath. Cardiovascular: Negative for chest pain and palpitations. Gastrointestinal: Positive for abdominal distention and abdominal pain. Negative for blood in stool, constipation, diarrhea, nausea and vomiting. Endocrine: Negative for cold intolerance and heat intolerance. Genitourinary: Negative for flank pain and hematuria. Musculoskeletal: Negative for arthralgias and myalgias. Skin: Negative for pallor and wound. Neurological: Negative for speech difficulty and headaches. Psychiatric/Behavioral: Negative for agitation and confusion. PHYSICAL EXAM: Vitals: 05/23/23 0058 BP: 113/68 Pulse: 66 Resp: 16 Temp: 36.6 C (97.9 F) SpO2: 100% No intake/output data recorded. Physical Exam Constitutional: General: He is not in acute distress. HENT: Head: Normocephalic and atraumatic. Right Ear: External ear normal. Left Ear: External ear normal. Nose: Nose normal. No congestion. Mouth/Throat: Mouth: Mucous membranes are moist. Pharynx: Oropharynx is clear. Eyes: Extraocular Movements: Extraocular movements intact. Pupils: Pupils are equal, round, and reactive to light. Cardiovascular: Rate and Rhythm: Normal rate and regular rhythm. Pulses: Normal pulses. Pulmonary: Effort: Pulmonary effort is normal. No respiratory distress. Abdominal: General: There is distension. Palpations: Abdomen is soft. There is no mass. Tenderness: There is abdominal tenderness. There is no guarding or rebound. Hernia: No hernia is present. Musculoskeletal: General: No deformity or signs of injury. Normal range of motion. Cervical back: Normal range of motion and neck supple. Skin: General: Skin is warm and dry. Capillary Refill: Capillary refill takes less than 2 seconds. Neurological: General: No focal deficit present. Mental Status: He is alert and oriented to person, place, and time. DATA: CBC: Lab Results Component Value Date WBC 11.1 (H) 05/23/2023 RBC 4.55 05/23/2023 HGB 13.6 05/23/2023 HCT 41.1 05/23/2023 MCV 90.4 05/23/2023 MCH 29.9 05/23/2023 MCHC 33.1 05/23/2023 RDW 13.9 05/23/2023 PLT 112 (L) 05/23/2023 MPV 8.7 05/23/2023 BMP: Lab Results Component Value Date NA 138 05/23/2023 K 3.6 05/23/2023 CL 107 05/23/2023 CO2 22 05/23/2023 BUN 20 05/23/2023 CREATININE 0.92 05/23/2023 CALCIUM 7.9 (L) 05/23/2023 GLUCOSE 80 05/23/2023 Hepatic Function Panel: Lab Results Component Value Date ALKPHOS 67 05/23/2023 ALT 47 05/23/2023 AST 51 (H) 05/23/2023 PROT 6.5 05/23/2023 BILITOT 1.3 05/23/2023 BILIDIR 0.0 05/23/2023 PT/INR: Lab Results Component Value Date PROTIME 12.3 (H) 05/23/2023 INR 1.2 (H) 05/23/2023 Troponin: Lab Results Component Value Date TROPONINI <0.012 05/23/2023 LIPASE: No results found for: LIPASE Body mass index is 19.2 kg/m . IMAGING: All relevant imaging reviewed by surgery team US abdomen limited Result Date: 05/23/2023 Patient Name: OMEGA LE : 1990 Exam Date/Time: 05/23/2023 01:54 Procedure: US ABDOMEN LIMITED Ordering Provider: WEATHERS JAY Reason For Exam: Upper quadrant pain concern for cholecystitis, outside hospital ultrasound showed wall thickening and pericholecystic fluid ULTRASOUND ABDOMEN LIMITED CLINICAL INDICATION: Upper quadrant pain concern for cholecystitis, outside hospital ultrasound showed wall thickening and pericholecystic fluid TECHNIQUE: Ultrasound of the Right upper quadrant COMPARISON: No relevant prior study is available. FINDINGS: Pancreas: Imaged portion of the pancreas appears within normal limits. Liver: Liver is smooth in contour. No discrete lesion. Gallbladder: Marked gallbladder wall thickening. The gallbladder wall appears edematous. Thickness measures up to 8 mm. Mild pericholecystic fluid. No discrete gallstone. No abnormal gallbladder distention. Gaines's sign: Negative sonographic Gaines's sign. Bile ducts: Unremarkable Common bile duct: 2 mm Right kidney: No hydronephrosis. Right kidney is normal in contour. No calculus. No discrete renal lesion. Ascites: Minimal right upper quadrant ascites. Nonspecific edematous gallbladder wall thickening and mild pericholecystic edema. No gallstones.Negative sonographic Gaines's sign. Minimal right upper quadrant ascites. Report Dictated on Electronically Signed By: Terra Lobo MD Electronically Signed Date/Time: 05/23/2023 2:06 AM EDT XR chest 1 view Result Date: 05/23/2023 Patient Name: OMEGA LE : 1990 Exam Date/Time: 05/23/2023 01:01 Procedure: XR CHEST 1 VIEW Ordering Provider: WEATHERS JAY Reason For Exam: preop, hx of tetrology of fallot CHEST CLINICAL INDICATION: preop, hx of tetrology of fallot TECHNIQUE: AP portable chest COMPARISON: No relevant prior study. FINDINGS: SUPPORT DEVICES: None HEART AND MEDIASTINUM: Prominence of the cardiac silhouette. LUNGS AND PLEURA: No focal consolidation. No sizable pleural effusion . No pneumothorax is identified. OSSEOUS STRUCTURES: Chronic deformity of the left third rib. There is a subtle lucent lesion within the left humeral neck and greater tuberosity, measuring approximately 3.6 cm x 3.3 cm. This appears to have a narrow zone of transition. No cortical breakthrough or periosteal reaction. Lesion contains thin bony septations. This is suggestive of a benign lesion such as an intraosseous cyst, intraosseous lipoma, or hemangioma. Prominence of the cardiac silhouette. Lesion within the left humeral neck and greater tuberosity. Imaging features are nonaggressive. If the patient has or develops corresponding focal pain, recommend further evaluation with dedicated left shoulder radiographs. Report Dictated on Electronically Signed By: Terra Lobo MD Electronically Signed Date/Time: 05/23/2023 1:53 AM EDT ECG 12 lead Sinus rhythm RBBB and LAFB ASSESSMENT AND PLAN: This is a 32 y.o. male with h/o Tetralogy of Fallot and tobacco/cocaine/heroin abuse p/w RUQ pain likely d/t cholecystalgia 2/2 GB wall edema in setting of patient's chronic cardiac condition. Less likely acute cholecystitis at this time. - No acute surgical intervention - Pain control prn - Ok for diet from surgery standpoint - Recommend cardiology consult and perioperative risk stratification if patient were to need surgery at a later date - Recommend medical admission Discussed with attending, Dr. Willy VAZQUEZ MD General Surgery, PGY-3 #[id number] 05/23/2023 1:50 AM Associated attestation - Loretta Aguilera MD - 05/24/2023 10:41 AM EDT ~~~~~~~~~~~~~~~~~~~~~~~~~~~~~~~~ ~~~~~~~~~~~~~~~~~~~~~~~~~~~~~ ATTENDING ADDENDUM Patient Active Problem List Diagnosis RUQ pain I independently saw the above patient and reviewed the recent events, imaging, labs, vital signs; I performed a physical exam and ROS on the same date of service as above. My findings agree with the above note except for any details corrected below. A complete review of systems was obtained and is negative except as stated in HPI. 32M pmhx of ToF s/p repair as an infant, no follow up, previous cocaine and heroin abuse pw RUQ pain TTP RUQ ULT -nonspecific edematous gallbladder wall thickening and mild pericholecystic fluid, no sonographic Gaines signs, no gallstones, right upper quadrant ascites Problem list: Right upper quadrant pain ToF Management: Appreciate medical admission and management Okay for diet Recommend cardiology consultation and work-up - concern for congestive hepatopathy less likely acute acalculous cholecystitis Thank you for this consultation and allowing us to participate in the management of your patient. Please contact me for any concerns or questions regarding the recommendations above. Level of Medical Decision Making: risk of morbidity from additional diagnostic testing or treatment due to right upper quadrant pain []High [x]Moderate []Low Personally Reviewed/Independently interpreted patient's: [x]Epic notes [x]Radiology studies [x]Labs []EKG []Ordering tests []Other Discussed/ With: [x]Patient/Family []RN []Consultants []SW/TCC []Other I spent total time of 62 minutes reviewing previous notes, test results, and face to face with Omega Le discussing the diagnosis and importance of compliance with the treatment plan as well as documenting on the day of the visit. Time was spent, Reviewing medical record including recent tests and results Ordering prescription medications/tests and procedures Communicating results to the patient/family/caregiver Counseling/educating the patient/family/caregiver Documenting clinical information the patient's electronic record Coordination of care for the patient Performing a medical appropriate exam and evaluation Loretta Aguilera MD, FACS Division of Trauma Department of Surgery [facility] ~~~~~~~~~~~~~~~~~~~~~~~~~~~~~~~~ ~~~~~~~~~~~~~~~~~~~~~~~~~~~~~ This note may have been dictated using [id number] Practice Edition 2.6 and/or O[employer]ia Voice Recognition Feature. The document was proofread; however, unrecognized voice recognition cargo station worker errors may be present. [facility] [employer] Work Phone: 05-22-2023 Emergency department Note Bed: 42 Expected date: Expected time: Means of arrival: Comments: EMS 32M abd pain Nai De Luna 05/22/23 8421 [facility] 05-22-2023 Physician Emergency department Note EMERGENCY DEPARTMENT ENCOUNTER Pt Name: Omega Le Birthdate 1990 Date of evaluation: 05/22/2023 ED Provider: Karthikeyan Mccall MD CHIEF COMPLAINT Chief Complaint Patient presents with Abdominal Pain Patient sent from [facility] for cholecystitis. 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 Patient states he has been having right upper quadrant abdominal pain for 3 days. Denies nausea or vomiting, no fever. HISTORY OF PRESENT ILLNESS (Location/Symptom, Timing/Onset, Context/Setting, Quality, Duration, Modifying Factors, Severity) Note limiting factors. I wore appropriate PPE for the entirety of this encounter. HPI Omega Le is a 32 y.o. male who presents to the emergency department as a transfer from [facility] emergency department with concern for acute cholecystitis. Patient has a complicated cardiac history of tetralogy of Fallot who follows with [facility] as a child had 3 repairs surgically most recent at the age of 11. He has been having 1 week of on and off symptoms of orthopnea and some shortness of breath on exertion. He does not currently follow with cardiology. Has no PCP. He also saw outside hospital emergency department for shortness of breath and received CT chest abdomen pelvis which showed no significant abnormality. He then developed for the past 2 to 3 days right upper quadrant pain worse after meals and was seen again in [place] emergency department today and had an ultrasound which showed anterior wall thickening of 7 mm and pericholecystic fluid. Patient was sent over to our emergency department for further evaluation is enough cardiology in house and would like cardiology evaluation prior to any possible surgical intervention given his complicated cardiac history. Nursing Notes were reviewed. Limitations to history: None Outside historians: Outside hospital REVIEW OF SYSTEMS Review of Systems Constitutional: Positive for appetite change. Respiratory: Positive for shortness of breath. Gastrointestinal: Positive for abdominal pain. All other systems reviewed and are negative. Pertinent positives and negatives as per HPI. PAST MEDICAL HISTORY Past Medical History: Diagnosis Date Tetralogy of Fallot SURGICAL HISTORY History reviewed. No pertinent surgical history. CURRENT MEDICATIONS Previous Medications No medications on file ALLERGIES Patient has no known allergies. FAMILY HISTORY No family history on file. SOCIAL HISTORY Social History Socioeconomic History Marital status: Single Tobacco Use Smoking status: Every Day Types: Cigarettes Substance and Sexual Activity Alcohol use: Not Currently Drug use: Yes Types: Marijuana SCREENINGS Marlow Coma Scale Best Eye Response: Spontaneous Best Verbal Response: Oriented Best Motor Response: Follows commands Mitzy Coma Scale Score: 15 PHYSICAL EXAM Physical Exam Constitutional: Appearance: He is not toxic-appearing or diaphoretic. HENT: Head: Normocephalic and atraumatic. Mouth/Throat: Mouth: Mucous membranes are moist. Pharynx: Oropharynx is clear. Eyes: Extraocular Movements: Extraocular movements intact. Pupils: Pupils are equal, round, and reactive to light. Cardiovascular: Rate and Rhythm: Normal rate and regular rhythm. Heart sounds: Murmur heard. Pulmonary: Effort: Pulmonary effort is normal. Breath sounds: Normal breath sounds. Abdominal: General: There is no distension. Tenderness: There is abdominal tenderness in the right upper quadrant. There is no guarding or rebound. Positive signs include Gaines's sign. Negative signs include McBurney's sign. Hernia: No hernia is present. Neurological: Mental Status: He is alert and oriented to person, place, and time. Motor: No weakness. Psychiatric: Mood and Affect: Mood normal. Behavior: Behavior normal. DIAGNOSTIC RESULTS RADIOLOGY (Per Emergency Physician): Interpretation per the Radiologist below, if available at the time of this note: US abdomen limited Final Result Nonspecific edematous gallbladder wall thickening and mild pericholecystic edema. No gallstones.Negative sonographic Gaines's sign. Minimal right upper quadrant ascites. Report Dictated on Electronically Signed By: Terra Lobo MD Electronically Signed Date/Time: 05/23/2023 2:06 AM EDT XR chest 1 view Final Result Prominence of the cardiac silhouette. Lesion within the left humeral neck and greater tuberosity. Imaging features are nonaggressive. If the patient has or develops corresponding focal pain, recommend further evaluation with dedicated left shoulder radiographs. Report Dictated on Electronically Signed By: Terra Lobo MD Electronically Signed Date/Time: 05/23/2023 1:53 AM EDT LABS: Labs Reviewed BASIC METABOLIC PANEL - Abnormal Result Value SODIUM 138 POTASSIUM 3.6 CHLORIDE 107 CARBON DIOXIDE 22 UREA NITROGEN 20 CREATININE 0.92 GLUCOSE 80 CALCIUM 7.9 (*) ANION GAP 9 eGFR >90.0 CBC WITH AUTO DIFFERENTIAL - Abnormal Auto WBC 11.1 (*) RBC 4.55 Hemoglobin 13.6 Hematocrit 41.1 MCV 90.4 MCH 29.9 MCHC 33.1 RDW 13.9 Platelets 112 (*) MPV 8.7 nRBC 0.1 Neutrophils Relative 62.6 Lymphocytes Relative 21.0 Monocytes Relative 8.2 Eosinophils Relative 7.7 (*) Basophils Relative 0.5 Neutrophils Absolute 6.9 Lymphocytes Absolute 2.3 Monocytes Absolute 0.9 (*) Eosinophils Absolute 0.9 (*) Basophils Absolute 0.1 HEPATIC FUNCTION PANEL - Abnormal BILIRUBIN, TOTAL 1.3 BILIRUBIN, DIRECT 0.0 ALKALINE PHOSPHATASE 67 AST (SGOT) 51 (*) ALT 47 ALBUMIN 3.9 TOTAL PROTEIN 6.5 PROTHROMBIN TIME - Abnormal PROTHROMBIN TIME 12.3 (*) INR 1.2 (*) TROPONIN I - Normal TROPONIN I <0.012 Narrative: Patients with high levels of Biotin oral intake (ie >5 mg/day) may have falsely decreased Troponin levels. BLOOD TYPE AND SCREEN GEL ABO Grouping A Antibody Screen NEG Rh Type POS CONFIRMATORY ABO/RH ABO Grouping A Rh Type POS All other labs were within normal range or not returned as of this dictation. EMERGENCY DEPARTMENT COURSE and DIFFERENTIAL DIAGNOSIS/MDM: Vitals: Vitals: 05/23/23 0035 05/23/23 0058 05/23/23 0316 BP: 113/78 113/68 107/76 Pulse: 57 66 61 Resp: 16 16 16 Temp: 36.6 C (97.9 F) TempSrc: Oral SpO2: 99% 100% 100% Weight: 47.6 kg (105 lb) Height: 1.575 m (5' 2 ) The patient presented with a chief complaint of right upper quadrant abdominal pain with outside ultrasound reviewed which showed evidence of cholecystitis a calculus. Repeat ultrasound again shows 7.7 mm anterior wall thickening pericholecystic fluid. He does have some symptoms of heart failure. Chest x-ray not show any pulmonary edema does not appear volume overloaded but with his significant cardiac history is possible he is having congestive heart failure in this setting. 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 Patient was discussed with general surgery admitting hospitalist and general surgery believes this may be related to congestion from congestive heart failure and this may not need surgical intervention. Patient already received Zosyn antibiotics discussed admitting hospitalist will continue antibiotics with surgical consultation for possible cholecystitis and further evaluation from cardiology was Tetralogy of Fallot and potential preop clearance. Patient admitted. Diagnoses as of 05/23/23356 RUQ pain Hx of tetralogy of Fallot repair Orthopnea External records reviewed: Outside emergency department ultrasound and lab work showing leukocytosis and signs of cholecystitis. Diagnostics interpreted by me: EKG showing right bundle block and left anterior fascicular block with abnormal T waves no clear ischemic changes no previous for comparison. Ultrasound gallbladder shows wall thickening and pericholecystic fluid concerning for cholecystitis Discussions with other clinicians: General surgery admitting hospitalist Chronic conditions impacting care: Previous Tetralogy of Fallot repair Social determinants of health affecting care: No PCP ED Medications managed: Pain was well controlled did not require any further pain control and already received Zosyn Prescription drugs considered: Antibiotics pain medications PROCEDURES: Unless otherwise noted below, none Procedures FINAL IMPRESSION 1. RUQ pain 2. Hx of tetralogy of Fallot repair 3. Orthopnea DISPOSITION Admit 05/23/2023 02:25:39 AM PATIENT REFERRED TO: No follow-up provider specified. DISCHARGE MEDICATIONS: New Prescriptions No medications on file (Comment: Please note this report has been produced using speech recognition software and may contain errors related to that system including errors in grammar, punctuation, and spelling, as well as words and phrases that may be inappropriate. If there are any questions or concerns please feel free to contact the dictating provider for clarification.) Karthikeyan Mccall MD (electronically signed) Emergency Medicine Provider Karthikeyan Mccall MD Resident 05/23/23356 [facility] 05-22-2023 Physician Emergency department Note Emergency Department Encounter [facility] EMERGENCY DEPT Patient: Omega Le : 1990 Date of Evaluation: 05/22/2023 ED Supervising Physician: Galileo Weathers MD I independently examined and evaluated Omega Le. This will serve as my Supervisory note as the research software engineer of record and shared attestation. I did perform a substantive portion of the visit including all aspects of the Medical Decision Making. I wore appropriate PPE for the entirety of this encounter. In brief, Omega Le is a 32 y.o. male that presents to the emergency department with concern of cholecystitis. Patient has a history of tetralogy of Fallot has had surgeries in the past although most recently was when he was 11 years old. Went to outside facility as he been having 3 days worth of right upper quadrant Arthur pain. Seem to be worse with eating, moving although is now present while sitting. Did have some episodes of nausea and vomiting although none today. Denies any fevers or chills. Ultrasound was done at outside facility that showed 7 mm wall thickening of gallbladder along with white count of 12 was discussed with general surgery on-call and recommended ED evaluation as he would like any cardiac clearance for procedure Focused exam: Patient laying in hospital cot no apparent distress has midline surgical scar in the sternum although nontender to palpation he does have tenderness to palpation of his right upper quadrant and does have voluntary guarding. Brief ED course/MDM: EMERGENCY DEPARTMENT COURSE and DIFFERENTIAL DIAGNOSIS/MDM: Vitals: Vitals: 05/23/23 0035 05/23/23 0058 05/23/23 0316 BP: 113/78 113/68 107/76 Pulse: 57 66 61 Resp: 16 16 16 Temp: 36.6 C (97.9 F) TempSrc: Oral SpO2: 99% 100% 100% Weight: 47.6 kg (105 lb) Height: 1.575 m (5' 2 ) The patient presented with a chief complaint of right upper quadrant pain. The differential diagnosis associated with this patient's presentation includes cholecystitis, electrolyte derangement, new, ACS. Our workup consisted of ordering/reviewing blood work including cardiac clearance as well as preoperative clearance with EKG, CBC, BMP as well as a chest x-ray. Will discuss with general surgery as they were the ones who had accepted patient for transfer to this facility. Will likely require admission for cardiac clearance prior to procedure as he likely does have actual cholecystitis. Patient blood work resulted with elevated white blood cell count 11.1, AST of 51 otherwise bilirubin is within normal limits. Troponin was negative.Ultrasound commented on nonspecific edematous gallbladder wall thickening and mild cholecystic edema. No gallstones and negative sonographic Gaines sign was noted. Did discuss this with surgery and they are not sure that this is related to actual cholecystitis. They believe this may be related to hepatic congestion from cytology below and are recommending medicine evaluation for further work-up and management. Diagnoses as of 05/23/23350 RUQ pain Hx of tetralogy of Fallot repair Orthopnea Diagnostic tests considered but not performed: None External records reviewed: Diagnostics interpreted by me: Discussions with other clinicians: Chronic conditions impacting care: Social determinants of health affecting care: ED Medications managed: Medications calcium gluconate 2000 mg in 100 mL IVPB premix (2,000 mg IntraVENous New Bag 05/23/23313) Prescription drugs considered: Disposition and plan: Right upper quadrant pain, gallbladder wall thickening, admission All diagnostic, treatment, and disposition decisions were made by myself in conjunction with the Resident/ANDREIA. I also supervised cam[place] portions of any procedures performed by the Resident/ANDREIA. For all further details of the patient's emergency department visit, please see their documentation. (Comment: Please note this report has been produced using speech recognition software and may contain errors related to that system including errors in grammar, punctuation, and spelling, as well as words and phrases that may be inappropriate. If there are any questions or concerns please feel free to contact the dictating provider for clarification.) Galileo Weathers MD [employer] Galileo Weathers MD 05/23/23 035 [employer] Work Phone: 05-22-2023 Note HNO ID: [id number] Author: Misty Schwab APRN.ELECTRICAL LABORATORY TECHNICIAN Service: ? Author Type: Nurse Practitioner Type: Progress Notes Filed: 05/22/2023 2:56 PM Note Text: Came in with complaints of severe abdominal pain in the right upper quadrant. Patient says its been about 3 days seems to be getting worse. Patient says its significantly worse after he eats but he can only eat a couple bites and then he feels extremely full and bloated. Patient states he is not a drinker but did used to drink about a year ago. At this time patient is being referred to the ED because upon lightly touching his stomach patient jumped off the table. Patient was okay with this care plan. [facility] 05-22-2023 History of Presen t illness Narrative Came in with complaints of severe abdominal pain in the right upper quadrant. Patient says its been about 3 days seems to be getting worse. Patient says its significantly worse after he eats but he can only eat a couple bites and then he feels extremely full and bloated. Patient states he is not a drinker but did used to drink about a year ago. At this time patient is being referred to the ED because upon lightly touching his stomach patient jumped off the table. Patient was okay with this care plan. documented in this encounter [facility] 04-01-2023 Hospital Discharg e instructions Patient Education 04/01/2023 11:25:51 Chest Pain, Noncardiac Noncardiac Chest Pain Based on your visit today, the healthcare provider doesn t know what is causing your chest pain. In most cases, people who come to the emergency department with chest pain don t have a problem with their heart. Instead, the pain is caused by other conditions. It's important for the healthcare team to be sure you are not having a life threatening cause for chest pain such as a heart attack, blood clot in the lungs, collapsed lung, ruptured esophagus, or tearing of the aorta. Once these major causes have been ruled out, you may have further evaluation for non-heart causes of chest pain. These may be problems with the lungs, muscles, bones, digestive tract, nerves, or mental health. Lung problems Inflammation around the lungs (pleurisy) Collapsed lung (pneumothorax) Fluid around the lungs (pleural effusion) Lung cancer (a rare cause of chest pain) Muscle or bone problems Inflamed cartilage between the ribs (costochondritis) Fibromyalgia Rheumatoid arthritis Chest wall strain Digestive system problems Reflux Stomach ulcer Spasms of the esophagus Gall stones Gallbladder inflammation Mental health conditions Panic or anxiety attacks Emotional distress Your condition doesn t seem serious and your pain doesn t appear to be coming from your heart. But sometimes the signs of a serious problem take more time to appear. Watch for the warning signs listed below. Home care Follow these guidelines when caring for yourself at home: Rest today and avoid strenuous activity. Take any prescribed medicine as directed. Follow-up care Follow up with your healthcare provider, or as advised, if you don t start to feel better within 24 hours. When to seek medical advice Call your healthcare provider right away if any of these occur: A change in the type of pain. Call if it feels different, becomes more serious, lasts longer, or begins to spread into your shoulder, arm, neck, jaw, or back. Shortness of breath You feel more pain when you breathe Cough with dark-colored mucus or blood Weakness, dizziness, or fainting Fever of 100.4 F (38 C) or higher, or as directed by your healthcare provider Swelling, pain, or redness in one leg [id number] [employer] [place] [address]. All rights reserved. This information is not intended as a substitute for professional medical care. Always follow your healthcare professional's instructions. Follow Up Care 04/01/2023 08:49:07 With:Call Physician Referral Address:Unknown When:2-4 days [facility] 04-01-2023 Note Discharge Instructions Thank you for allowing [facility] to assist you with your healthcare needs. The following is important discharge information regarding your hospital visit. Diagnosis from Today's Visit Chest wall pain Chest pain What to Do Next Instructions from Your Care Team You are also given referral to follow-up with cardiovascular consultants. Nursing will provide phone number to call for follow-up appointment. No qualifying data available. Post Acute Orders No qualifying data available. You Need to Schedule the Following Appointments Follow Up with Call Physician Referral When Within 2-4 days Allergies No Known Medication Allergies Medications Please ask your primary doctor or pharmacist before taking any other medication not listed, including over the counter drugs, herbal medications, vitamins and or supplements as they may interact with your home medications. What How Much When Why Instructions Last Dose New naproxen (Anaprox-DS 550 mg oral tablet) 1 tab(s) by mouth Two (2) times a day Chest wall pain Printed Prescription Please take this list to your next doctor s visit. Bring all medications you take, including over the counter medications, herbals and other supplements with you to your doctor s visit. Patients and families are reminded to discard old lists and to update any records with all medication providers or retail pharmacies. Education Materials Noncardiac Chest Pain Based on your visit today, the healthcare provider doesn t know what is causing your chest pain. In most cases, people who come to the emergency department with chest pain don t have a problem with their heart. Instead, the pain is caused by other conditions. It's important for the healthcare team to be sure you are not having a life threatening cause for chest pain such as a heart attack, blood clot in the lungs, collapsed lung, ruptured esophagus, or tearing of the aorta. Once these major causes have been ruled out, you may have further evaluation for non-heart causes of chest pain. These may be problems with the lungs, muscles, bones, digestive tract, nerves, or mental health. Lung problems Inflammation around the lungs (pleurisy) Collapsed lung (pneumothorax) Fluid around the lungs (pleural effusion) Lung cancer (a rare cause of chest pain) Muscle or bone problems Inflamed cartilage between the ribs (costochondritis) Fibromyalgia Rheumatoid arthritis Chest wall strain Digestive system problems Reflux Stomach ulcer Spasms of the esophagus Gall stones Gallbladder inflammation Mental health conditions Panic or anxiety attacks Emotional distress Your condition doesn t seem serious and your pain doesn t appear to be coming from your heart. But sometimes the signs of a serious problem take more time to appear. Watch for the warning signs listed below. Home care Follow these guidelines when caring for yourself at home: Rest today and avoid strenuous activity. Take any prescribed medicine as directed. Follow-up care Follow up with your healthcare provider, or as advised, if you don t start to feel better within 24 hours. When to seek medical advice Call your healthcare provider right away if any of these occur: A change in the type of pain. Call if it feels different, becomes more serious, lasts longer, or begins to spread into your shoulder, arm, neck, jaw, or back. Shortness of breath You feel more pain when you breathe Cough with dark-colored mucus or blood Weakness, dizziness, or fainting Fever of 100.4 F (38 C) or higher, or as directed by your healthcare provider Swelling, pain, or redness in one leg [id number] [employer]. [address] [place] [address]. All rights reserved. This information is not intended as a substitute for professional medical care. Always follow your healthcare professional's instructions. Additional Information VACCINATE! IT SAVES LIVES! Members of the community who have not yet received the COVID-19 vaccine and would like to receive it can visit one of [facility] vaccine clinics. There are many vaccine clinic locations within the [facility]. For locations and available times, please visit [email or web address] [email or web address] It is important to note that some COVID mobile vaccine clinics are held outdoors and may be canceled in rainy or stormy conditions. To learn more about pediatric vaccinations (ages 5-11), we invite you to visit the [facility] webpage. https://www.[email or web address].org/p [email or web address]-Rrusv-Vfakwkzuhbz-Freq [email or web address].[email or web address] To learn more about the COVID-19 vaccine, we invite you to visit the CDC website for a list of frequently asked questions. https://www.cdc.gov/coronavirus/ 2019-ncov/vaccines/faq.html [employer] Patient Portal Access Instructions: Stay connected with your healthcare team and access your personal medical information anytime with the [employer] Patient Portal. If you would like a full copy of your medical records please contact the [facility] Medical Records Department Thursday through Thursday between 8a.m. and 4:30p.m. Please follow the directions below to access the portal: 1.Access the email account you provided upon registration to the hospital.2.Look for an invitation email from [facility].3.Open the email and access the invitation link: Accept Invitation to [employer]4.Fill in the required melendrez to create your account. Sign into [email or web address] with your username and password that you created in the above steps to stay up to date. You can then view a summary of results, a summary of your visits, and the ability to download your summaries to your computer or send the information securely to a physician. Remember that your healthcare information is confidential, so carefully consider who you will allow to register on the [facility] Patient Portal for access to your information. You can also access the [facility] Patient Portal on the [employer]ive andreia. Simply click on Health Records under Health Data and then click on the [employer] logo. HOW TO SAFELY DISPOSE OF PRESCRIPTION MEDICATIONS Please use one of the following methods to safely dispose of your unused medications. 1.Use a drug disposal kit: the drug disposal pouch allows you to safely discard your old and unused drugs. Ask your nurse to give you one when you are discharged.2.Visit a local take-back location: Many local pharmacies and police departments have programs that collect old and unwanted prescription drugs. Call your local pharmacy or go to http://Callvine.Retention Education/3G9Gj1t to find one close to you.3.Make use of household items: Use cat litter or old coffee grounds to dispose medications if other options are not available. Mix your drugs with these household products, seal them in an airtight container and throw it into the garbage. Call [facility]: [phone] to be sure your drugs can be disposed of in this way. Some medicines may require a different approach.4.Never flush your medications down the toilet. IF YOU HAVE BEEN PRESCRIBED AN OPIOIDS FOR PAIN If you have been prescribed an opioid (such as hydrocodone, oxycodone or morphine), it is critical to understand the possible side effects and risks of opioid pain medications. Even when taken as directed, opioids can have several side effects including: Tolerance, meaning you might need to take more of a medication for the same pain relief. Nausea, vomiting and/or constipation. Sleepiness, dizziness, dry mouth, confusion, depression or itching. Physical dependence, meaning you have withdrawal symptoms when a medication is stopped ? this can develop within a few days. KNOW YOUR RESPONSIBILITIES It is important to know exactly how much and how often to take the opioid pain medications you are prescribed. Never take opioids in higher amounts or more often than prescribed. Do not combine opioids with alcohol or other drugs that cause drowsiness, such as benzodiazepines, also known as benzos, including diazepam and alprazolam, muscle relaxants or sleep aids. Never sell or share prescription opioids. This is illegal. Store opioids in a secure place and out of reach of others (including children, family, friends and visitors). The last page(s) of this document has been signed and retained as a CHART COPY Signatures Patient Education Materials Chest Pain, Noncardiac Medication Leaflets My discharge plan and instructions have been reviewed and explained to me and I,OMEGA LE I understand my current condition and have read and understand these discharge instructions. I have received a written copy of the plan/instructions. If I have questions, I am aware that I should contact my doctor. 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: Date/Time: Relationship to Patient: Witness Name/Signature: Date/Time: [facility] 04-01-2023 Note ORIGINAL EXAMINATION: TWO XRAY VIEWS OF THE CHEST04/01/2023 9:52 am COMPARISON: None HISTORY: ORDERING SYSTEM PROVIDED HISTORY: Reason for Exam: SOB/Cough/Fever FINDINGS: The heart size is normal.Calcification projects within the anterior mediastinum. There is no pulmonary consolidation. No pneumothorax or pleural effusion. 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 IMPRESSION: No acute radiographic findings. Calcifications project within the anterior mediastinum. It is unclear if these calcifications relate to partially calcified lymph node or other partially calcified lesions. 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 There is no pulmonary consolidation. No pneumothorax or pleural effusion. 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 IMPRESSION: No acute radiographic findings. Calcifications project within the anterior mediastinum. It is unclear if these calcifications relate to partially calcified lymph node or other partially calcified lesions. 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 They're similar to varicose veins that form in the legs. Hemorrhoids can happen inside the rectum (internal hemorrhoids). Or one may form at the anal opening (external hemorrhoids). They may bleed, but most hemorrhoids aren't cause for concern. But a small blood clot (thrombus) can develop in an external hemorrhoid. This may lead to severe pain and sometimes bleeding. When to go to the emergency room (ER) If you have severe pain or excessive bleeding, seek medical care right away. What to expect in the ER A healthcare provider is likely to check your anus and rectum using a thin, lighted tube (anoscope or proctoscope). You will get a local pain reliever (anesthetic) to ease any mild pain. Treatment Treatment recommendations include: If the blood clot has formed within the past 48 to 72 hours, your healthcare provider may remove it from within the hemorrhoid. This is a simple procedure that can ease pain. You will have a local anesthetic to keep you pain-free during the procedure. The provider makes a small cut (incision) in the skin and removes the blood clot. Stitches are generally not needed. If more than 72 hours have passed, your healthcare provider will suggest home treatments. Simple home treatments can ease your pain. These may include warm baths, ointments, suppositories, and witch bryan compresses. Many thrombosed hemorrhoids go away on their own in a few weeks. If you have bleeding that continues or painful hemorrhoids, talk with your healthcare provider. Possible treatment may include banding, ligation, or removal (hemorrhoidectomy). Tips for preventing hemorrhoids Tips include: Eat foods that are high in fiber and use fiber supplements to help prevent constipation. Drink plenty of liquids. Get regular exercise to help prevent constipation and promote good bowel function. [id number] [employer]. [address] [place] [address]. All rights reserved. This information is not intended as a substitute for professional medical care. Always follow your healthcare professional's instructions. Follow Up Care 01/20/2023 15:58:04 With:Call Physician Referral Address:Unknown When:2-4 days [facility] 01-20-2023 Note Discharge Instructions Thank you for allowing [facility] to assist you with your healthcare needs. The following is important discharge information regarding your hospital visit. Diagnosis from Today's Visit Thrombosed hemorrhoids Hemorrhoid What to Do Next Instructions from Your Care Team Warm soaks or warm compresses 3-4 times a day for the next several days Discharge Return to Work, School, or Sports (Return to Work, School, or Sports) - Ordered -- 01/20/23, 01/22/23, May return to: work, 01/20/23 16:54:00 EDT Discharge Return to Work, School, or Sports (Return to Work, School, or Sports) - Ordered -- 01/20/23, 01/22/23, May return to: work, 01/20/23 17:00:00 EDT Post Acute Orders No qualifying data available. You Need to Schedule the Following Appointments Follow Up with Call Physician Referral When Within 2-4 days Allergies No Known Medication Allergies Medications Please ask your primary doctor or pharmacist before taking any other medication not listed, including over the counter drugs, herbal medications, vitamins and or supplements as they may interact with your home medications. What How Much When Why Instructions Last Dose New hydrocortisone-pramoxine topical (Proctofoam HC 1%-1% rectal foam) 1 application in the rectum Three (3) times a day Thrombosed hemorrhoids Duration: 5 Days Printed Prescription Please take this list to your next doctor s visit. Bring all medications you take, including over the counter medications, herbals and other supplements with you to your doctor s visit. Patients and families are reminded to discard old lists and to update any records with all medication providers or retail pharmacies. Medication Leaflets hydrocortisone and pramoxine (topical/rectal) (RAVI droe KOR ti sone and pra MOX een) Analpram-HC, Epifoam, Pramcort, Pramosone, Pramosone E, ProCort, Proctofoam HC What is the most important information I should know about hydrocortisone and pramoxine topical? Follow all directions on your medicine label and package. Tell each of your healthcare providers about all your medical conditions, allergies, and all medicines you use. What is hydrocortisone and pramoxine topical? Hydrocortisone is a steroid. It reduces the actions of chemicals in the body that cause inflammation. Pramoxine is an anesthetic, or 'numbing medicine.' It works by interfering with pain signals sent from the nerves to the brain. Hydrocortisone and pramoxine topical (for the skin) is a combination medicine used to treat itching and discomfort caused by allergic reactions, eczema, minor harrison, insect bites, or other skin conditions. Hydrocortisone and pramoxine rectal (for the rectum) is used to treat itching or swelling caused by hemorrhoids or other inflammatory conditions of the rectum or anus. Hydrocortisone and pramoxine topical may also be used for other purposes not listed in this medication guide. What should I discuss with my health care provider before using hydrocortisone and pramoxine topical? You should not use this medicine if you are allergic to hydrocortisone or pramoxine, or to any other anesthetics or 'numbing medicines.' To make sure hydrocortisone and pramoxine is safe for you, tell your doctor if you have: liver disease; diabetes; problems with your eyes; a stomach or intestinal disorder; a rectal sore or infection; or if you use any drugs that weaken the immune system, including steroids. Hydrocortisone and pramoxine topical will not treat a bacterial, fungal, or viral skin infection. If you have a skin infection, you should not use this medication until your infection is treated and clears up. FDA category C. It is not known whether hydrocortisone and pramoxine will harm an unborn baby. Tell your doctor if you are or plan to become while using this medication. It is not known whether hydrocortisone and pramoxine passes into breast milk or if it could harm a nursing baby. Tell your doctor if you are breast-feeding a baby. Do not use this medicine on a child without a doctor's advice. Children are more sensitive to the effects of topical hydrocortisone. How should I use hydrocortisone and pramoxine topical? Follow all directions on your prescription label. Do not use this medicine in larger or smaller amounts or for longer than recommended. Do not use hydrocortisone and pramoxine to treat any condition that has not been checked by your doctor. Wash your hands before and after applying this medicine, unless you are using hydrocortisone and pramoxine to treat a hand condition. Use only a small amount of hydrocortisone and pramoxine topical on the affected area and rub it gently into the skin. Do not cover the treated skin area unless your doctor tells you to. Covering the skin that is treated with this medicine can increase the amount of the drug your skin absorbs, which may lead to unwanted side effects. Follow your doctor's instructions. Do not take hydrocortisone and pramoxine rectal by mouth. It is for use only in your rectum. Shake the hydrocortisone and pramoxine rectal foam before each use. For best results from the rectal medication, use only the applicator provided with the medication. Otherwise, follow the directions provided with your medicine. Clean the rectal area with mild soap and water before applying the medicine, or use any cleansing wipes provided with your medicine. Your body may absorb too much of this medication if you use a large amount, if you apply it over large skin areas, or if you cover treated skin with heat, bandages, or plastic wrap. Skin that is cut or irritated may also absorb more topical medication than healthy skin. Call your doctor if your symptoms do not improve, if they get worse, or if you develop signs of infection (redness, swelling, oozing) while using hydrocortisone and pramoxine. This medicine will not treat a bacterial, fungal, or viral skin infection. Store at room temperature away from moisture and heat. Do not refrigerate the rectal aerosol foam. Keep the rectal foam canister away from open flame or high heat. The canister may explode if it gets too hot. Do not puncture or burn an empty canister. What happens if I miss a dose? Since hydrocortisone and pramoxine is used when needed, you may not be on a dosing schedule. If you are on a schedule, use the missed dose as soon as you remember. Skip the missed dose if it is almost time for your next scheduled dose. Do not use extra medicine to make up the missed dose. What happens if I overdose? Seek emergency medical attention or call the Poison Help line at . An overdose of hydrocortisone and pramoxine topical is not expected to produce life-threatening symptoms. However, long-term use of high steroid doses can lead to symptoms such as thinning skin, easy bruising, changes in the shape or location of body fat (especially in your face, neck, back, and waist), increased facial hair, menstrual problems, impotence, or loss of interest in sex. What should I avoid while using hydrocortisone and pramoxine topical? Do not apply this medication to swollen skin areas or deep puncture wounds. Avoid using the medicine on skin that is raw or blistered, such as a severe burn or abrasion. Avoid using on body areas where you have skin folds or thin skin unless your doctor has told you to. Avoid getting this medication in your eyes, mouth, and nose, or on your lips. If this does happen, rinse with water. What are the possible side effects of hydrocortisone and pramoxine topical? Get emergency medical help if you have any of these signs of an allergic reaction: hives; difficulty breathing; swelling of your face, lips, tongue, or throat. Stop using this medication and call your doctor at once if you show signs of absorbing too much of the medicine through your skin, such as: blurred vision, eye pain, or seeing halos around lights; mood changes; sleep problems (insomnia); high blood sugar (increased thirst or urination, hunger, dry mouth, fruity breath odor,weight loss); weight gain, puffiness in your face; or muscle weakness, feeling tired. Stop using the medicine and call your doctor if you have rectal bleeding or severe irritation in any treated skin. Common side effects may include: mild redness or swelling of treated skin; thinning of treated skin; or numbness on areas where the medicine is accidentally applied. This is not a complete list of side effects and others may occur. Call your doctor for medical advice about side effects. You may report side effects to FDA at 8-317-UGC-3207. What other drugs will affect hydrocortisone and pramoxine topical? It is not likely that other drugs you take orally or inject will have an effect on topically applied hydrocortisone and pramoxine. But many drugs can interact with each other. Tell each of your health care providers about all medicines you use, including prescription and xjrr-btk-onethyc medicines, vitamins, and herbal products. Where can I get more information? Your pharmacist can provide more information about hydrocortisone and pramoxine topical. Remember, keep this and all other medicines out of the reach of children, never share your medicines with others, and use this medication only for the indication prescribed. Every effort has been made to ensure that the information provided by [employer]. ('[employer]') is accurate, up-to-date, and complete, but no guarantee is made to that effect. Drug information contained herein may be time sensitive. [employer] information has been compiled for use by healthcare practitioners and consumers in the [place] and therefore [employer] does not warrant that uses outside of the [place] are appropriate, unless specifically indicated otherwise. [employer] drug information does not endorse drugs, diagnose patients or recommend therapy. [employer] drug information is an informational resource designed to assist licensed healthcare practitioners in caring for their patients and/or to serve consumers viewing this service as a supplement to, and not a substitute for, the expertise, skill, knowledge and judgment of healthcare practitioners. The absence of a warning for a given drug or drug combination in no way should be construed to indicate that the drug or drug combination is safe, effective or appropriate for any given patient. [employer] does not assume any responsibility for any aspect of healthcare administered with the aid of information [facility] provides. The information contained herein is not intended to cover all possible uses, directions, precautions, warnings, drug interactions, allergic reactions, or adverse effects. If you have questions about the drugs you are taking, check with your doctor, nurse or pharmacist. Copyright 5756-6863 [employer]. Version: 2.09. Revision Date: 03/06/2014. Education Materials Thrombosed Hemorrhoids Hemorrhoids are swollen veins in the lower rectum and anus. They're similar to varicose veins that form in the legs. Hemorrhoids can happen inside the rectum (internal hemorrhoids). Or one may form at the anal opening (external hemorrhoids). They may bleed, but most hemorrhoids aren't cause for concern. But a small blood clot (thrombus) can develop in an external hemorrhoid. This may lead to severe pain and sometimes bleeding. When to go to the emergency room (ER) If you have severe pain or excessive bleeding, seek medical care right away. What to expect in the ER A healthcare provider is likely to check your anus and rectum using a thin, lighted tube (anoscope or proctoscope). You will get a local pain reliever (anesthetic) to ease any mild pain. Treatment Treatment recommendations include: If the blood clot has formed within the past 48 to 72 hours, your healthcare provider may remove it from within the hemorrhoid. This is a simple procedure that can ease pain. You will have a local anesthetic to keep you pain-free during the procedure. The provider makes a small cut (incision) in the skin and removes the blood clot. Stitches are generally not needed. If more than 72 hours have passed, your healthcare provider will suggest home treatments. Simple home treatments can ease your pain. These may include warm baths, ointments, suppositories, and witch bryan compresses. Many thrombosed hemorrhoids go away on their own in a few weeks. If you have bleeding that continues or painful hemorrhoids, talk with your healthcare provider. Possible treatment may include banding, ligation, or removal (hemorrhoidectomy). Tips for preventing hemorrhoids Tips include: Eat foods that are high in fiber and use fiber supplements to help prevent constipation. Drink plenty of liquids. Get regular exercise to help prevent constipation and promote good bowel function. [id number] [employer]. [address] [place] [address], [place] [address]. All rights reserved. This information is not intended as a substitute for professional medical care. Always follow your healthcare professional's instructions. Additional Information VACCINATE! IT SAVES LIVES! Members of the community who have not yet received the COVID-19 vaccine and would like to receive it can visit one of [facility] vaccine clinics. There are many vaccine clinic locations within the [facility]. For locations and available times, please visit [email or web address] [email or web address] It is important to note that some COVID mobile vaccine clinics are held outdoors and may be canceled in rainy or stormy conditions. To learn more about pediatric vaccinations (ages 5-11), we invite you to visit the [facility] webpage. [email or web address] [email or web address] To learn more about the COVID-19 vaccine, we invite you to visit the CDC website for a list of frequently asked questions. https://www.cdc.gov/coronavirus/ 2019-ncov/vaccines/faq.html [facility] Patient Portal Access Instructions: Stay connected with your healthcare team and access your personal medical information anytime with the [facility] Patient Portal. If you would like a full copy of your medical records please contact the [facility] Medical Records Department Thursday through Thursday between 8a.m. and 4:30p.m. Please follow the directions below to access the portal: 1.Access the email account you provided upon registration to the hospital.2.Look for an invitation email from [facility].3.Open the email and access the invitation link: Accept Invitation to [facility]4.Fill in the required melendrez to create your account. Sign into [email or web address] with your username and password that you created in the above steps to stay up to date. You can then view a summary of results, a summary of your visits, and the ability to download your summaries to your computer or send the information securely to a physician. Remember that your healthcare information is confidential, so carefully consider who you will allow to register on the [facility] Patient Portal for access to your information. You can also access the [facility] Patient Portal on the [employer]. Simply click on Health Records under Health Data and then click on the [employer] logo. HOW TO SAFELY DISPOSE OF PRESCRIPTION MEDICATIONS Please use one of the following methods to safely dispose of your unused medications. 1.Use a drug disposal kit: the drug disposal pouch allows you to safely discard your old and unused drugs. Ask your nurse to give you one when you are discharged.2.Visit a local take-back location: Many local pharmacies and police departments have programs that collect old and unwanted prescription drugs. Call your local pharmacy or go to http://Callvine.Retention Education/4R2Ps8j to find one close to you.3.Make use of household items: Use cat litter or old coffee grounds to dispose medications if other options are not available. Mix your drugs with these household products, seal them in an airtight container and throw it into the garbage. Call [facility]: [phone] to be sure your drugs can be disposed of in this way. Some medicines may require a different approach.4.Never flush your medications down the toilet. IF YOU HAVE BEEN PRESCRIBED AN OPIOIDS FOR PAIN If you have been prescribed an opioid (such as hydrocodone, oxycodone or morphine), it is critical to understand the possible side effects and risks of opioid pain medications. Even when taken as directed, opioids can have several side effects including: Tolerance, meaning you might need to take more of a medication for the same pain relief. Nausea, vomiting and/or constipation. Sleepiness, dizziness, dry mouth, confusion, depression or itching. Physical dependence, meaning you have withdrawal symptoms when a medication is stopped ? this can develop within a few days. KNOW YOUR RESPONSIBILITIES It is important to know exactly how much and how often to take the opioid pain medications you are prescribed. Never take opioids in higher amounts or more often than prescribed. Do not combine opioids with alcohol or other drugs that cause drowsiness, such as benzodiazepines, also known as benzos, including diazepam and alprazolam, muscle relaxants or sleep aids. Never sell or share prescription opioids. This is illegal. Store opioids in a secure place and out of reach of others (including children, family, friends and visitors). The last page(s) of this document has been signed and retained as a CHART COPY Signatures Patient Education Materials Thrombosed Hemorrhoids Medication Leaflets hydrocortisone and pramoxine (topical/rectal) My discharge plan and instructions have been reviewed and explained to me and I,OMEGA LE I understand my current condition and have read and understand these discharge instructions. I have received a written copy of the plan/instructions. If I have questions, I am aware that I should contact my doctor. 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: Date/Time: Relationship to Patient: Witness Name/Signature: Date/Time: [facility] Evaluation + Plan note No data available for this section [facility] Diagnosis RUQ pain- Primary Abdominal pain, right upper quadrant RUQ pain Abdominal pain, right upper quadrant Hx of tetralogy of Fallot repair Orthopnea [facility] Diagnosis TOF (tetralogy of Fallot)- Primary Tetralogy of Fallot [facility] Diagnosis H/O tetralogy of Fallot repair Personal history of surgery to heart and great vessels, presenting hazards to health [facility] H/O tetralogy of Fallot repair- Primary Personal history of surgery to heart and great vessels, presenting hazards to health 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 for referral (narrative)* Outpatient Procedure (Routine) - Pending Review Specialty Diagnoses / Procedures Referred By Benitez roper Referred To Contact [facility] Diagnoses TOF (tetralogy of Fallot) Procedures ECHO SPECIALIST COMPLEX ADULT CONGENITAL ECHO TTHRC R-T 2D W/WOM-MODE COMPL SPEC&COLR D Rubia Berger MD [address] [place] [address] [address] Referral ID Status Reason Start Date Expiration Date Visits Requested Visits Authorized [id number] Pending Review Auto-Generat ed Referral 06/02/2023 06/01/2024 1 1 * Outpatient Procedure (Routine) - Pending Review Specialty Diagnoses / Procedures Referred By Benitez roper Referred To Contact [facility] Diagnoses TOF (tetralogy of Fallot) Procedures ECG COMPLETE ECG ROUTINE ECG W/LEAST 12 LDS W/I&R Rubia Berger MD [address] [place] [address] [address] Referral ID Status Reason Start Date Expiration Date Visits Requested Visits Authorized [id number] Pending Review Auto-Generat ed Referral 06/02/2023 06/01/2024 1 1 [facility] Summary Purpose Family History No Family History Records FoundNo Family History Records FoundNo Family History Records FoundNo Family History Records Found Advance Directives Latest Code Status on File Code Status Date Activated Date Inactivated Comments Full Code 05/23/2023 4:45 AM 05/25/2023 4:51 PM Additional Source Comments Patient Care team informatio n (unrecognized section and content) 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 Specialty Start Date End Date [place] [address] PCP - General Pediatrics 08/13/23 (unrecognized sect ion and content) No Status Records FoundNo Status Records FoundNo Status Records FoundNo Status Records Found INFORMATION SOURCE (unrecogn ized section and content) DATE CREATED AUTHOR AUTHOR'S ORGANIZ ATION 05/29/2023 [facility] DATE CREATED AUTHOR AUTHOR'S ORGANIZ ATION 06/03/2023 [facility] DATE CREATED AUTHOR AUTHOR'S ORGANIZ ATION 10/14/2023 [facility] Source Comments (unrecognize d section and content) In the event this informatio n is protected by the Federal Confidentiality of Alcohol and Drug Abuse Patient Records regulations: The Federal rules restrict any use of the information to criminally investigate or prosecute any alcohol or drug abuse patient.[facility] event this information is protected by the Federal Confidentiality of Alcohol and Drug Abuse Patient Records regulations: The Federal rules restrict any use of the information to criminally investigate or prosecute any alcohol or drug abuse patient.[facility] event this information is protected by the Federal Confidentiality of Alcohol and Drug Abuse Patient Records regulations: The Federal rules restrict any use of the information to criminally investigate or prosecute any alcohol or drug abuse patient.[facility] Reason for Visit (unrecogniz ed section and content) Specialty Diagnoses / Procedures Referred By Benitez t Referred To Contact [facility] / [facility] Diagnoses Intermittent right upper quadrant abdominal pain upper right abdominal pain Procedures EST SAME DAY Janis Martin PA-C [address] [place] [address] Misty Schwab APRN.ELECTRICAL LABORATORY TECHNICIAN [address] [place] [address] Referral ID Status Reason Start Date Expiration Date Visits Re quested Visits Authorized [id number] Denied 05/22/2023 08/20/2023 1 0 Reason Comments Abdominal Pain Patient sent from [facility] for cholecystitis. 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 Patient states he has been having right upper quadrant abdominal pain for 3 days. Denies nausea or vomiting, no fever. Specialty Diagnoses / Procedures Referred By Benitez roper Referred To Contact Diagnoses Orthopnea RUQ pain Hx of tetralogy of Fallot repair acute cholecystitis Procedures .. Verna Beckwith MD [address] [address] [facility] Tele/Med [address] [place] [id number] Referral ID Status Reason Start Date Expiration Date Visits Re quested Visits Authorized [id number] 1 1 Reason Comments Appointment Specialty Diagnoses / Procedures Referred By Benitez roper Referred To Contact Radiology Diagnoses H/O tetralogy of Fallot repair Procedures MRI Cardiac Velocity Flow Mapping [facility] CARDIAC MRI FOR VELOCITY FLOW MAPPING [place] [address] Referral ID Status Reason Start Date Expiration Date Visits Re quested Visits Authorized [id number] Closed 06/12/2023 07/28/2023 1 1 Specialty Diagnoses / Procedures Referred By Benitez roper Referred To Contact Radiology Diagnoses H/O tetralogy of Fallot repair Procedures MRI Cardiac Morphology With and Without Contrast CHG CARDIAC MRI W/W/O CONTRAST & FURTHER SEQ [place] [address] Referral ID Status Reason Start Date Expiration Date Visits Re quested Visits Authorized [id number] Closed 06/12/2023 07/28/2023 1 1 Scheduled Active and Recently Administ ered Medications (unrecognized section and content) PRN Medication Order 05/23/2023 05/24/2023 05/25/2023 acetaminophen (Tylenol) suppository 650 mg(Linked Group 1) 650 mg, Rectal, Every 6 hours PRN, mild pain (1-3), fever, For temp greater than 100.4 F (38 C), Starting on 05/23/23 at 0445, Administer if oral route cannot be used. Maximum dose of acetaminophen is 4000 mg from all sources in 24 hours. acetaminophen (Tylenol) tablet 650 mg(Linked Group 1) 650 mg, Oral, Every 6 hours PRN, mild pain (1-3), fever, For temp greater than 100.4 F (38 C), Starting on 05/23/23 at 0445, Maximum dose of acetaminophen is 4000 mg from all sources in 24 hours. HYDROmorphone (Dilaudid) injection 0.5 mg 0.5 mg, IntraVENous, Every 3 hours PRN, moderate pain (4-6), severe pain (7-10), Starting on 05/23/23 at 1044, ONLY FOR USE WHILE NPO. If oral and IV narcotics ordered, use oral first and only use IV if oral is ineffective or cannot take oral. Do Not give oral and IV within 1 hour of each other unless specifically ordered. melatonin tablet 3 mg 3 mg, Oral, Nightly PRN, sleep, Starting on 05/23/23 at 0445 ondansetron (Zofran) injection 4 mg(Linked Group 2) 4 mg, IntraVENous, Every 6 hours PRN, nausea, vomiting, Starting on 05/23/23 at 0445, 1st Line. Give IV if patient is unable to take orally. If inadequate response within 60 minutes, proceed to next-line agent or contact provider if no further options ordered. ondansetron ODT (Zofran-ODT) disintegrating tablet 4 mg(Linked Group 2) 4 mg, Oral, Every 8 hours PRN, nausea, vomiting, Starting on 8/26/23 at 0445, 1st Line. If inadequate response within 60 minutes, proceed to next-line agent or contact provider if no further options ordered. Patient should allow tablet to dissolve on tongue. Do not remove from blister pack until just before administering. oxyCODONE (Roxicodone) immediate release tablet 5 mg 5 mg, Oral, Every 4 hours PRN, moderate pain (4-6), severe pain (7-10), Starting on 05/23/23 at 1044 Linked Groups Order Group 1: acetaminophen (Tylenol) tablet 650 mgJump to med 650 mg, Oral, Every 6 hours PRN, mild pain (1-3), fever, For temp greater than 100.4 F (38 C), Starting on 05/23/23 at 0445
Maximum dose of acetaminophen is 4000 mg from all sources in 24 hours.
Or acetaminophen (Tylenol) suppository 650 mgJump to med 650 mg, Rectal, Every 6 hours PRN, mild pain (1-3), fever, For temp greater than 100.4 F (38 C), Starting on 05/23/23 at 0445
Administer if oral route cannot be used. Maximum dose of acetaminophen is 4000 mg from all sources in 24 hours.
Group 2: ondansetron ODT (Zofran-ODT) disintegrating tablet 4 mgJump to med 4 mg, Oral, Every 8 hours PRN, nausea, vomiting, Starting on 05/23/23 at 0445
1st Line. If inadequate response within 60 minutes, proceed to next-line agent or contact provider if no further options ordered. Patient should allow tablet to dissolve on tongue. Do not remove from blister pack until just before administering.
Or ondansetron (Zofran) injection 4 mgJump to med 4 mg, IntraVENous, Every 6 hours PRN, nausea, vomiting, Starting on 05/23/23 at 0445
1st Line. Give IV if patient is unable to take orally. If inadequate response within 60 minutes, proceed to next-line agent or contact provider if no further options ordered.
FOR RECORDS PERTAINING TO PATIENTS WHO ARE OR HAVE BEEN ENROLLED IN A CHEMICAL DEPENDENCY/SUBSTANCEABUSE PROGRAM, SOME INFORMATION MAY BE OMITTED. This clinical summary was aggregated from multiple sources. Caution should be exercised in using it in the provision of clinical care. This summary normalizes information from multiple sources, and as a consequence, information in this document may materially change the coding, format and clinical context of patient data. In addition, data may be omitted in some cases. CLINICAL DECISIONS SHOULD BE BASED ON THE PRIMARY CLINICAL RECORDS. [facility], [facility]. provides no warranty or guarantee of the accuracy or completeness of information in this document.
== END | disposition home or self-care (01) ==
LOC: CVS 11:05
DX: I82.812 Embolism and thrombosis of superficial veins of left lower extremity (principal)
CPT/HCPCS: 93970

== ENCOUNTER 2024-03-01 17:04 | Emergency (ER) | payer MEDICAID, SELFPAY ==
[2024-03-01] VITALS (13 sets, daily range): BP systolic 111–126; BP diastolic 64–85; PULSE 60–73; RESP 14–27; TEMP 36.6–36.8; O2SAT 97–99; BMI 22.1
--- NOTE | 2024-03-01 17:45 | EKG12_ITS ---
Test Reason : CP Blood Pressure : / mmHG Vent. Rate : 067 BPM Atrial Rate : 067 BPM P-R Int : 154 ms QRS Dur : 168 ms QT Int : 442 ms P-R-T Axes : -05 019 058 degrees QTc Int : 467 ms Normal sinus rhythm Right bundle branch block Inferior infarct , age undetermined Abnormal ECG QT has shortened Confirmed by Sagar Carr ([id number]), video tape editor KWAN PEREZ ([id number]) on 03/02/2024 2:55:42 PM Referred By: NICHOLE/PARVIN Confirmed By:Sagar Carr
--- NOTE | 2024-03-01 17:50 | RAD_ITS ---
INDICATION: chest pain EXAMINATION/TECHNIQUE: X-RAY - XR Chest 1 View COMPARISON: May 31, 2023 FINDINGS: LINES/DEVICES: Sternotomy wires are present. LUNGS: No consolidation, edema or effusion. No pneumothorax. MEDIASTINUM AND CARDIOVASCULAR STRUCTURES: Cardiac silhouette not enlarged. Central airways and mediastinal contour are unremarkable. BONES AND SOFT TISSUES: Unremarkable. RAD/Chest 1 View (Portable) IMPRESSION: No radiographic evidence of acute cardiopulmonary disease. Electronically Signed: Elliot Weston DO at 18:03 EDT ,
[2024-03-01 17:58] LABS: Absolute Neutrophil Count 5.3 X10^3/uL (2.0-7.7); Basophil# 0.12 X10^3/uL; Basophil% 1.1 % (0-1); Eosinophil# 1.49 X10^3/uL; Eosinophils% 14.2 % (0-5); Hematocrit 46.2 % (40-54); Lymphocyte % 27.5 % (19-41); Mean Corp Hgb Conc 32.5 g/dL (32-36); Mean Corpuscular Hgb 26.5 pg (27.0-32.0); Mean Corpuscular Volume 81.5 fL (80-94); Mean Platelet Vol. 9.9 fl (6.2-12.0); Monocyte# 0.73 X10^3/uL; Monocyte% 6.9 % (0-10); NRBC Flagged by Analyzer 0 % (0-5); Neutrophil # 5.26 X10^3/uL (2.7-7.7); Platelet Count 260 K/mm3 (150-450); RBC Distribution Width CV 13.8 % (11.6-14.6); RBC Distribution Width SD 40.4 fl (35.1-43.9); Red Blood Count 5.67 M/mm3 (4.6-6.2); White Blood Count 10.5 K/mm3 (4.4-11.0)
[2024-03-01] MEDS: Aspirin 81 MG TAB.CHEW 324 MG PO (17:59)
[2024-03-01 18:15] LABS: Anion Gap 6 (5-15); BUN 17 mg/dL (7-18); Calcium,Total 9.2 mg/dL (8.5-10.1); Chloride 106 mmol/L (98-107); EST Glomerular Filtration Rate 104 mL/min (>60); Est Glom Filt Rate - Afr Amer 126 mL/min (>60); Estimated Creatinine Clearance 87.17 ml/min; Glucose 98 mg/dL (74-106); Potassium 3.8 mmol/L (3.5-5.1); Sodium Level 137 mmol/L (136-145); Troponin-I HS (w/2H Reflex) 5 pg/mL (3.0-78.0)
[2024-03-01 19:53] LABS: Reflex Troponin-HS? (from REC) Y
[2024-03-01 20:49] LABS: Troponin-I HS 4 pg/mL (3.0-78.0)
--- NOTE | 2024-03-01 23:18 | ED.VIS.CHEST ---
HPI History of Present Illness Chief Complaint: Chest Pain Narrative Narrative: 33-year-old male with history of tetralogy of Fallot as a child status post 4 cardiac surgeries last 1 was in September presenting with chest pain. He states he has had some pressure in the chest for the last 2 days fairly constantly. Today it was worse and he had some radiation to his left arm. Lightheadedness or dizziness. Denies nausea. He states he actually feels like he is okay but wanted to get checked out given his cardiac history. Patient does not have any current DVT/PE risk factors. 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 Hx of cardiac catheterization (~05/12/01) S/P TOF (tetralogy of Fallot) repair (~04/1996) Hx of Kiko-Taussig shunt (~09/1991) Hx of pulmonic valve replacement (~11/03/00) Social History household members: family Smoking Status: Current every day smoker tobacco type: cigarettes alcohol intake: never substance use type: marijuana caffeine: Yes (all the time) Type: carbonated beverages ROS ROS ED Constitutional Constitutional ED: Denies chills, fever(s) or sweats Eyes Eyes: Denies blurry vision or change in vision ENT ENT ED: Denies ear pain or sore throat Cardiovascular Cardiovascular: Reports chest pain; Denies palpitations or racing heartbeat Respiratory/Chest Respiratory/Chest: Denies cough, dyspnea or sputum Gastrointestinal Gastrointestinal: Denies abdominal pain, constipation, diarrhea, nausea or vomiting Genitourinary Genitourinary ED: Denies dysuria, hematuria or urinary frequency Musculoskeletal Musculoskeletal: Denies arthralgias, myalgias or neck pain Integumentary Denies abscess, Abrasions or rash Neurologic Neurologic: Denies headache(s), paresthesias or weakness Psychiatric Psychiatric: Denies anxiety, depression, suicidal ideation or suicidal thoughts Endocrine Endocrinology: Denies polydipsia or polyuria EXAM Physical Exam Const Vital Signs: 03/01/24 17:05 03/01/24 17:27 03/01/24 17:45 Temperature 97.9 F Temperature Source Temporal Pulse Rate 73 Respiratory Rate 17 Respiratory Effort Normal Non-Labored Blood Pressure 126/85 H Blood Pressure Mean 98 Pulse Ox 99 Oxygen Delivery Method Room Air Room Air 03/01/24 18:00 03/01/24 18:04 03/01/24 18:30 Temperature Temperature Source Pulse Rate 67 72 62 Respiratory Rate 16 23 H 24 H Respiratory Effort Blood Pressure 120/80 122/79 H 115/79 Blood Pressure Mean 93 93 91 Pulse Ox 99 Oxygen Delivery Method 03/01/24 18:45 03/01/24 19:00 03/01/24 19:00 Temperature Temperature Source Pulse Rate 66 64 67 Respiratory Rate 19 H 24 H 24 H Respiratory Effort Blood Pressure 120/82 H 112/78 112/78 Blood Pressure Mean 93 89 89 Pulse Ox 97 Oxygen Delivery Method Room Air 03/01/24 19:15 03/01/24 19:30 03/01/24 19:45 Temperature Temperature Source Pulse Rate 62 67 60 Respiratory Rate 25 H 18 19 H Respiratory Effort Blood Pressure 124/78 H 111/78 112/78 Blood Pressure Mean 91 89 90 Pulse Ox Oxygen Delivery Method 03/01/24 20:00 03/01/24 20:15 03/01/24 21:00 Temperature Temperature Source Pulse Rate 70 66 62 Respiratory Rate 27 H 26 H 23 H Respiratory Effort Blood Pressure 114/74 121/70 H 119/80 Blood Pressure Mean 86 85 93 Pulse Ox 97 Oxygen Delivery Method Room Air 03/01/24 21:39 Temperature 98.2 F Temperature Source Pulse Rate 68 Respiratory Rate 14 Respiratory Effort Blood Pressure 117/64 Blood Pressure Mean 81 Pulse Ox 98 Oxygen Delivery Method Positive well nourished General Appearance ED: Negative for pallor HEENT Reports moist mucous membranes normocephalic Eyes PERRL and EOMs intact bilaterally Chest Wall inspection of chest normal Resp normal respiratory effort and clear to auscultation bilaterally Auscultation: Negative for rales, rhonchi or wheezes Cardio regular rate and regular rhythm Neuro oriented x3 and CN's II-XII intact bilaterally Sensorium / Orientation: awake Motor Exam: strength 5/5 throughout Skin no rashes or lesions noted General Skin Exam: Negative for jaundice or pallor MDM MDM MDM Narrative Medical decision making narrative: Patient presenting with chest pain. He has multiple surgeries on his heart status post tetralogy of Fallot as a child. He sees [facility] for all his care. States he had 2 days of constant chest pain which is little worse today. Differential includes but is not limited to ACS, pneumonia, pneumothorax, muscle strain, costochondritis. Considered PE however patient is PERC negative. CBC will be obtained to assess white blood cell count, hemoglobin, platelets. BMP to assess renal function, electrolytes, glucose. High-sensitivity troponin and EKG to assess for ischemia/dysrhythmia. BNP to assess for CHF. Chest x-ray to rule out pneumonia. CBC shows normal white blood cell count 10.5. Hemoglobin 15.0. Platelets are normal at 260. Renal function electrolytes within normal limits. Initial high-sensitivity troponin is 5. Delta troponin is 4. Chest x-ray interpreted by myself shows no acute cardiopulmonary process. Radiology interpretation agrees. EKG sinus rhythm 67 bpm with right bundle branch block pattern. Given patient's workup is ultimately normal I feel he stable for discharge. I recommend he follow-up with his cardiology team. Return precautions were discussed. Impression: 1. Chest pain Lab Data Attestation: I reviewed the patient's lab results. Labs: Laboratory Results - last 24 hr 03/01/24 03/01/24 17:18 20:02 WBC 10.5 RBC 5.67 Hgb 15.0 Hct 46.2 MCV 81.5 MCH 26.5 L MCHC 32.5 RDW Std Deviation 40.4 RDW Coeff of Boris 13.8 Plt Count 260 MPV 9.9 Immature Gran % (Auto) 0.300 Neut % (Auto) 50.0 Lymph % (Auto) 27.5 Glascock % (Auto) 6.9 Eos % (Auto) 14.2 H Baso % (Auto) 1.1 H Absolute Neuts (auto) 5.3 Absolute Lymphs (auto) 2.90 Nucleated RBC % 0 Sodium 137 Potassium 3.8 Chloride 106 Carbon Dioxide 25.0 Anion Gap 6 BUN 17 Creatinine 0.90 Estim Creat Clear Calc 87.17 Est GFR (MDRD) Af Amer 126 Est GFR (MDRD) Non-Af 104 BUN/Creatinine Ratio 19.0 Glucose 98 Calcium 9.2 Troponin I High Sens 5 4 Radiography Diagnostic Testing: Clinical Impression(s) from Imaging Studies Chest X-Ray 03/01/24 17:50 IMPRESSION: No radiographic evidence of acute cardiopulmonary disease. Electronically Signed: Elliot Weston DO at 18:03 EDT Reading Location ID and State: [facility] / [place] Tel [phone], Service support , Discharge Plan Triage Chief Complaint: Chest Pain ED Provider: Gilmer Kidd Dx/Rx/DC Orders Instructions: ED Chest Pain, Uncertain Cause Prescriptions: No Action aspirin 81 mg capsule 81 mg PO DAILY Stand Alone Forms: Work / School Excuse Primary Care Provider: LUIS AC Referrals: LUIS AC CRNP [Primary Care Provider] - Print Language: Romanian Disposition Disposition: Home, Self Care Discharge Date/Time: 03/01/24 21:41
== END 2024-03-01 21:41 | disposition home or self-care (01) ==
PROVIDERS: Emergency Provider Student in an Organized Health Care Education/Training Program; PCP Nurse Practitioner Adult Health; Visit Provider Student in an Organized Health Care Education/Training Program
DX: R07.9 Chest pain, unspecified (principal); F12.90 Cannabis use, unspecified, uncomplicated; J45.909 Unspecified asthma, uncomplicated; F17.210 Nicotine dependence, cigarettes, uncomplicated; Z79.82 Long term (current) use of aspirin
CPT/HCPCS: 71045; 80048; 84484; 85025; 93005; 99284; A4216